=== PATIENT | male | born 1975 | race African-American/Black ===

== ENCOUNTER 2017-04-07 08:24 | Emergency (ER) | payer MEDICARE, MEDICAID ==
[2017-04-07 09:18] LABS: #Eosinphils 0.1 thou/uL (0.0-0.7); #Lymphocytes 1.3 thou/uL (1.20-3.40); #Monocytes 0.4 thou/uL (0.11-0.59); #Neutrophils 3.9 thou/uL (1.40-6.50); %Basophils 0.2 % (0.0-1.0); %Eosinophils 2.5 % (0.0-10.0); %Lymphocytes 22.4 % (21.0-51.0); %Monocytes 6.3 % (0.0-10.0); Hematocrit 31.9 % (42.0-52.0); Mean Platelet Volume 8.6 fL (7.4-10.4); Red Blood Cell (RBC) Count 3.35 mill/uL (4.70-6.10); White Blood Cell (WBC) Count 5.7 thou/uL (4.8-10.8)
[2017-04-07 09:30] LABS: ALT (SGPT) 14 U/L (8-55); AST (SGOT) 17 U/L (5-34); Alkaline Phosphatase 130 U/L (40-150); Anion Gap 23 mmol/L (10-20); BUN (Urea Nitrogen) 82 mg/dL (8.9-20.6); Bilirubin, Total 1.5 mg/dL (0.2-1.2); Calc. Creatinine Clearance 0 mL/min (70-130); Carbon Dioxide 21 mmol/L (22-29); Chloride 93 mmol/L (98-107); Estimated GFR-MDRD 5; Globulin 4.4 g/dL (2.4-3.5); Protein, Total 7.9 g/dL (6.0-8.3)
[2017-04-07] MEDS ORDERED: Mag-Al 1200 mg/1200 mg/30 ML UDCUP ONE (10:42)
[2017-04-07] MEDS ORDERED: Lidocaine Viscous Sol 2% 15 ml UD Cup ONE (10:42)
== END 2017-04-07 11:15 | disposition home or self-care (01) ==
LOC: ERS 08:24
DX: I12.0 Hypertensive chronic kidney disease with stage 5 chronic kidney disease or end stage renal disease (principal); N18.6 End stage renal disease; E11.9 Type 2 diabetes mellitus without complications; K21.9 Gastro-esophageal reflux disease without esophagitis; F32.9 Major depressive disorder, single episode, unspecified; F17.220 Nicotine dependence, chewing tobacco, uncomplicated; Z99.2 Dependence on renal dialysis
CPT/HCPCS: 36415; 80053; 85025

== ENCOUNTER 2017-04-26 06:41 | Emergency (ER) | payer MEDICARE, MEDICAID ==
[2017-04-26 07:39] LABS: Troponin I 0.016 ng/mL (< 0.028)
[2017-04-26 07:51] LABS: Hematocrit 36.3 % (42.0-52.0); Mean Platelet Volume 8.4 fL (7.4-10.4); Red Blood Cell (RBC) Count 3.59 mill/uL (4.70-6.10); White Blood Cell (WBC) Count 5.4 thou/uL (4.8-10.8)
[2017-04-26 07:57] LABS: ALT (SGPT) 35 U/L (8-55); AST (SGOT) 48 U/L (5-34); Alkaline Phosphatase 137 U/L (40-150); Anion Gap 29 mmol/L (10-20); BUN (Urea Nitrogen) 71 mg/dL (8.9-20.6); Bilirubin, Total 1.3 mg/dL (0.2-1.2); CK (CPK) 603 U/L (30-200); Calc. Creatinine Clearance 0 mL/min (70-130); Calcium 7.2 mg/dL (7.8-10.44); Carbon Dioxide 15 mmol/L (22-29); Chloride 99 mmol/L (98-107); Estimated GFR-MDRD 8; Globulin 4.5 g/dL (2.4-3.5); Lipase 26 U/L (8-78)
--- NOTE | 2017-04-26 08:13 | RAD ---
PORTABLE CHEST: DATE: 04/26/17. PROVIDED CLINICAL HISTORY: Cough. FINDINGS: Comparison is made with the study dated 01/23/17. The cardiac silhouette remains enlarged. There is rather diffuse bilateral airspace disease. No definite pleural fluid or pneumothorax evident. IMPRESSION: 1. Cardiomegaly 2. Diffuse bilateral airspace disease. Findings may reflect alveolar edema related to congestive h eart failure. Infectious and inflammatory changes are also possible. Followup is recommended. POS: [facility]
[2017-04-26 08:19] LABS: Band 2 % (5-11); Neutrophil 67 % (42-75)
== END 2017-04-26 08:55 | disposition home or self-care (01) ==
LOC: ERS 06:41
DX: E87.70 Fluid overload, unspecified (principal); I12.0 Hypertensive chronic kidney disease with stage 5 chronic kidney disease or end stage renal disease; E11.22 Type 2 diabetes mellitus with diabetic chronic kidney disease; N18.6 End stage renal disease; F17.220 Nicotine dependence, chewing tobacco, uncomplicated; F32.9 Major depressive disorder, single episode, unspecified; E78.5 Hyperlipidemia, unspecified; Z99.2 Dependence on renal dialysis; Z79.899 Other long term (current) drug therapy
CPT/HCPCS: 36415; 71010; 80053; 82553; 83690; 83880; 84484; 85025; 93005

== ENCOUNTER 2017-05-10 06:43 | Emergency (ER) | payer MEDICARE, MEDICAID ==
[2017-05-10 07:13] LABS: #Basophils 0.1 thou/uL (0.0-0.2); #Eosinphils 0.4 thou/uL (0.0-0.7); #Lymphocytes 1.7 thou/uL (1.20-3.40); #Monocytes 0.5 thou/uL (0.11-0.59); #Neutrophils 2.4 thou/uL (1.40-6.50); %Basophils 1.1 % (0.0-1.0); %Eosinophils 8.6 % (0.0-10.0); %Monocytes 9.9 % (0.0-10.0); Hematocrit 38.1 % (42.0-52.0); Mean Platelet Volume 8.6 fL (7.4-10.4); Red Blood Cell (RBC) Count 3.78 mill/uL (4.70-6.10); White Blood Cell (WBC) Count 5.1 thou/uL (4.8-10.8)
[2017-05-10 07:35] LABS: ALT (SGPT) 122 U/L (8-55); AST (SGOT) 173 U/L (5-34); Alkaline Phosphatase 153 U/L (40-150); Anion Gap 23 mmol/L (10-20); BUN (Urea Nitrogen) 67 mg/dL (8.9-20.6); Bilirubin, Total 1.3 mg/dL (0.2-1.2); CK (CPK) 585 U/L (30-200); Calc. Creatinine Clearance 0 mL/min (70-130); Calcium 7.5 mg/dL (7.8-10.44); Carbon Dioxide 25 mmol/L (22-29); Chloride 91 mmol/L (98-107); Estimated GFR-MDRD 7; Globulin 4.2 g/dL (2.4-3.5); Protein, Total 7.6 g/dL (6.0-8.3)
[2017-05-10 07:38] LABS: Troponin I 0.038 ng/mL (< 0.028)
--- NOTE | 2017-05-10 08:27 | RAD ---
EXAM: ONE VIEW CHEST: COMPARISON: 04/26/17. HISTORY: Weakness. FINDINGS: Enlarged cardiac silhouette. The pulmonary vessels are prominent. There are bilateral perihilar int erstitial and alveolar infiltrates. No pleural effusion or pneumothorax. IMPRESSION: Congestive heart failure, volume overload. POS: [facility]
--- NOTE | 2017-06-15 12:44 | EKG ---
Test Reason : Blood Pressure : / mmHG Vent. Rate : 075 BPM Atrial Rate : 075 BPM P-R Int : 192 ms QRS Dur : 106 ms QT Int : 486 ms P-R-T Axes : 057 031 225 degrees QTc Int : 542 ms Normal sinus rhythm Possible Left atrial enlargement Prolonged QT Abnormal ECG No change from 04/26/2017 Confirmed by CARLYN WEBB, JUWAN ([id number]), editorial director ASHLI LIPSCOMB ([id number]) on 06/15/2017 12:43:43 PM Referred By: Confirmed By:JUWAN ALCOCER MD
== END 2017-05-10 08:46 | disposition home or self-care (01) ==
LOC: ERS 06:43
DX: I12.0 Hypertensive chronic kidney disease with stage 5 chronic kidney disease or end stage renal disease (principal); E11.22 Type 2 diabetes mellitus with diabetic chronic kidney disease; N18.6 End stage renal disease; Z99.2 Dependence on renal dialysis; K21.9 Gastro-esophageal reflux disease without esophagitis; F32.9 Major depressive disorder, single episode, unspecified; F17.220 Nicotine dependence, chewing tobacco, uncomplicated
CPT/HCPCS: 36415; 71010; 80053; 82553; 84484; 85025; 93005; 99406

== ENCOUNTER 2017-08-30 00:56 | Emergency (ER) | payer MEDICARE, MEDICAID ==
[2017-08-30 02:15] LABS: ALT (SGPT) 30 U/L (8-55); AST (SGOT) 43 U/L (5-34); Albumin 3.6 g/dL (3.5-5.0); Alkaline Phosphatase 119 U/L (40-150); Anion Gap 19 mmol/L (10-20); BUN (Urea Nitrogen) 66 mg/dL (8.9-20.6); Bilirubin, Total 2.2 mg/dL (0.2-1.2); Calc. Creatinine Clearance 0 mL/min (70-130); Calcium 9.3 mg/dL (7.8-10.44); Carbon Dioxide 27 mmol/L (22-29); Chloride 92 mmol/L (98-107); Estimated GFR-MDRD 10; Globulin 3.6 g/dL (2.4-3.5); Glucose 156 mg/dL (70-105); Lipase 16 U/L (8-78); Protein, Total 7.2 g/dL (6.0-8.3); Sodium 134 mmol/L (136-145)
[2017-08-30 02:19] LABS: Hemoglobin 11.6 g/dL (14.0-18.0); Mean Corpuscular HGB CONC 32.7 g/dL (32.0-36.0); Mean Corpuscular Hemoglobin 33.6 pg (27.0-31.0); RBC Distribution Width 17.4 % (11.5-14.5); Red Blood Cell (RBC) Count 3.45 mill/uL (4.70-6.10); White Blood Cell (WBC) Count 5.2 thou/uL (4.8-10.8)
[2017-08-30 02:21] LABS: #Eosinphils 0.3 thou/uL (0.0-0.7); #Lymphocytes 1.6 thou/uL (1.20-3.40); #Monocytes 0.5 thou/uL (0.11-0.59); #Neutrophils 2.8 thou/uL (1.40-6.50); %Basophils 0.8 % (0.0-1.0); %Eosinophils 6.2 % (0.0-10.0); %Lymphocytes 30.1 % (21.0-51.0); %Monocytes 9.4 % (0.0-10.0); %Neutrophils 53.5 % (42.0-75.0); Mean Platelet Volume 8.7 fL (7.4-10.4); PLT Morphology Comment Appears Decreased; Platelet Count 111 thou/uL (130-400)
[2017-08-30] MEDS ORDERED: Ondansetron HCl/PF 4 MG/2 ML Vial ONE (03:11)
[2017-08-30] MEDS ORDERED: Metoclopramide HCl 10 MG/2 ML VIAL ONE (03:11)
--- NOTE | 2017-08-30 07:44 | RAD ---
CHEST 1 VIEW: HISTORY: Pain. COMPARISON: 05/10/17. FINDINGS: Heart is markedly enlarged. The pulmonary vessels are within normal limits. Costophrenic angles are clear. No consolidation or mass. No pneumothorax or osseous abnormalities. IMPRESSION: Cardiomegaly. POS: [facility]
== END 2017-08-30 04:24 | disposition home or self-care (01) ==
LOC: ERS 00:56
DX: R10.13 Epigastric pain (principal); R11.0 Nausea; E11.9 Type 2 diabetes mellitus without complications; K21.9 Gastro-esophageal reflux disease without esophagitis; I12.0 Hypertensive chronic kidney disease with stage 5 chronic kidney disease or end stage renal disease; N18.6 End stage renal disease; E78.5 Hyperlipidemia, unspecified; F32.9 Major depressive disorder, single episode, unspecified; F17.220 Nicotine dependence, chewing tobacco, uncomplicated; Z79.899 Other long term (current) drug therapy; Z79.82 Long term (current) use of aspirin; Z79.4 Long term (current) use of insulin
CPT/HCPCS: 36415; 71045; 80053; 83690; 85025; 93005; 94760; 96361; 96374; 96375; 99406; J2405; J2765

== ENCOUNTER 2017-10-02 23:19 | Emergency (ER) | payer MEDICARE, OTHER ==
[2017-10-02 23:57] LABS: #Eosinphils 0.5 thou/uL (0.0-0.7); #Lymphocytes 1.5 thou/uL (1.20-3.40); #Monocytes 0.4 thou/uL (0.11-0.59); #Neutrophils 2.9 thou/uL (1.40-6.50); %Basophils 0.6 % (0.0-1.0); %Eosinophils 8.8 % (0.0-10.0); %Lymphocytes 28.2 % (21.0-51.0); %Monocytes 8.2 % (0.0-10.0); %Neutrophils 54.3 % (42.0-75.0); Mean Corpuscular HGB CONC 32.4 g/dL (32.0-36.0); Mean Corpuscular Hemoglobin 33.5 pg (27.0-31.0); Mean Platelet Volume 9.2 fL (7.4-10.4); Platelet Count 124 thou/uL (130-400); RBC Distribution Width 16.2 % (11.5-14.5); Red Blood Cell (RBC) Count 3.88 mill/uL (4.70-6.10); White Blood Cell (WBC) Count 5.4 thou/uL (4.8-10.8)
[2017-10-03 00:38] LABS: ALT (SGPT) 20 U/L (8-55); AST (SGOT) 33 U/L (5-34); Albumin 3.7 g/dL (3.5-5.0); Alkaline Phosphatase 193 U/L (40-150); Anion Gap 21 mmol/L (10-20); BUN (Urea Nitrogen) 50 mg/dL (8.9-20.6); Bilirubin, Total 1.1 mg/dL (0.2-1.2); Calc. Creatinine Clearance 0 mL/min (70-130); Calcium 9.7 mg/dL (7.8-10.44); Carbon Dioxide 22 mmol/L (22-29); Chloride 98 mmol/L (98-107); Estimated GFR-MDRD 9; Globulin 4.5 g/dL (2.4-3.5); Glucose 199 mg/dL (70-105); Lipase 48 U/L (8-78); Potassium 4.9 mmol/L (3.5-5.1); Protein, Total 8.2 g/dL (6.0-8.3); Sodium 136 mmol/L (136-145)
[2017-10-03] MEDS ORDERED: Morphine 4 MG/ML VIAL ONE (00:46)
--- NOTE | 2017-10-03 12:35 | CT ---
PRELIMINARY REPORT/[facility]/EMERGENTY AFTER-HOURS PROCEDURE CT Abdomen and Pelvis With Intravenous Contrast CLINICAL HISTORY: 42 years old, male; Pain; Abdominal pain; Generalized; Patient HX: M42 presented to ed C/O abdominal pain with n/v/d onset 2200. Pt denies any blood in vomitus or in stool. Pt denies cp, SOB, fever, chi lls. Pt reports HX of dm. TECHNIQUE: Axial computed tomography images of the abdomen and pelvis with intravenous contrast. Coronal reforma tted images were created and reviewed. COMPARISON: No relevant prior studies available. FINDINGS: Lung bases: Unremarkable. No mass. No consolidation. Heart: Incompletely imaged enlargement of the cardiomediastinal silhouette. ABDOMEN: Liver: Prominence of the liver with normal contour without obvious cirrhotic morphology. Gallbladder and bile ducts: Status post cholecystectomy. Pancreas: Mild swelling and inflammatory changes of the pancreatic head. Spleen: Unremarkable. Adrenals: Unremarkable. Kidneys and ureters: Horseshoe kidney. Stomach and bowel: Unremarkable. Appendix: Postsurgical changes in the right lower quadrant. PELVIS: Bladder: Diffuse urinary bladder wall thickening. Reproductive: Unremarkable. ABDOMEN and PELVIS: Intraperitoneal space: Ascites present. Ascites in small left inguinal hernia. No free air. Bones/joints: No acute fracture. No dislocation. Soft tissues: See above. Vasculature: Unremarkable. No abdominal aortic aneurysm. Lymph nodes: Scattered non specific subcentimeter mesenteric and para aortic lymph nodes. IMPRESSION: 1. Mild swelling and inflammatory changes of the pancreatic head suggestive of mild acute pancreatiti s. Correlate clinically. 2. Diffuse urinary bladder wall thickening which maybe due to under distention, however cystitis is n ot completely excluded. Correlate clinically. 3. Ascites without obvious cirrhotic morphology of the liver. 4. Incompletely imaged prominence of the cardiomediastinal silhouette. Recommend chest radiograph for evaluation. Thank you for allowing us to participate in the care of your patient. Dictated and Authenticated by: Paco Marte MD 10/03/2017 2:53 AM Central Time ([place] & [place]) FINAL REPORT CT ABDOMEN AND PELVIS: Date: 10/03/17 COMPARISON: 01/17/17. HISTORY: Abdominal pain with nausea, vomiting, and diarrhea. FINDINGS: I agree with the preliminary [facility] report. Imaged lung bases demonstrate cardiac enlargement. There is mild hazy ground-glass opacity noted within the lower lobes, right greater than left. There is no fr ee intraperitoneal air. Cholecystectomy clips are present. The hepatic parenchyma appears heterogeneous. No discrete focal liver lesion is seen. Spleen is enlar ged, measuring 15.9 cm craniocaudal dimension. The pancreas is somewhat ill-defined, with fluid in the region of the pancreatic head, which could si gnify a degree of pancreatitis. There is also small volume free fluid in the left upper quadrant and right upper quadrant adjacent to the spleen and liver, respectively. Adrenal glands appear grossly un remarkable. Probable splenule noted medially in left upper quadrant. Liver appears enlarged. A horseshoe kidney is noted. Evaluation of the bowel is limited without oral contrast. There is nonspecific stranding of the feng cral space. There is free fluid in bilateral paracolic gutters and within the pelvis. The urinary won dder is decompressed and demonstrates nonspecific wall thickening. No adenopathy noted in the abdomen or pelvis. There is diffuse anasarca. No acute osseous abnormality noted. IMPRESSION: 1. Abdominal and pelvic ascites. 2. Enlarged heart. 3. Stranding and fluid near pancreatic head may be secondary to a systemic process or could reflect pancreatitis. 4. Nonspecific urinary bladder wall thickening. 5. Hepatosplenomegaly with heterogeneity of the hepatic parenchyma may signify underlying intrinsic hepatocellular disease. POS: [facility]
[2017-10-03] MEDS ORDERED: ISOVUE-370 76%-LOCM 1 ML ONE (14:20)
== END 2017-10-03 05:26 | disposition home or self-care (01) ==
LOC: ERS 23:19
DX: R10.9 Unspecified abdominal pain (principal); E11.22 Type 2 diabetes mellitus with diabetic chronic kidney disease; N18.6 End stage renal disease; E78.5 Hyperlipidemia, unspecified; F32.9 Major depressive disorder, single episode, unspecified; F17.220 Nicotine dependence, chewing tobacco, uncomplicated; K21.9 Gastro-esophageal reflux disease without esophagitis; I12.0 Hypertensive chronic kidney disease with stage 5 chronic kidney disease or end stage renal disease; Z99.2 Dependence on renal dialysis; Z79.4 Long term (current) use of insulin; Z79.82 Long term (current) use of aspirin; Z79.899 Other long term (current) drug therapy
CPT/HCPCS: 36416; 74177; 80053; 82010; 83690; 85025; 96361; 96374; J2270

== ENCOUNTER 2017-11-10 09:17 | Emergency (ER) | payer MEDICARE, MEDICAID ==
[2017-11-10 10:22] LABS: #Eosinphils 0.7 thou/uL (0.0-0.7); #Lymphocytes 2.5 thou/uL (1.20-3.40); #Monocytes 0.7 thou/uL (0.11-0.59); #Neutrophils 3.3 thou/uL (1.40-6.50); %Basophils 0.4 % (0.0-1.0); %Neutrophils 45.5 % (42.0-75.0); Hemoglobin 12.8 g/dL (14.0-18.0); Mean Corpuscular HGB CONC 31.4 g/dL (32.0-36.0); Mean Corpuscular Hemoglobin 31.4 pg (27.0-31.0); Mean Platelet Volume 8.8 fL (7.4-10.4); Platelet Count 103 thou/uL (130-400); RBC Distribution Width 14.5 % (11.5-14.5); Red Blood Cell (RBC) Count 4.06 mill/uL (4.70-6.10); White Blood Cell (WBC) Count 7.3 thou/uL (4.8-10.8)
[2017-11-10 10:34] LABS: ALT (SGPT) 25 U/L (8-55); AST (SGOT) 32 U/L (5-34); Albumin 3.9 g/dL (3.5-5.0); Alkaline Phosphatase 236 U/L (40-150); Anion Gap 17 mmol/L (10-20); BUN (Urea Nitrogen) 72 mg/dL (8.9-20.6); Bilirubin, Total 0.9 mg/dL (0.2-1.2); CK (CPK) 437 U/L (30-200); Calc. Creatinine Clearance 0 mL/min (70-130); Calcium 9.4 mg/dL (7.8-10.44); Carbon Dioxide 25 mmol/L (22-29); Chloride 96 mmol/L (98-107); Estimated GFR-MDRD 6; Globulin 4.6 g/dL (2.4-3.5); Glucose 100 mg/dL (70-105); Potassium 5.2 mmol/L (3.5-5.1); Protein, Total 8.5 g/dL (6.0-8.3); Sodium 133 mmol/L (136-145)
[2017-11-10 10:38] LABS: Troponin I 0.037 ng/mL (< 0.028)
[2017-11-10 10:41] LABS: CKMB 10.7 ng/mL (0-6.6)
[2017-11-10] MEDS ORDERED: Morphine 4 MG/ML VIAL ONE (12:10)
--- NOTE | 2017-11-10 13:11 | CT ---
CONTRAST ENHANCED CTA AORTA: HISTORY: A 42-year-old who presents to the emergency room department with a history of substernal chest pain. FINDINGS: Contrast-enhanced CTA of the chest is performed; 2D and 3D reconstructed images performed on an [employer] 3D work station. The lung parenchyma is unremarkable. No evidence of mediastinal or hilar lymphadenopathy is seen. N o evidence of axillary lymphadenopathy is seen. Some cardiomegaly is noted. The thoracic aorta and abdominal aorta are unremarkable. No evidence of aortic dissections or aneury sms seen. The liver is unremarkable. The gallbladder has been surgically removed. The patient has horseshoe k idneys. No evidence of free intraperitoneal air seen. The loops of small bowel and colon are unrema rkable. IMPRESSION: 1. Cardiomegaly. 2. Horseshoe kidney. 3. No evidence of aortic dissections or aneurysms. POS: [facility]
[2017-11-10 13:33] LABS: Troponin I 0.038 ng/mL (< 0.028)
[2017-11-10] MEDS ORDERED: ISOVUE-370 76%-LOCM 1 ML ONE (13:35)
== END 2017-11-10 16:30 | disposition home or self-care (01) ==
LOC: ERS 09:17
DX: R07.2 Precordial pain (principal); E11.22 Type 2 diabetes mellitus with diabetic chronic kidney disease; I12.0 Hypertensive chronic kidney disease with stage 5 chronic kidney disease or end stage renal disease; N18.6 End stage renal disease; E78.5 Hyperlipidemia, unspecified; F32.9 Major depressive disorder, single episode, unspecified; F17.220 Nicotine dependence, chewing tobacco, uncomplicated; K21.9 Gastro-esophageal reflux disease without esophagitis; Z99.2 Dependence on renal dialysis; Z79.4 Long term (current) use of insulin; Z79.82 Long term (current) use of aspirin; Z79.899 Other long term (current) drug therapy; Z71.6 Tobacco abuse counseling
CPT/HCPCS: 36415; 36416; 71275; 80053; 82550; 82553; 83880; 84484; 85025; 93005; 96374; 99406; J2270

== ENCOUNTER 2017-11-29 10:01 | Emergency (ER) | payer MEDICARE, MEDICAID ==
[2017-11-29 10:27] LABS: #Basophils 0.1 thou/uL (0.0-0.2); #Eosinphils 1.1 thou/uL (0.0-0.7); #Lymphocytes 2.6 thou/uL (1.20-3.40); #Monocytes 0.7 thou/uL (0.11-0.59); %Basophils 0.9 % (0.0-1.0); %Eosinophils 12.7 % (0.0-10.0); %Lymphocytes 30.5 % (21.0-51.0); %Monocytes 8.2 % (0.0-10.0); %Neutrophils 47.7 % (42.0-75.0); Hemoglobin 12.5 g/dL (14.0-18.0); Mean Corpuscular HGB CONC 32.8 g/dL (32.0-36.0); Mean Corpuscular Hemoglobin 32.2 pg (27.0-31.0); Mean Corpuscular Volume 98.1 fl (80.0-94.0); Mean Platelet Volume 7.7 fL (7.4-10.4); Platelet Count 133 thou/uL (130-400); Red Blood Cell (RBC) Count 3.87 mill/uL (4.70-6.10); White Blood Cell (WBC) Count 8.4 thou/uL (4.8-10.8)
[2017-11-29 10:44] LABS: ALT (SGPT) 19 U/L (8-55); AST (SGOT) 25 U/L (5-34); Albumin 4.2 g/dL (3.5-5.0); Alkaline Phosphatase 174 U/L (40-150); Anion Gap 20 mmol/L (10-20); BUN (Urea Nitrogen) 54 mg/dL (8.9-20.6); Bilirubin, Total 1.2 mg/dL (0.2-1.2); CK (CPK) 370 U/L (30-200); Calc. Creatinine Clearance 0 mL/min (70-130); Carbon Dioxide 28 mmol/L (22-29); Chloride 94 mmol/L (98-107); Estimated GFR-MDRD 7; Globulin 4.8 g/dL (2.4-3.5); Glucose 184 mg/dL (70-105); Potassium 5.1 mmol/L (3.5-5.1); Sodium 137 mmol/L (136-145)
[2017-11-29 11:20] LABS: CKMB 6.2 ng/mL (0-6.6); Troponin I 0.046 ng/mL (< 0.028)
[2017-11-29] MEDS ORDERED: Acetaminophen 500 MG TAB ONE (11:20)
== END 2017-11-29 12:45 | disposition home or self-care (01) ==
LOC: ERS 10:01
DX: M79.1 Myalgia (principal); E11.9 Type 2 diabetes mellitus without complications; K21.9 Gastro-esophageal reflux disease without esophagitis; E78.5 Hyperlipidemia, unspecified; I12.0 Hypertensive chronic kidney disease with stage 5 chronic kidney disease or end stage renal disease; N18.6 End stage renal disease; Z99.2 Dependence on renal dialysis; F32.9 Major depressive disorder, single episode, unspecified; F17.220 Nicotine dependence, chewing tobacco, uncomplicated; Z79.899 Other long term (current) drug therapy; Z79.4 Long term (current) use of insulin
CPT/HCPCS: 80053; 82550; 82553; 83880; 84484; 85025; 93005

== ENCOUNTER 2018-04-14 08:30 | Emergency (ER) | payer MEDICARE, MEDICAID ==
[2018-04-14 09:23] LABS: #Lymphocytes 0.7 thou/uL (1.20-3.40); #Monocytes 0.6 thou/uL (0.11-0.59); #Neutrophils 3.2 thou/uL (1.40-6.50); %Basophils 0.5 % (0.0-1.0); %Lymphocytes 16.2 % (21.0-51.0); %Monocytes 13.3 % (0.0-10.0); Hemoglobin 13.9 g/dL (14.0-18.0); Mean Corpuscular HGB CONC 30.7 g/dL (32.0-36.0); Mean Corpuscular Hemoglobin 30.5 pg (27.0-31.0); Mean Corpuscular Volume 99.3 fL (78.0-98.0); Mean Platelet Volume 8.9 fL (7.4-10.4); Platelet Count 89 thou/uL (130-400); RBC Distribution Width 15.7 % (11.5-14.5); Red Blood Cell (RBC) Count 4.57 mill/uL (4.70-6.10); White Blood Cell (WBC) Count 4.6 thou/uL (4.8-10.8)
[2018-04-14 09:45] LABS: ALT (SGPT) 23 U/L (8-55); AST (SGOT) 23 U/L (5-34); Albumin 4.3 g/dL (3.5-5.0); Alkaline Phosphatase 173 U/L (40-150); Anion Gap 17 mmol/L (10-20); BUN (Urea Nitrogen) 42 mg/dL (8.9-20.6); Bilirubin, Total 1.6 mg/dL (0.2-1.2); Calc. Creatinine Clearance 0 mL/min (70-130); Calcium 8.7 mg/dL (7.8-10.44); Carbon Dioxide 32 mmol/L (22-29); Chloride 97 mmol/L (98-107); Estimated GFR-MDRD 11; Globulin 4.2 g/dL (2.4-3.5); Glucose 101 mg/dL (70-105); Potassium 3.4 mmol/L (3.5-5.1); Protein, Total 8.5 g/dL (6.0-8.3); Sodium 143 mmol/L (136-145)
[2018-04-14 09:48] LABS: Troponin I 0.035 ng/mL (< 0.028)
--- NOTE | 2018-04-16 21:17 | EKG ---
Test Reason : Blood Pressure : / mmHG Vent. Rate : 065 BPM Atrial Rate : 065 BPM P-R Int : 194 ms QRS Dur : 124 ms QT Int : 550 ms P-R-T Axes : 067 032 237 degrees QTc Int : 572 ms Normal sinus rhythm Possible Left atrial enlargement Non-specific intra-ventricular conduction delay Abnormal ECG Unchanged from JAN 2018 Confirmed by SUNSHINE CEVALLOS D.O. ([id number]), editor in chief LILY COHEN ([id number]) on 04/16/2018 9:17:15 PM Referred By: Confirmed By:SUNSHINE CEVALLOS D.O.
== END 2018-04-14 13:21 | disposition home or self-care (01) ==
LOC: ERS 08:30
DX: E11.649 Type 2 diabetes mellitus with hypoglycemia without coma (principal); K21.9 Gastro-esophageal reflux disease without esophagitis; E11.22 Type 2 diabetes mellitus with diabetic chronic kidney disease; I12.0 Hypertensive chronic kidney disease with stage 5 chronic kidney disease or end stage renal disease; N18.6 End stage renal disease; Z99.2 Dependence on renal dialysis; E78.5 Hyperlipidemia, unspecified; F17.220 Nicotine dependence, chewing tobacco, uncomplicated; F32.9 Major depressive disorder, single episode, unspecified; Z79.899 Other long term (current) drug therapy
CPT/HCPCS: 36415; 36416; 80053; 84484; 85025; 93005

== ENCOUNTER 2018-04-15 10:03 | Inpatient (IN) | payer MEDICARE, MEDICAID ==
[2018-04-15 10:48] LABS: #Eosinphils 0.1 thou/uL (0.0-0.7); #Lymphocytes 1.2 thou/uL (1.20-3.40); #Monocytes 0.7 thou/uL (0.11-0.59); #Neutrophils 3.9 thou/uL (1.40-6.50); %Basophils 0.7 % (0.0-1.0); %Eosinophils 1.5 % (0.0-10.0); %Lymphocytes 19.9 % (21.0-51.0); %Monocytes 12.4 % (0.0-10.0); %Neutrophils 65.6 % (42.0-75.0); Hemoglobin 11.6 g/dL (14.0-18.0); Mean Corpuscular HGB CONC 30.7 g/dL (32.0-36.0); Mean Corpuscular Hemoglobin 30.9 pg (27.0-31.0); Mean Platelet Volume 9.8 fL (7.4-10.4); Platelet Count 93 thou/uL (130-400); RBC Distribution Width 15.6 % (11.5-14.5); Red Blood Cell (RBC) Count 3.75 mill/uL (4.70-6.10)
[2018-04-15 11:13] LABS: Troponin I 0.047 ng/mL (< 0.028)
[2018-04-15 11:16] LABS: ALT (SGPT) 21 U/L (8-55); AST (SGOT) 24 U/L (5-34); Albumin 3.7 g/dL (3.5-5.0); Alkaline Phosphatase 141 U/L (40-150); Anion Gap 17 mmol/L (10-20); BUN (Urea Nitrogen) 58 mg/dL (8.9-20.6); Bilirubin, Total 1.1 mg/dL (0.2-1.2); Calc. Creatinine Clearance 0 mL/min (70-130); Calcium 8.8 mg/dL (7.8-10.44); Carbon Dioxide 27 mmol/L (22-29); Chloride 91 mmol/L (98-107); Estimated GFR-MDRD 9; Globulin 3.7 g/dL (2.4-3.5); Glucose 534 mg/dL (70-105); Potassium 4.6 mmol/L (3.5-5.1); Protein, Total 7.4 g/dL (6.0-8.3)
[2018-04-15 11:19] LABS: CKMB 9.3 ng/mL (0-6.6)
[2018-04-15 12:05] LABS: Sodium 130 mmol/L (136-145)
[2018-04-15] MEDS ORDERED: Insulin Regular 300 UNITS/3 ML VIAL ONE (12:31)
--- NOTE | 2018-04-15 13:50 | RAD ---
PORTABLE CHEST ONE VIEW: 04/15/2018 9:46 a.m. HISTORY: Hypoglycemia. COMPARISON: 01/29/2018 FINDINGS: The heart is enlarged. There is pulmonary vascular congestion. No pneumothoraces or large effusion s are seen. IMPRESSION: Findings suspicious for congestive heart failure. POS: [facility]
[2018-04-15 15:36] VITALS: BMI 30.9
[2018-04-15 18:02] LABS: Troponin I 0.056 ng/mL (< 0.028)
[2018-04-15] MEDS ORDERED: ALPRAZolam 0.25 MG TAB PO PRN (20:16)
[2018-04-15] MEDS ORDERED: Docusate 100 MG CAP PO PRN (20:17)
[2018-04-15] MEDS ORDERED: HumaLOG 300 UNITS/3 ML VIAL SC SCH (20:30)
[2018-04-15] MEDS: Carvedilol 6.25 MG TAB PO SCH (21:39)
[2018-04-15] MEDS: hydrALAZINE 25 MG TAB PO SCH (21:40)
[2018-04-15] MEDS: Rosuvastatin 10 MG TAB PO SCH (21:41)
[2018-04-15] MEDS: Montelukast Sodium 10 mg Tablet PO SCH (21:41)
[2018-04-15] MEDS: Insulin Glargine 12 UNITS in Pre-Filled Syringe 1 EACH SC SCH (21:42)
[2018-04-15] MEDS: Lisinopril 20 MG TAB PO SCH (21:42)
[2018-04-16] MEDS ORDERED: HumaLOG 300 UNITS/3 ML VIAL SC SCH ×2 (07:30)
[2018-04-16] MEDS: Cinacalcet HCl 30 MG TAB PO SCH (07:52)
[2018-04-16] MEDS: Metoclopramide HCl 10 MG TAB PO SCH ×3 (07:53→18:30)
[2018-04-16] MEDS: Sevelamer Carbonate 800 MG TAB PO SCH ×3 (07:54→18:31)
[2018-04-16] MEDS: Calcium Acetate 667 MG CAP PO SCH ×3 (07:54→18:30)
[2018-04-16] MEDS: Carvedilol 6.25 MG TAB PO SCH ×2 (09:03→21:57)
[2018-04-16] MEDS: Lisinopril 20 MG TAB PO SCH ×2 (09:03→21:58)
[2018-04-16] MEDS: Insulin Glargine 12 UNITS in Pre-Filled Syringe 1 EACH SC SCH (10:13)
[2018-04-16] MEDS: hydrALAZINE 25 MG TAB PO SCH ×3 (10:54→21:57)
--- NOTE | 2018-04-16 12:26 | HP ---
DATE OF ADMISSION: 04/15/2018 REASON FOR ADMISSION AND CHIEF COMPLAINT: Hyperglycemia, HISTORY OF PRESENT ILLNESS: Mr. Fragoso is a 42-year-old -Citizen Of [place] male with past medical history of end-stage renal disease, diabetes, and hypertension who was found to have elevated blood sugars at home. The patient had Lantus insulin as well as regular insulin, Humalog, twice a day. Three to four days ago, he actually had low blood sugars. He claims he had eaten more than usual and his blood sugar went up to more than 500. He called the EMS and he came to the hospital. In the ER, the patient was found to have hyperglycemia , sugar was 534, received 10 units of regular insulin, and being admitted for further management of his hyperglycemia. Currently, the patient feels better. PAST MEDICAL HISTORY: 1. Insulin-dependent diabetes mellitus. 2. Hypertension. 3. End-stage renal disease, on hemodialysis. 4. Peripheral vascular disease. 5. Chronic anemia. 6. Hypertensive cardiomyopathy. PAST SURGICAL HISTORY: Status post BKA, left. CURRENT MEDICATIONS: The patient is on Xanax 0.25 mg daily p.r.n., PhosLo t.i.d., Coreg 12.5 b.i.d., vitamin D 1000 units daily, Procrit weekly, hydralazine 100 mg t.i.d., Levemir insulin 10 units b.i.d. and Humalog insulin 10 units b.i.d. before meals, lisinopril 20 mg b.i.d., metoclopramide 5 mg before meals and at bedtime, Singulair 10 mg daily, omeprazole 20 mg daily, Crestor 10 mg at bedtime, sertraline 100 mg at bedtime, Renvela 1600 mg t.i.d. ALLERGIES: NKDA. FAMILY HISTORY: Nothing of interest. SOCIAL HISTORY: The patient lives with nephew. No history of smoking. No history of alcohol intake. REVIEW OF SYSTEMS: Unremarkable except for elevated blood sugar. PHYSICAL EXAMINATION: GENERAL: The patient is alert, awake, oriented x3. VITAL SIGNS: Temperature 98, pulse 77, respirations 20, blood pressure 111/80. HEENT: Head is normocephalic, atraumatic. Pupils equal and reactive to light. Nasopharynx is pale and dry. Hard and soft palate, no lesions. SKIN: Skin turgor decreased. NECK: Supple. No JVD. LUNGS: Bilateral air entry. No rales, no rhonchi. HEART: S1, S2 regular. ABDOMEN: Soft. No distention, no tenderness. Normal bowel sounds noted. RECTAL: Deferred. CENTRAL NERVOUS SYSTEM: No focal deficit. LABORATORY AND X-RAY FINDINGS: CBC shows WBC 6, hemoglobin 11.7, hematocrit 37 , platelets 93. Metabolic panel: Sodium 130, potassium 4.6, chloride 91, CO2 of 27, BUN 58, creatinine 8.24, glucose 534. Troponin I is 0.06. EKG showed normal sinus rhythm. No acute ST-T wave changes seen. Chest x-ray, there is pulmonary vascular congestion. ASSESSMENT: 1. Uncontrolled diabetes mellitus with hyperglycemia. 2. Hypertension. 3. End-stage renal disease. 4. Peripheral vascular disease. 5. elevated TroponinI, possibly secondary to renal failure. PLAN: 1. Vital signs q.4 hours. 2. Activity: As tolerated. 3. Allergies: NKDA. 4. Hep-Lock. 5. Accu-Cheks before meals and at bedtime. Continue his home medications. We will monitor his blood sugars and he will be discharged home soon. JANES
--- NOTE | 2018-04-16 13:37 | CON ---
DATE OF CONSULTATION: 04/16/2018 HISTORY OF PRESENT ILLNESS: Mr. Fragoso is 42-year-old black male with ESRD and admitted for hypergl ycemia. He also misses dialysis. We are now being consulted for his maintenance hemodialysis. He a lso was complaining of some proctitis. REVIEW OF SYSTEMS: No chest pain. Positive for renal discomfort. No nausea, no vomiting, no headac he, no chest pain or shortness of breath. Appetite fair. Energy level is fair. No hematochezia, no melena, no hematemesis, no dysuria, no urine frequency. MEDICATIONS: Renvela 800 mg 2 tabs t.i.d. with meals, tramadol 50 mg b.i.d., Zoloft 100 mg once a da y, Reglan 10 mg p.r.n., Protonix 40 mg tab once a day, vitamin D3 of 2000 units every day, Levemir in sulin 20 units subcu b.i.d., hydralazine 100 mg once a day?, Crestor 10 mg at bedtime, losartan 100 m g daily, clonidine 0.1 mg b.i.d., carvedilol 25 mg b.i.d., amlodipine 10 mg tab once day, albuterol s ulfate p.r.n. PAST MEDICAL HISTORY: 1. ESRD from diabetic nephropathy. 2. Type 2 diabetes mellitus. 3. Hypertension. 4. Chronic blindness. 5. History of noncompliance. 6. COPD. 7. Peripheral vascular disease. 8. Diabetic gastroparesis. 9. Status post CHF. 10. Hyperlipidemia. 11. Chronic pain. 12. Diabetic retinopathy. PAST SURGICAL HISTORY: 1. Status post cuffed hemodialysis catheter placement. 2. Status post left BKA. 3. Status post AV fistula placement. 4. Status post skin graft. SOCIAL HISTORY: The patient lives in [place] with his sister. He is single. No children. No alco hol intake. No history of smoking, no IV drug abuse. Status post blood transfusion. 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 Education, high school. Sedentary lifestyle. ALLERGIES: None. TRAUMA: None. IMMUNIZATIONS: Up to date. HOSPITALIZATIONS: Please see past medical history. FAMILY HISTORY: No family history of ESRD. PHYSICAL EXAMINATION: VITAL SIGNS: Blood pressure 129/76, heart rate 73, respiratory rate 15, temperature 97.9, pulse ox 9 2%. GENERAL: Noted to be awake, alert, supine, comfortable, not in distress. SKIN: Adequate turgor. HEENT: He has pinkish conjunctivae, anicteric sclerae. Decreased visual alacrity of both eyes. NECK: No neck mass, no carotid bruits, no JVD. LUNGS: Clear breath sounds, no wheezing, no crackles. HEART: Normal sinus rhythm. No murmur, no gallops or rubs. ABDOMEN: Globular, soft, nontender, no masses. EXTREMITIES: No edema, status post left BKA. LABORATORY: Of 04/15/2018: White count 6, hemoglobin 11.6. Sodium was noted at 130, potassium 4.6, chloride 91, carbon dioxide 21, BUN 58, creatinine 8.24, glucose 534, calcium 8.8. 04/15/2018 glucose 275. 04/15/2018. Chest x-ray shows increased lung markings. ASSESSMENT AND PLAN: 1. End-stage renal disease. The patient missed dialysis yesterday and chest x-ray shows increased v olume, increased lung markings. My plan is to do a 4-hour hemodialysis. Attempt 3-4 liters of fluid removal as tolerated by the patient. We will then resume his Wednesday, Wednesday, Wednesday hemodialysis regimen next week. 2. Hyperglycemia, much improved. Patient has history of noncompliance. Patient was counseled. Rev iew of his last KT/V from the dialysis clinic suggests he is adequately dialyzed with the current arianna lysis regimen. Agree with current management.
[2018-04-16] MEDS ORDERED: Loperamide HCl 2 MG CAP PO PRN (15:45)
[2018-04-16] MEDS: HumaLOG 300 UNITS/3 ML VIAL SC SCH (18:30)
[2018-04-16] MEDS: Rosuvastatin 10 MG TAB PO SCH (21:57)
[2018-04-16] MEDS: Montelukast Sodium 10 mg Tablet PO SCH (21:58)
[2018-04-17] MEDS: Sevelamer Carbonate 800 MG TAB PO SCH ×3 (08:12→17:28)
[2018-04-17] MEDS: Carvedilol 6.25 MG TAB PO SCH ×2 (08:12→21:56)
[2018-04-17] MEDS: Lisinopril 20 MG TAB PO SCH ×2 (08:12→21:55)
[2018-04-17] MEDS: Calcium Acetate 667 MG CAP PO SCH ×3 (08:13→17:27)
[2018-04-17] MEDS: Cinacalcet HCl 30 MG TAB PO SCH (08:13)
[2018-04-17] MEDS: Metoclopramide HCl 10 MG TAB PO SCH ×3 (08:13→17:28)
[2018-04-17] MEDS ORDERED: Insulin Glargine 20 UNITS in Pre-Filled Syringe 1 EACH SC SCH (09:00)
--- NOTE | 2018-04-17 09:11 | PRG ---
DATE OF SERVICE: 04/17/2018 SUBJECTIVE: Mr. Fragoso is a 42-year-old black male with end-stage renal disease - on maintenance he modialysis and admitted for hyperglycemia. We were consulted for his maintenance hemodialysis. He m issed dialysis on Wednesday and for that reason yesterday, he underwent his regular 4-hour dialysis. He tolerated the said treatment. This morning, he is feeling better. He denies any chest pain or shor tness of breath. No other complaints today. PHYSICAL EXAMINATION: VITAL SIGNS: Blood pressure is 122/70, heart rate 75, respiratory rate 13, temperature 98.7, pulse o x 95%. GENERAL: Awake, alert, supine, comfortable, not in distress. HEENT: Pinkish conjunctivae, anicteric sclerae. Decreased visual acuity. NECK: No neck mass, no carotid bruits, no JVD. LUNGS: Clear breath sounds, no wheezing, no crackles. HEART: Normal sinus rhythm. No murmur, no gallops or rubs. ABDOMEN: Globular, soft, nontender, no masses. EXTREMITIES: No edema, no deformities. MEDICATIONS: Of 04/17/2018 was reviewed. LABORATORY DATA: Of 04/15/2018, white count 6, hemoglobin 11.6. On 04/17/2018, glucose 192. On 07/2017, sodium 130, potassium 4.6, chloride 91, carbon dioxide 27, BUN 58, creatinine 8.24, glucose 534. Albumin 3.7. ASSESSMENT AND PLAN: 1. End-stage renal disease, stable. Tolerating current hemodialysis regimen. I have scheduled him for his regular dialysis tomorrow, Wednesday, Wednesday, and Wednesday. Again, fluid removal only as ayleen ated by the patient. 2. Congestive heart failure - max out fluid removal with dialysis. 3. Anemia, on maintenance. Epogen. 4. Hyperglycemia, labile. Adjusting insulin per his PCP. Agree with current management.
[2018-04-17] MEDS: hydrALAZINE 25 MG TAB PO SCH ×3 (09:39→21:55)
[2018-04-17] MEDS: HumaLOG 300 UNITS/3 ML VIAL SC SCH ×2 (11:53→17:30)
[2018-04-17] MEDS ORDERED: Sodium Chloride 0.9% 10 ML ONE (20:33)
[2018-04-17] MEDS: Rosuvastatin 10 MG TAB PO SCH (21:56)
[2018-04-17] MEDS: Montelukast Sodium 10 mg Tablet PO SCH (21:56)
[2018-04-18 06:12] LABS: Anion Gap 15 mmol/L (10-20); BUN (Urea Nitrogen) 50 mg/dL (8.9-20.6); Calc. Creatinine Clearance 17 mL/min (70-130); Carbon Dioxide 28 mmol/L (22-29); Chloride 94 mmol/L (98-107); Estimated GFR-MDRD 9; Glucose 273 mg/dL (70-105); Potassium 4.5 mmol/L (3.5-5.1); Sodium 132 mmol/L (136-145)
[2018-04-18] MEDS: Calcium Acetate 667 MG CAP PO SCH ×3 (07:49→17:32)
[2018-04-18] MEDS: Sevelamer Carbonate 800 MG TAB PO SCH ×3 (07:49→17:36)
[2018-04-18] MEDS: Metoclopramide HCl 10 MG TAB PO SCH ×3 (07:49→17:32)
[2018-04-18] MEDS: hydrALAZINE 25 MG TAB PO SCH ×3 (07:50→20:29)
--- NOTE | 2018-04-18 08:48 | PRG ---
DATE OF SERVICE: 04/18/2018 SUBJECTIVE: Mr. Fragoso is a 42-year-old black male with ESRD who was initially admitted for hypergl ycemia. We are following him up for his maintenance hemodialysis. He is currently undergoing dialys is this morning. I am at the bedside supervising his dialysis. He is tolerating said treatment. No complaints of chest pain or shortness of breath. PHYSICAL EXAMINATION: VITAL SIGNS: Blood pressure 101/59, heart rate 73, respiratory rate 20, temperature 98, pulse ox 100 %. GENERAL: Awake, alert, supine, comfortable, not in distress. Decreased visual acuity. LUNGS: Decreased breath sounds. No wheezing. HEART: Normal sinus rhythm. No murmur, no gallops, no rubs. ABDOMEN: Globular, soft, nontender, no masses. EXTREMITIES: No edema, no deformities. MEDICATIONS: 04/18/2018 - Reviewed. LABORATORY DATA: 04/15/2018 - White count 6, hemoglobin 11.6. 04/18/2018 - Sodium 132, potassium 4.5, chloride 94, carbon dioxide 28, BUN 50, creatinine 8.22, gluc ose 273, calcium 8. ASSESSMENT AND PLAN: 1. Hyperglycemia, much improved. Continue current management. 2. Anemia, on 3 times a week subcutaneous Epogen, stable. 3. End-stage renal disease, stable. Tolerating current hemodialysis regimen. Fluid removal only as tolerated. No changes to be made with his Wednesday, Wednesday, Wednesday hemodialysis regimen.
[2018-04-18] MEDS ORDERED: MAGNESIUM CITRATE PO SCH (09:00)
[2018-04-18] MEDS ORDERED: Insulin Glargine 24 UNITS in Pre-Filled Syringe 1 EACH SC SCH (09:00)
[2018-04-18] MEDS: Cinacalcet HCl 30 MG TAB PO SCH (12:13)
[2018-04-18] MEDS: Carvedilol 6.25 MG TAB PO SCH ×2 (12:13→20:29)
[2018-04-18] MEDS: Insulin Glargine 22 UNITS in Pre-Filled Syringe 1 EACH SC SCH (12:14)
[2018-04-18] MEDS: Lisinopril 20 MG TAB PO SCH ×2 (12:15→20:30)
[2018-04-18] MEDS: HumaLOG 300 UNITS/3 ML VIAL SC SCH ×2 (12:19→18:09)
[2018-04-18] MEDS: Epoetin (ESRD) 20,000 UNITS/ML SC SCH (12:38)
[2018-04-18] MEDS ORDERED: Sodium Chloride 0.9% 10 ML ONE (20:47)
[2018-04-18] MEDS: Montelukast Sodium 10 mg Tablet PO SCH (21:09)
[2018-04-18] MEDS: Rosuvastatin 10 MG TAB PO SCH (21:09)
--- NOTE | 2018-04-19 04:04 | CON ---
DATE OF CONSULTATION: 04/29/2018 HISTORY OF PRESENT ILLNESS: Stephan Fragoso is a 42-year-old black male with longstanding history of end-stage renal disease. He has been seen and evaluated by Dr. Melendez in the past. He apparently had cardiac catheterization with only minimal coronary artery disease, but has been admitted multiple times with chest discomfort. He also has a nonischemic cardiomyopathy with ejection fraction as low as 15% up to 40% in the past. His most recent echocardiogram was in 01/2017 and ejection fraction was 20%-25% at that time. Most recent admission was from 01/30/2018 through the 02/02/2018 for generalized weakness and metabolic encephalopathy as well as chest pain. He now is admitted due to the elevated blood glucose at home. Blood sugar was 534 in the emergency room. He denies any chest discomfort. He does complain at times palpitations at home. He states these may last for 5-10 minutes. During this admission, he has been found to have 49 seconds of wide complex tachycardia with rate of 120-140 per minute. PAST MEDICAL HISTORY: End-stage renal disease on hemodialysis, hypertension, diabetes, GERD, peripheral vascular disease, status post left [id number]-[id number] amputation and right foot amputation, hypercholesterolemia. OPERATIONS: Cholecystectomy, right foot amputation, left [id number] amputation, AV fistula placement. MEDICATIONS: Xanax 0.25 daily p.r.n., PhosLo t.i.d., carvedilol 12.5 b.i.d., vitamin D daily, Sensipar 90 mg daily, Procrit, hydralazine 100 t.i.d., Humalog , Levemir, Zestril 20 mg b.i.d., metoclopramide 5 mg a.c, Singulair 10 mg q.p.m. , Prilosec 20 daily, Crestor 10 mg at bedtime, sertraline 100 at bedtime, Renvela 1600 mg t.i.d. ALLERGIES: None. SOCIAL HISTORY: Does not smoke or drink. FAMILY HISTORY: Positive for coronary artery disease. REVIEW OF SYSTEMS: Unremarkable except for blindness. PHYSICAL EXAMINATION: VITAL SIGNS: 130/78, pulse of 76. HEENT: PERRL. He is blind on both eyes. CHEST: Clear. CARDIAC: S1 and S2 are normal, without any S3, S4 or murmurs. ABDOMEN: Normal bowel sounds, without tenderness, organomegaly. EXTREMITIES: Revealed left ptbvb-rnx-nrmy amputation. There is 1+ pretibial edema in the right leg. LABORATORY DATA: Hemoglobin 11.6, hematocrit 37.8, white count 6000, platelets 93,000. Sodium 132, potassium 4.5, chloride 94, carbon dioxide 28, BUN 50, creatinine 8.22. IMPRESSION: 1. A 49 seconds of wide complex tachycardia, probable ventricular tachycardia, although the rate is somewhat slow. 2. Nonischemic cardiomyopathy with last ejection fraction of 20%-25% in 2016. 3. End-stage renal disease on dialysis. 4. Minimal coronary artery disease. 5. Hypertension. 6. Hypercholesterolemia. 7. Diabetes. PLAN: Echocardiogram will be performed to reassess left ventricular function. Electrophysiology will be consulted for consideration of an ICD and further evaluation of this arrhythmia. [facility] CENTERHasmukh
[2018-04-19] MEDS: Cinacalcet HCl 30 MG TAB PO SCH (08:40)
[2018-04-19] MEDS: Sevelamer Carbonate 800 MG TAB PO SCH ×3 (08:41→16:24)
[2018-04-19] MEDS: Calcium Acetate 667 MG CAP PO SCH ×3 (08:41→16:23)
[2018-04-19] MEDS: Lisinopril 20 MG TAB PO SCH ×2 (08:42→21:32)
[2018-04-19] MEDS: Carvedilol 6.25 MG TAB PO SCH ×2 (08:42→21:32)
[2018-04-19] MEDS: hydrALAZINE 25 MG TAB PO SCH ×3 (08:43→21:31)
[2018-04-19] MEDS: Metoclopramide HCl 10 MG TAB PO SCH ×3 (08:44→16:29)
[2018-04-19] MEDS: Insulin Glargine 22 UNITS in Pre-Filled Syringe 1 EACH SC SCH (08:46)
--- NOTE | 2018-04-19 10:43 | PRG ---
DATE OF SERVICE: 04/19/2018 SUBJECTIVE: Mr. Fragoso is a 42-year-old black male with ESRD, [facility] hemod[facility]. He underwent hemodialysis yesterday with significant fluid remov al. He also has been noted to have wide complex tachycardia - most likely V-tach and has been evalua sudha by Dr. Benitez. Cardiac echo has been ordered. Please note, his last EF was 20%-25%. The poss ibility of an AICD placement is being considered. This morning, he denies any chest pain or shortnes s of breath. The patient is asymptomatic. PHYSICAL EXAMINATION: VITAL SIGNS: Blood pressure 119/72, heart rate 73, respiratory rate 18, temperature 98.5, pulse ox 9 6%. GENERAL EXAM: Noted to be awake, alert, sitting comfortable, not in distress. SKIN: Adequate turgor. HEENT: Pinkish conjunctivae, anicteric sclerae. NECK: No neck mass, no carotid bruits, no JVD. Decreased visual acuity. LUNGS: Clear breath sounds, no wheezing, no crackles. HEART: Normal sinus rhythm. No murmur, no gallops, no rubs. ABDOMEN: Globular, soft, nontender. No masses. EXTREMITIES: No edema, no deformities. MEDICATIONS: Medications of 04/19/2018 were reviewed. LABORATORY DATA: Laboratories of 04/15/2018, white count 6, hemoglobin 11.6. 04/18/2018, sodium 132 , potassium 4.5, chloride 94, carbon dioxide 28, BUN 50, creatinine 8.22, glucose 273, calcium 8. , glucose 248. ASSESSMENT AND PLAN: 1. Ventricular tachycardia - Cardiology is evaluating the patient. Repeat cardiac echocardiogram liu s been ordered. 2. End-stage renal disease, stable. We will continue current hemodialysis regimen. Again, fluid re moval as tolerated. 3. Congestive heart failure. Maxing out fluid removal with dialysis. Currently on LEILA inhibitors a nd on Coreg. Overall, agree with current management. Recheck base met and CBC in a.m.
[2018-04-19] MEDS: HumaLOG 300 UNITS/3 ML VIAL SC SCH ×2 (11:50→16:24)
--- NOTE | 2018-04-19 12:55 | PQF ---
CLINICAL DOCUMENTATION IMPROVEMENT CLARIFICATION FORM: ICD-10 Updated PLEASE DO AN ADDENDUM TO THE PROGRESS NOTE WITH ANY DOCUMENTATION UPDATES OR ADDITIONS AND CARRY THROUGH TO DC SUMMARY. THANK YOU. DATE: 04/19/18 ATTN: DR. BAUMANN Please exercise your independent, professional judgment in responding to the clarification form. Clinical indicators are provided on the bottom of this form for your review Please check appropriate box(s): HEART FAILURE: A. TYPE: [ ] Systolic / HFrEF [ ] Diastolic / HFpEF [ ] Combined Systolic / Diastolic B. ACUITY [ ] Acute [ ] Acute on Chronic [ ] Chronic [ y] Other diagnosis ___fluid over load [ ] Unable to determine In addition, please specify: Present on Admission (POA): [ ] Yes [ y ] No [ ] Unable to determine For continuity of documentation, please document condition throughout progress notes and discharge summary. Thank You. CLINICAL INDICATORS - SIGNS / SYMPTOMS / LABS PROGRESS NOTE 04/17 (DR. SANTO ): "CONGESTIVE HEART FAILURE-MAX OUT FLUID REMOVAL WITH DIALYSIS" BNP 04/15: 4562.1 RISKS: HYPERTENSION ESRD CAD VTACH TREATMENT: CARDIOLOGY CONSULT TELEMETRY MONITORING HEMODIALYSIS LISINOPRIL (04/15-PRESENT) COREG (04/15-PRESENT) (This form is maintained as a part of the permanent medical record) 2014 [employer] All Rights Reserved [email or web address] Office: [phone] JANES
[2018-04-19] MEDS: Montelukast Sodium 10 mg Tablet PO SCH (21:32)
[2018-04-19] MEDS: Rosuvastatin 10 MG TAB PO SCH (21:32)
[2018-04-20 06:15] LABS: Anion Gap 14 mmol/L (10-20); BUN (Urea Nitrogen) 44 mg/dL (8.9-20.6); Calc. Creatinine Clearance 17 mL/min (70-130); Calcium 8.2 mg/dL (7.8-10.44); Carbon Dioxide 31 mmol/L (22-29); Chloride 92 mmol/L (98-107); Estimated GFR-MDRD 9; Glucose 154 mg/dL (70-105); Potassium 4.4 mmol/L (3.5-5.1); Sodium 133 mmol/L (136-145)
[2018-04-20 06:22] LABS: Hemoglobin 11.3 g/dL (14.0-18.0); Lymphocytes 35 % (21-51); MDiff Complete? YES; Mean Corpuscular HGB CONC 30.9 g/dL (32.0-36.0); Mean Corpuscular Hemoglobin 30.7 pg (27.0-31.0); Mean Corpuscular Volume 99.3 fL (78.0-98.0); Mean Platelet Volume 8.1 fL (7.4-10.4); Monocytes 17 % (0-10); Neutrophil 48 % (42-75); PLT Morphology Comment Appears Adequate; Platelet Count 125 thou/uL (130-400); RBC Distribution Width 15.3 % (11.5-14.5); Red Blood Cell (RBC) Count 3.67 mill/uL (4.70-6.10); White Blood Cell (WBC) Count 4.9 thou/uL (4.8-10.8)
--- NOTE | 2018-04-20 08:08 | CON ---
ELECTROPHYSIOLOGY CONSULTATION DATE OF CONSULTATION: 04/19/2018 REFERRING PHYSICIAN: Ankit Melendez MD REASON FOR CONSULTATION: Wide complex tachycardia, ventricular tachycardia, and cardiomyopathy. HISTORY OF PRESENT ILLNESS: Mr. Fragoso is a 42-year-old -[place] male with a very complicat ed and long past medical history. He has end-stage renal disease, requiring hemodialysis. He has fo llowed with Dr. Melendez in the past and has had a left heart catheterization revealing only minimal coronary artery disease, but has had many prior admissions reporting chest pain. He has a history of nonischemic cardiomyopathy with an ejection fraction as low as 15%, occasionally, it documented up t o 40%. An echocardiogram from this hospital's records from January of last year revealed an ejection fraction of 20-25%. Mr. Fragoso is resting in bed comfortably, currently. When asked why he came to the hospital this time, he reports that he came in because of elevated blood glucose at home. On pr esentation to the emergency room, his serum glucose was 534. He has undergone treatment for this and blood sugars have stabilized since then. He has been on telemetry, been monitored and was found to have 49 seconds run of slow ventricular tachycardia with ventricular rates initially approximately as low as 120 beats per minute that increased slightly to 140 beats per minute. Fusion beats were seen during the slower rates. Mr. Fragoso currently denies any heart racing, palpitations, chest pain, pressure, syncope, near sync ope, stroke, stroke-like symptoms. He does report that 6 weeks past and multiple times throughout hi s life, he has passed out from blood sugar issues, but denies any syncopal episodes in any setting ot her than diabetic and stability. REVIEW OF SYSTEMS: Negative for fevers, chills, malaise, or unintentional weight loss. Denies swall owing difficulty. He is blind. Denies speech changes. Denies heart racing, palpitation, chest pain or pressure, syncope, near syncope, stroke or stroke-like symptoms. He denies nausea, vomiting, or diarrhea. PAST MEDICAL HISTORY: 1. End-stage renal disease on hemodialysis. 2. Hypertension. 3. Diabetes. 4. GERD. 5. Peripheral vascular disease. 6. BKA on the left, right foot amputation. 7. Hypercholesterolemia. ALLERGIES: None. HOME MEDICATIONS: Include Xanax as needed, PhosLo t.i.d., Coreg 12.5 mg b.i.d., vitamin D daily, Sen sipar 90 mg daily, Procrit, hydralazine 100 mg t.i.d., Humalog as directed, Levemir as directed, Zest ril 20 mg b.i.d., Reglan 5 mg before meals, Singulair 10 mg q.p.m., Prilosec 20 mg daily, Crestor 10 mg at bedtime, sertraline 100 mg p.o. at bedtime, and Renvela 1600 mg p.o. t.i.d. SOCIAL HISTORY: Negative for tobacco, alcohol, or illicit drug use. FAMILY HISTORY: Positive for coronary artery disease, negative for sudden cardiac . PHYSICAL EXAMINATION: VITAL SIGNS: Most recent vital signs are 98.3, heart rate 80, blood pressure 130/76, oxygen is 98% o n room air, respirations 18. GENERAL: Mr. Fragoso is alert, oriented, but a poor historian. He is normocephalic, atraumatic. 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 NECK: Supple without jugular venous distention. CHEST: Clear to auscultation bilaterally. Respirations are even and unlabored. HEART: Heart rate is regularly regular with a crisp S1, S2. No significant murmur, rub, or gallop. PMI is nondisplaced. ABDOMEN: Obese, soft, nontender without palpable masses. EXTREMITIES: Warm and dry. They do reveal left AKA and right foot amputation. NEUROLOGIC: Grossly intact and nonfocal. DATABASE: EKG and telemetry were all personally reviewed and largely reflects sinus rhythm. On 08/2017 at 1810 hours, patient had a 49 second run of slow ventricular tachycardia with evidence of fu angelina beats. Ventricular rate was approximately 120 beats per minute, but would go as fast as approxi mately 140. Echocardiogram from 01/2017, reveals ejection fraction of 20-25%. Repeat echocardiogram this hospitalization is pending. Chest x-ray on 04/15, had suspicion for congestive heart failure. LABORATORY DATA: Hematology unremarkable other than mild anemia. Chemistry performed on 04/18, pota ssium 4.5, BUN 50, creatinine 8.22. Serial troponins were essentially negative less than 0.06. IMPRESSION: 1. Sustained wide complex tachycardia, likely ventricular tachycardia and self terminating, monomorp hic with evident fusion beats, duration 49 seconds. 2. Chronic systolic heart failure with nonischemic cardiomyopathy and a severely reduced ejection fr action of 20-25% by echo in 01/2017. 3. End-stage renal disease on hemodialysis. 4. Brittle diabetic. 5. History of syncope. PLAN AND RECOMMENDATIONS: We had a discussion with Mr. Fragoso about cardiomyopathy and the propensi ty for ventricular arrhythmias. We discussed ICD and antiarrhythmic therapy with amiodarone for arrh ythmia suppression. For now, patient declines ICD and is in favor of medical management alone. For now, we will continue and optimize beta-francoise therapy with consideration for amiodarone in the futu re. Ultimately, I think the patient would like to discuss it with his family who is not present toda y. We will be back tomorrow to reevaluate the patient and family is available, more than happy to sp eak with him about as well. Thank you for allowing us to participate in the care of this patient. We will continue to follow thr ough his hospital stay.
[2018-04-20] MEDS: Cinacalcet HCl 30 MG TAB PO SCH (08:32)
[2018-04-20] MEDS: Metoclopramide HCl 10 MG TAB PO SCH ×3 (08:33→17:15)
[2018-04-20] MEDS: Sevelamer Carbonate 800 MG TAB PO SCH ×3 (08:33→17:15)
[2018-04-20] MEDS: Calcium Acetate 667 MG CAP PO SCH ×3 (08:34→17:14)
[2018-04-20] MEDS: Insulin Glargine 22 UNITS in Pre-Filled Syringe 1 EACH SC SCH (08:36)
[2018-04-20] MEDS: Carvedilol 25 MG TAB PO SCH ×2 (09:00→20:13)
[2018-04-20] MEDS: hydrALAZINE 25 MG TAB PO SCH ×3 (09:00→20:13)
[2018-04-20] MEDS: Lisinopril 20 MG TAB PO SCH ×2 (09:00→20:12)
--- NOTE | 2018-04-20 09:37 | PDOC.CTH ---
Cardiology Progress Note - Subjective EP progress note: Feeling well. No cardiac concerns or complaints. No heart racing, palpitation, or passing out - Objective Vital Signs Temp Pulse Resp BP Pulse Ox 04/20/18 07:35 98.5 F 74 18 118/80 95 04/20/18 04:00 98.1 F 75 18 117/68 95 Weight 212 lb 8 oz 04/19/18 04/20/18 04/21/18 06:59 06:59 06:59 Intake Total 280 600 Output Total 0 Balance 280 600 - Physical Examination General/Neuro: alert & oriented x3, NAD Neck: carotid US brisk, no JVD present Lungs: CTA, unlabored respirations Heart: PMI normal, RRR Abdomen: NT/ND, soft - Telemetry Telemetry Rhythm: SR - Labs Result Diagrams: 04/20/18 05:13 04/20/18 05:13 Troponin/CKMB CK-MB (CK-2) 9.3 ng/mL (0-6.6) H* 04/15/18 10:22 Troponin I 0.056 ng/mL (< 0.028) H 04/15/18 17:21 - Assessment/Plan 1. Sustained ventricular tachycardia, monomorphic. -Slow and asymptomatic -without recurrence since 04/16 2. Chronic systolic heart failure with Nonischemic cardiomyopathy -EF 20-25% by echo 01/2017 3. ESRD on HD 4. Type 2 Diabetes mellitus -brittle Once again discussed risk, benefits, and alternatives of ICD. He declines ICD and opts for continued medical management. This is reasonable given his ESRD and risk for infection with device implant. Recommend continued therapy with beta blockers as tolerated and not intiating Amiodarone at this time.
--- NOTE | 2018-04-20 10:12 | PRG ---
DATE OF SERVICE: 04/20/2018 SUBJECTIVE: Mr. Fragoso is a 42-year-old black male with known history of ESRD. He was also seen by Cardiology. Due to his decreased EF a recommendation for AICD placement. The patient declines this . He wants to be medicated. Currently denies any chest pain or shortness of breath. His blood suga r control is actually improved. PHYSICAL EXAMINATION: VITAL SIGNS: Blood pressure is 118/80, heart rate 74, respiratory rate 18, temperature 98.5, pulse o x 95%. GENERAL: Awake, alert, comfortable, not in overt distress. SKIN: Adequate turgor. HEENT: He has pinkish conjunctivae, anicteric sclerae. NECK: No neck mass, no carotid bruits, no JVD. CHEST: No deformities. LUNGS: Clear breath sounds. HEART: Normal sinus rhythm. No murmur, no gallops or rubs. ABDOMEN: Globular, soft, nontender, no masses. EXTREMITIES: Status post left BKA. NEUROLOGIC: Awake, oriented in 3 spheres. Moving all extremities. No tremors, no asterixis, no santiago williams. He has decreased visual acuity. MEDICATIONS: 04/20/2018 - Reviewed. LABORATORY DATA: 04/20/2018 - White count 4.9, hemoglobin 11.3. Sodium 133, potassium 4.4, chloride 92, carbon dioxide 31, BUN 44, creatinine 7.69, glucose 154, calcium 8.2. ASSESSMENT AND PLAN: 1. End-stage renal disease, stable. We will continue current hemodialysis regimen of Wednesday, day, Wednesday. Again, fluid removal as tolerated. 2. Congestive heart failure/decreased ejection fraction - the patient has been recommended for an [facility] implantable cardioverter/defibrillator placement, but has declined. Please note, during this hospitalization, he was noted to have a short course of ventricular tachycardia. 3. Chronic anemia from end-stage renal disease - currently on Procrit 2000 units subcu 3 times a wee k - currently on hold due to the hemoglobin of 11.3. Overall, I agree with current management. Consider discharge today.
[2018-04-20] MEDS: HumaLOG 300 UNITS/3 ML VIAL SC SCH ×2 (11:45→17:15)
[2018-04-20] MEDS: Epoetin (ESRD) 20,000 UNITS/ML SC SCH (13:53)
[2018-04-20] MEDS: Montelukast Sodium 10 mg Tablet PO SCH (20:13)
[2018-04-20] MEDS: Rosuvastatin 10 MG TAB PO SCH (20:13)
[2018-04-21 08:41] VITALS: BP 139/81; TEMP 98.8
[2018-04-21] MEDS: Metoclopramide HCl 10 MG TAB PO SCH ×2 (09:02→13:03)
[2018-04-21] MEDS: Lisinopril 20 MG TAB PO SCH (09:03)
[2018-04-21] MEDS: Cinacalcet HCl 30 MG TAB PO SCH (09:03)
[2018-04-21] MEDS: hydrALAZINE 25 MG TAB PO SCH (09:04)
[2018-04-21] MEDS: Calcium Acetate 667 MG CAP PO SCH ×2 (09:04→13:03)
[2018-04-21] MEDS: Carvedilol 25 MG TAB PO SCH (09:04)
[2018-04-21] MEDS: Insulin Glargine 22 UNITS in Pre-Filled Syringe 1 EACH SC SCH (09:05)
[2018-04-21] MEDS: Sevelamer Carbonate 800 MG TAB PO SCH ×2 (09:05→13:03)
--- NOTE | 2018-04-21 09:43 | PRG ---
DATE OF SERVICE: 04/21/2018 SERVICE: Renal Medicine. SUBJECTIVE: Mr. Fragoso is a 42-year-old black male with end-stage renal disease. He was admitted f or CHF. He also had a run of ventricular tachycardia. He declined AICD placement, but would like to be treated medically. Cardiology will be following him up. He is planned to be discharged today. He underwent dialysis yesterday without any difficulty. He has no new complaints. No chest pain or shortness of breath. PHYSICAL EXAMINATION: VITAL SIGNS: Blood pressure 139/81, heart rate 76, respiratory rate 20, temperature 98.8, pulse ox 9 8%. GENERAL: Noted to be awake, alert, comfortable, not in distress. SKIN: Adequate turgor. HEENT: Pinkish conjunctivae, anicteric sclerae. NECK: No neck mass, no carotid bruits, no JVD. CHEST: No deformities. LUNGS: Clear breath sounds. HEART: Normal sinus rhythm. No murmur, no gallops, no rubs. ABDOMEN: Globular, soft, nontender, no masses. EXTREMITIES: No edema, no deformities. MEDICATIONS: Of 04/21/2018 was reviewed. LABORATORY DATA: Of 04/20/2018, white count 4.9, hemoglobin 11.3. Sodium 133, potassium 4.4, chlori de 92, carbon dioxide 31, BUN 44, creatinine 7.69, calcium 8.2. On 04/21/2018, glucose 158. ASSESSMENT AND PLAN: 1. End-stage renal disease, stable. Tolerating current hemodialysis regimen. No emergent dialysis today. Doing well. 2. Status post ventricular tachycardia - currently followed by Cardiology. The patient has declined AICD placement. 3. Chronic anemia - no indication for any Epogen at the present time with this patient. Agree with current management.
[2018-04-21] MEDS: HumaLOG 300 UNITS/3 ML VIAL SC SCH (13:03)
== END 2018-04-21 14:32 | disposition home or self-care (01) | DRG 637 ==
LOC: ERS 10:03 → 2NO 12:08 → OBSVTOIN 04-18 13:21
PROVIDERS: ADMIT Internal Medicine; ATTEND Internal Medicine
DX: E11.65 Type 2 diabetes mellitus with hyperglycemia (principal); N18.6 End stage renal disease; I47.2 Ventricular tachycardia; I13.0 Hypertensive heart and chronic kidney disease with heart failure and stage 1 through stage 4 chronic kidney disease, or unspecified chronic kidney disease; I43 Cardiomyopathy in diseases classified elsewhere; I50.22 Chronic systolic (congestive) heart failure; Z89.512 Acquired absence of left leg below knee; I73.9 Peripheral vascular disease, unspecified; H54.3 Unqualified visual loss, both eyes; I25.10 Atherosclerotic heart disease of native coronary artery without angina pectoris; Z79.4 Long term (current) use of insulin; Z79.899 Other long term (current) drug therapy; Z99.2 Dependence on renal dialysis; D64.9 Anemia, unspecified; K21.9 Gastro-esophageal reflux disease without esophagitis; E78.5 Hyperlipidemia, unspecified; E11.21 Type 2 diabetes mellitus with diabetic nephropathy
CPT/HCPCS: 36415; 36416; 71045; 80048; 80053; 82553; 83880; 84484; 85025; 87324; 87449; 90935; 93005; 93306; 93798; 94760; 96374; G0257; J1815; Q4081

== ENCOUNTER 2018-04-24 12:34 | Observation (INO) | payer MEDICARE, MEDICAID ==
[2018-04-24 13:18] LABS: #Eosinphils 0.3 thou/uL (0.0-0.7); #Lymphocytes 1.9 thou/uL (1.20-3.40); #Monocytes 0.7 thou/uL (0.11-0.59); #Neutrophils 2.5 thou/uL (1.40-6.50); %Basophils 0.8 % (0.0-1.0); %Eosinophils 5.3 % (0.0-10.0); %Monocytes 13.3 % (0.0-10.0); %Neutrophils 45.7 % (42.0-75.0); Hemoglobin 11.4 g/dL (14.0-18.0); Mean Corpuscular Hemoglobin 32.9 pg (27.0-31.0); Mean Corpuscular Volume 99.9 fL (78.0-98.0); Platelet Count 138 thou/uL (130-400); RBC Distribution Width 15.2 % (11.5-14.5); Red Blood Cell (RBC) Count 3.47 mill/uL (4.70-6.10); White Blood Cell (WBC) Count 5.5 thou/uL (4.8-10.8)
[2018-04-24 13:35] LABS: ALT (SGPT) 53 U/L (8-55); AST (SGOT) 69 U/L (5-34); Albumin 3.5 g/dL (3.5-5.0); Alkaline Phosphatase 187 U/L (40-150); Anion Gap 17 mmol/L (10-20); BUN (Urea Nitrogen) 79 mg/dL (8.9-20.6); Bilirubin, Total 0.8 mg/dL (0.2-1.2); CK (CPK) 397 U/L (30-200); Calc. Creatinine Clearance 0 mL/min (70-130); Calcium 8.8 mg/dL (7.8-10.44); Carbon Dioxide 29 mmol/L (22-29); Chloride 94 mmol/L (98-107); Estimated GFR-MDRD 8; Globulin 3.7 g/dL (2.4-3.5); Glucose 215 mg/dL (70-105); Lipase 60 U/L (8-78); Potassium 5.2 mmol/L (3.5-5.1); Protein, Total 7.2 g/dL (6.0-8.3); Sodium 135 mmol/L (136-145)
[2018-04-24 13:39] LABS: CKMB 4.5 ng/mL (0-6.6); Troponin I 0.046 ng/mL (< 0.028)
--- NOTE | 2018-04-24 14:10 | RAD ---
CHEST 1 VIEW: Date: 04/24/18 HISTORY: Chest pain. COMPARISON: Radiograph dated 04/15/18. FINDINGS: Heart size is enlarged. Mild pulmonary venous congestion. No pneumothorax. IMPRESSION: Cardiomegaly with mild pulmonary venous congestion. POS: [facility]
[2018-04-24 16:32] LABS: Troponin I 0.057 ng/mL (< 0.028)
[2018-04-24] MEDS ORDERED: Ondansetron ODT 4 MG TAB SL PRN (16:50)
[2018-04-24] MEDS ORDERED: Ondansetron PF 4 MG/2 ML Vial IVP PRN (16:50)
[2018-04-24 17:11] VITALS: BMI 30.9
[2018-04-24 19:12] LABS: Troponin I 0.038 ng/mL (< 0.028)
[2018-04-24] MEDS ORDERED: Dextrose 5% in Water 1,000 ML IV PRN (19:53)
[2018-04-24] MEDS ORDERED: Insulin Regular 300 UNITS/3 ML VIAL SC PRN (19:53)
[2018-04-24] MEDS ORDERED: Dextrose 50% Abboject 50 ML SYRINGE IVP PRN (19:53)
[2018-04-24] MEDS ORDERED: MAGNESIUM CITRATE 100 MG TABLET PO SCH (20:00)
[2018-04-24] MEDS ORDERED: ALPRAZolam 0.25 MG TAB PO PRN (20:02)
[2018-04-24] MEDS ORDERED: Docusate 100 MG CAP PO PRN (20:04)
[2018-04-24] MEDS ORDERED: Carvedilol 25 MG TAB PO SCH (20:30)
[2018-04-24] MEDS: hydrALAZINE 25 MG TAB PO SCH (20:50)
[2018-04-24] MEDS: Lisinopril 20 MG TAB PO SCH (20:50)
[2018-04-24] MEDS: Rosuvastatin 10 MG TAB PO SCH (20:51)
[2018-04-24] MEDS: Montelukast Sodium 10 mg Tablet PO SCH (20:51)
--- NOTE | 2018-04-25 01:51 | HP ---
DATE OF ADMISSION: 04/24/2018 REASON FOR ADMISSION AND CHIEF COMPLAINT: Chest pain. HISTORY OF PRESENT ILLNESS: Mr. Fragoso is a 42-year-old -[place] male with past medical history of severe cardiomyopathy, end-stage renal disease, diabetes who came because of chest pain which started yesterday evening, which is sharp in nature in the middle of the chest, nonradiating, not associated with diaphoresis, has nausea and vomiting. The patient called the EMS because the pain was not resolving. They gave the nitroglycerin which relieved the pain. The patient was brought to the emergency room for admission. He was recently discharged from the hospital after being admitted for uncontrolled diabetes mellitus. Currently, the patient is chest pain free. In view of the risk factors, patient is being admitted to rule out myocardial infarction. PAST MEDICAL HISTORY: 1. End-stage renal disease, on hemodialysis. 2. Insulin-dependent diabetes mellitus. 3. Hypertension. 4. Hyperlipidemia. 5. Peripheral vascular disease. 6. History of a nonsustained slow ventricular tachycardia present. PAST SURGICAL HISTORY: Status post BKA, left. CURRENT MEDICATIONS: The patient is on Xanax p.r.n. 0.25 mg, PhosLo t.i.d., Coreg 25 mg b.i.d., vitamin D of 2000 units daily, Sensipar 90 mg daily, docusate sodium daily, Procrit during dialysis days, hydralazine 50 mg t.i.d., Humalog insulin 6 units before meals, Levemir insulin 22 units daily, lisinopril 20 mg b.i.d., metoclopramide 5 mg daily, Singulair 10 mg daily, Lipitor 20 mg daily, Crestor 10 mg daily, sertraline 100 mg daily, Renvela 1600 mg t.i.d. ALLERGIES: No known drug allergies. FAMILY HISTORY: Nothing of interest. SOCIAL HISTORY: The patient lives with nephew. No history of smoking. No history of alcohol intake. REVIEW OF SYSTEMS: Unremarkable except for chest pain. PHYSICAL EXAMINATION: GENERAL: The patient is alert, awake, oriented x3. VITAL SIGNS: Temperature 98, pulse 78, respirations 20, blood pressure 116/58. HEENT: Head is normocephalic, atraumatic. Pupils equal and reactive to light. Nasopharynx is pink and moist. NECK: Supple. No JVD. LUNGS: Bilateral air entry present, no rales, no rhonchi. HEART: S1, S2 regular. ABDOMEN: Soft, no distention, no tenderness. No organomegaly. Bowel sounds present. RECTAL: Deferred. NEUROLOGIC: No focal deficit. LABORATORY AND X-RAY FINDINGS: CBC shows WBC 5, hemoglobin 11, hematocrit 34, platelets 138. Metabolic panel: Sodium 138, potassium 5, chloride 94, CO2 of 29, BUN 75, creatinine 9, glucose 250. CK-MB 4.5. Troponin I 0.046. BNP was 2747. EKG shows normal sinus rhythm, no acute ST-T wave changes seen. Chest x- ray negative. ASSESSMENT: 1. Chest pain, rule out myocardial infarction. 2. End-stage renal disease, on hemodialysis. 3. Hypertension. 4. Hypertensive cardiomyopathy. 5. Decreased LVF with EF of 20%. 6. Insulin-dependent diabetes mellitus. 7. Peripheral vascular disease. PLAN: 1. Vital signs q.4 hours. 2. Activity: As tolerated. 3. Allergies: NKDA. 4. Hep-Lock. 5. Aspirin daily. 6. Nitroglycerin p.r.n. 7. Accu-Chek a.c. and at bedtime. 8. Sliding scale mild with regular insulin. 9. Continue hemodialysis. 10. We will get a stress test. [facility]
[2018-04-25] MEDS ORDERED: Epoetin (ESRD) 20,000 UNITS/ML SC SCH (09:00)
--- NOTE | 2018-04-25 09:35 | PRG ---
DATE OF SERVICE: 04/25/2018 SUBJECTIVE: Mr. Fragoso is a 42-year-old black male with ESRD, cardiomyopathy and admitted for shawn st pain. He is now being ruled out for myocardial infarction. In addition, he underwent a cardiac s tress test today. We are now being consulted for his maintenance hemodialysis. The patient is sched uled for dialysis today. No other complaints. Chest pain is better. Denies any shortness of breath at the present time. PHYSICAL EXAMINATION: VITAL SIGNS: Blood pressure 104/67, heart rate 74, respiratory rate 18, temperature 97.4, pulse ox 9 6%. GENERAL: Noted to be awake, alert, comfortable, not in overt distress. SKIN: Adequate turgor. HEENT: Pinkish conjunctivae, anicteric sclerae. NECK: No neck mass, no carotid bruits, no JVD. CHEST: No deformities. LUNGS: Clear breath sounds, no wheezing, no crackles. HEART: Normal sinus rhythm. No murmur, no gallops, no rubs. ABDOMEN: Globular, soft, nontender, no masses. EXTREMITIES: No edema, no deformities. MEDICATIONS: 04/25/2018 - Reviewed. LABORATORY: 04/24/2018 - White count 5.5, hemoglobin 11.4. 04/25/2018 - Glucose 115. Troponin I 0.038. 04/24/2018 - Potassium 5.2, BUN 79, creatinine 9.03, alkaline phosphatase is 187. CK 397. Cardiac stress test pending. 04/24/2018 - Chest x-ray shows increased lung markings. ASSESSMENT AND PLAN: 1. End-stage renal disease, stable. We will max out fluid removal. Attempt 4 liter fluid removal w ith dialysis today. Continue Wednesday, Wednesday, Wednesday dialysis regimen. Again, review of the last Kt/V suggests he is adequately dialyzed with the current dialysis regimen. 2. Chest pain, being ruled out for myocardial infarction. The patient is status post cardiac stress test. 3. Cardiomyopathy - in the past the patient has declining AICD placement.
[2018-04-25] MEDS: Cinacalcet HCl 30 MG TAB PO SCH (10:17)
[2018-04-25] MEDS: Lisinopril 20 MG TAB PO SCH ×2 (10:17→20:03)
[2018-04-25] MEDS: Insulin Glargine 22 UNITS in Pre-Filled Syringe 1 EACH SC SCH (10:19)
[2018-04-25] MEDS: Metoclopramide HCl 10 MG TAB PO SCH ×3 (10:19→18:26)
[2018-04-25] MEDS: Calcium Acetate 667 MG CAP PO SCH ×3 (10:19→18:26)
[2018-04-25] MEDS: Sevelamer Carbonate 800 MG TAB PO SCH ×3 (10:20→18:27)
[2018-04-25] MEDS: hydrALAZINE 25 MG TAB PO SCH ×3 (14:17→20:06)
[2018-04-25] MEDS: HumaLOG 300 UNITS/3 ML VIAL SC SCH ×2 (14:17→17:31)
[2018-04-25] MEDS: Carvedilol 25 MG TAB PO SCH ×2 (14:18→18:26)
--- NOTE | 2018-04-25 15:44 | NM ---
NUCLEAR MEDICINE CARDIAC MYOCARDIAL PERFUSION SPECT EJECTION FRACTION STUDY WALL MOTION CINE: DATE: 04/25/2018. HISTORY: A 42-year-old male with chest pain. TECHNIQUE: Number of days: 1. Rest study: Tc99m sestamibi (Cardiolite) dose: 10.2 mCi. Pharmacologic stress: adenosine dose: 58.2 mg. Stress study: Tc99m sestamibi (Cardiolite) dose: 29.0 mCi. FINDINGS: CARDIAC (MYOCARDIAL PERFUSION) SPECT There is diffuse chamber dilation. Myocardial uptake is diffusely slightly heterogeneous. No defini te reversible perfusion defect is identified. EJECTION FRACTION STUDY EF = 26%. WALL MOTION CINE There is global hypokinesis. The inferior wall is especially hypokinetic. IMPRESSION: 1. Very low left ventricular ejection fraction of 26%. 2. No reversible ischemia identified. 3. Left ventricular chamber dilation. CHESTER Pacheco POS: [facility]
[2018-04-25] MEDS: Rosuvastatin 10 MG TAB PO SCH (20:03)
[2018-04-25] MEDS: Montelukast Sodium 10 mg Tablet PO SCH (20:06)
[2018-04-26 07:59] VITALS: BP 116/69; TEMP 97.4
--- NOTE | 2018-04-26 08:25 | PRG ---
DATE OF SERVICE: 04/26/2018 SUBJECTIVE: Mr. Fragoso is a 42-year-old black male with ESRD admitted for chest pain. He underwent a nuclear stress test. No active cardiac ischemia was noted, but the findings of a low EF 26% was n oted. This is an old finding. He was advised on AICD, but he has declined in the past. This mornin g, he is feeling better. No chest pain or shortness of breath. He underwent hemodialysis yesterday without any difficulty. PHYSICAL EXAMINATION: VITAL SIGNS: Blood pressure 116/69, heart rate 82, respiratory rate 18, temperature 97.4, O2 sat 94% . GENERAL: Awake, alert, comfortable, not in distress. SKIN: Adequate turgor. HEENT: Pinkish conjunctivae. Decreased visual acuity. NECK: No neck mass, no carotid bruits, no JVD. LUNGS: Clear breath sounds, no wheezing, no crackles. HEART: Normal sinus rhythm. No murmur, no gallops or rubs. ABDOMEN: Globular, soft, nontender, no masses. EXTREMITIES: No edema, no deformities. MEDICATIONS: 04/26/2018 - Reviewed. LABORATORY: 04/24/2018 - White count 5.5, hemoglobin 11.4. 04/26/2018 - Glucose 175. Cardiac stress test negative for active ischemia. ASSESSMENT AND PLAN: 1. Chest pain, resolved. No evidence of cardiac ischemia based on the cardiac stress test. 2. Congestive heart failure, stable. Removed several liters of fluid with dialysis yesterday. 3. End-stage renal disease, stable. We will continue current Wednesday, Wednesday, Wednesday hemodialysis . There is no indication for any emergent dialytic intervention with this patient.
[2018-04-26] MEDS: Sevelamer Carbonate 800 MG TAB PO SCH (08:31)
[2018-04-26] MEDS: Calcium Acetate 667 MG CAP PO SCH (08:31)
[2018-04-26] MEDS: hydrALAZINE 25 MG TAB PO SCH (08:32)
[2018-04-26] MEDS: Insulin Glargine 22 UNITS in Pre-Filled Syringe 1 EACH SC SCH (08:32)
[2018-04-26] MEDS: Lisinopril 20 MG TAB PO SCH (08:32)
[2018-04-26] MEDS: Carvedilol 25 MG TAB PO SCH (08:32)
[2018-04-26] MEDS: Metoclopramide HCl 10 MG TAB PO SCH (08:34)
[2018-04-26] MEDS: Cinacalcet HCl 30 MG TAB PO SCH (08:35)
--- NOTE | 2018-04-27 06:01 | DIS ---
DATE OF ADMISSION: 04/24/2018 DATE OF DISCHARGE: 04/26/2018 ADMITTING DIAGNOSES: 1. Chest pain, rule out myocardial infarction. 2. End-stage renal disease, on hemodialysis. 3. Hypertension. 4. Hypertensive cardiomyopathy. 5. Decreased left ventricular function, ejection 15%-20%. 6. Insulin-dependent diabetes mellitus. 7. Peripheral vascular disease. FINAL DIAGNOSES: 1. Chest pain. No evidence of acute myocardial infarction, negative Cardiolite stress test. 2. Nonischemic cardiomyopathy with ejection fraction of 20%. 3. End-stage renal disease, on hemodialysis. 4. Hypertension. 5. Insulin-dependent diabetes mellitus. 6. Peripheral vascular disease. BRIEF SUMMARY OF HOSPITAL COURSE: Mr. Fragoso is a 42-year-old, - [place] male admitted because of chest pain. The patient had atypical chest pain without any diaphoresis, nausea or vomiting. He is admitted to rule out myocardial infarction in view of his risk factors. He underwent a Cardiolite stress test and it was reported as negative for ischemia. He did show decreased left ventricular ejection fraction around 26%, but the patient has nonischemic cardiomyopathy with decreased LV function with EF of 20% on echo. The patient declined ICD placement in the last admission, even now he declines ICD placement. The patient did not have anymore chest pain while in the hospital and so he is being discharged back to home. At the time of discharge, he was stable. His vital signs were stable. Lungs were clear. Heart sounds regular. Abdomen is soft, nontender. Bowel sounds present. DISCHARGE MEDICATIONS: Include omeprazole 20 mg daily, magnesium citrate daily , vitamin D daily, Procrit during dialysis, PhosLo t.i.d., Sensipar 90 mg daily , lisinopril 20 mg b.i.d., metoclopramide 5 mg a.c. and at bedtime, Crestor 10 mg daily, Zoloft 100 mg daily, Renvela 1600 mg t.i.d., Coreg 25 b.i.d., hydralazine 50 t.i.d., Humalog insulin 6 units before each meal, Levemir insulin 20 units daily, aspirin 81 mg. DISCHARGE INSTRUCTIONS: The patient will continue with the dialysis and will come for followup in 2 weeks. [facility]PITALHasmu[facility]
== END 2018-04-26 09:08 | disposition home or self-care (01) ==
LOC: ERS 12:34 → 2SW 17:07
PROVIDERS: ADMIT Internal Medicine; ATTEND Internal Medicine
DX: R07.9 Chest pain, unspecified (principal); I13.2 Hypertensive heart and chronic kidney disease with heart failure and with stage 5 chronic kidney disease, or end stage renal disease; I50.9 Heart failure, unspecified; E11.22 Type 2 diabetes mellitus with diabetic chronic kidney disease; N18.6 End stage renal disease; I43 Cardiomyopathy in diseases classified elsewhere; E11.51 Type 2 diabetes mellitus with diabetic peripheral angiopathy without gangrene; Z99.2 Dependence on renal dialysis; Z79.4 Long term (current) use of insulin; Z79.899 Other long term (current) drug therapy
CPT/HCPCS: 71045; 78452; 80053; 82550; 82553; 82962 ×3; 83690; 83880; 84484 ×2; 85025; 93005; 93017; 96374; 99285; A9500; G0378 ×2; 36415; 36416; 90935; G0257; J0153; J2405; Q4081

== ENCOUNTER 2018-06-28 19:40 | Observation (INO) | payer MEDICARE, OTHER ==
[2018-06-28 20:44] LABS: #Basophils 0.1 thou/uL (0.0-0.2); #Eosinphils 0.2 thou/uL (0.0-0.7); #Monocytes 0.7 thou/uL (0.11-0.59); #Neutrophils 2.3 thou/uL (1.40-6.50); %Basophils 1.3 % (0.0-1.0); %Eosinophils 4.1 % (0.0-10.0); %Lymphocytes 37.3 % (21.0-51.0); %Monocytes 13.5 % (0.0-10.0); %Neutrophils 43.8 % (42.0-75.0); Hemoglobin 12.6 g/dL (14.0-18.0); Mean Corpuscular HGB CONC 32.4 g/dL (32.0-36.0); Mean Corpuscular Hemoglobin 31.4 pg (27.0-31.0); Mean Corpuscular Volume 96.9 fL (78.0-98.0); Mean Platelet Volume 9.4 fL (7.4-10.4); Platelet Count 142 thou/uL (130-400); RBC Distribution Width 17.3 % (11.5-14.5); Red Blood Cell (RBC) Count 4.03 mill/uL (4.70-6.10); White Blood Cell (WBC) Count 5.3 thou/uL (4.8-10.8)
[2018-06-28 21:08] LABS: ALT (SGPT) 29 U/L (8-55); AST (SGOT) 38 U/L (5-34); Albumin 3.9 g/dL (3.5-5.0); Alkaline Phosphatase 182 U/L (40-150); Anion Gap 27 mmol/L (10-20); BUN (Urea Nitrogen) 81 mg/dL (8.9-20.6); Bilirubin, Total 1.1 mg/dL (0.2-1.2); Calc. Creatinine Clearance 0 mL/min (70-130); Calcium 7.6 mg/dL (7.8-10.44); Carbon Dioxide 22 mmol/L (22-29); Chloride 94 mmol/L (98-107); Estimated GFR-MDRD 6; Globulin 4.1 g/dL (2.4-3.5); Glucose 73 mg/dL (70-105); Sodium 135 mmol/L (136-145)
--- NOTE | 2018-06-28 21:08 | RAD ---
RADIOGRAPH CHEST 1 VIEW: Date: 06/28/18 Time: 7:33 p.m. HISTORY: 42-year-old male with cough. COMPARISON: 06/24/17. FINDINGS: There is cardiomegaly. There is mild haziness of the right mid and lower lung zones. No consolidation identified. No pneumothorax. No effacement of the lateral costophrenic angles. No interval change. IMPRESSION: 1. Cardiomegaly. 2. Nonspecific mild haziness of right lung. CHESTER [] POS: [facility]
[2018-06-28] MEDS ORDERED: Metoclopramide HCl 10 MG/2 ML VIAL ONE (21:16)
[2018-06-28 21:18] LABS: Potassium 7.7 mmol/L (3.5-5.1)
[2018-06-28 21:47] LABS: Potassium 7.5 mmol/L (3.5-5.1)
[2018-06-28] MEDS ORDERED: Calcium Gluc 4.6 MEQ/10 ML (100 MG/ML) ONE (21:58)
[2018-06-29 03:55] LABS: HBSAg Index 0.19 S/CO (0-0.99); Hep B Surf Ag Non-Reactive S/CO (NonReactive)
[2018-06-29 08:33] LABS: Potassium 4.6 mmol/L (3.5-5.1)
--- NOTE | 2018-06-29 10:16 | CON ---
DATE OF CONSULTATION: RENAL MEDICINE HISTORY OF PRESENT ILLNESS: Mr. Fragoso is a 42-year-old black male, who was admitted for persistent nausea and vomiting as well as diarrhea. This morning, he is feeling a little better. In addition, due to the initial evaluation, he was found to be severely hyperkalemic and for that reason, we did an emergent dialysis. He underwent a 2-hour dialysis with fluid removal about 2 L. No new complaints today. He is feeling better. REVIEW OF SYSTEMS: No chest pain. Positive for diarrhea and nausea. Appetite is now fair. No chest pain or shortness of breath. No fever or chills. No gross hematuria. No dysuria. No abdominal pain. No syncopal episode. No headache. No sore throat. HOME MEDICATIONS: Included the following; 1. Hydralazine 50 mg p.o. t.i.d. 2. Renvela 800 mg two tablets t.i.d. with meals. 3. Sertraline 100 mg at bedtime. 4. Crestor 10 mg tablet at bedtime. 5. Prilosec 20 mg daily. 6. Singulair 10 mg q.p.m. 7. Reglan 5 mg before meals. 8. Magnesium citrate 50 mg tablet p.r.n. 9. Lisinopril 20 mg p.o. b.i.d. 10. Levemir 22 units subcu daily. 11. Insulin lispro 6 units subcu before meals. 12. Sensipar 90 mg daily. 13. Carvedilol 25 mg p.o. t.i.d. 14. Aspirin 81 mg daily. 15. Xanax 0.25 mg daily-as needed. PAST MEDICAL HISTORY: Includes the following; 1. End-stage renal disease from diabetic nephropathy-on maintenance hemodialysis, Wednesday, Wednesday, and Wednesday. 2. Type 2 diabetes mellitus. 3. Diabetic retinopathy. 4. Chronic pain. 5. Hyperlipidemia. 6. Status post CHF. 7. Diabetic gastroparesis. 8. COPD. 9. Peripheral vascular disease. 10. Chronic blindness. 11. Hypertension. PAST SURGICAL HISTORY: Status post cuffed dialysis catheter placement, status post left BKA, status post AV fistula placement, and status post skin graft. SOCIAL HISTORY: The patient lives with his sister in [place]. He is single. No children. Retired employee from a feed store. No alcohol intake. No smoking. No drug abuse. Status post blood transfusion. Education is high school. Sedentary lifestyle. ALLERGIES: NONE. TRAUMA: None. IMMUNIZATION: Up-to-date. HOSPITALIZATIONS: Please see past medical history. FAMILY HISTORY: No family history of ESRD. PHYSICAL EXAMINATION: VITAL SIGNS: Blood pressure 142/102, respiratory rate 14, heart rate 86, and pulse ox 98%. GENERAL: The patient is awake, supine, comfortable, not in distress. SKIN: Adequate turgor. HEENT: He has pinkish conjunctivae. Anicteric sclerae. No neck mass. No carotid bruits. No JVD. Decreased visual acuity. LUNGS: Clear breath sounds. No wheezing. No crackles. HEART: Normal sinus rhythm. No murmur. No gallops. No rubs. ABDOMEN: Globular. Soft and nontender. No masses. EXTREMITIES: No edema. No deformities. Status post leg amputation. NEUROLOGIC: Awake and oriented to 3 spheres. Decreased visual acuity. DIAGNOSTIC DATA: Chest x-ray, no CHF. No infiltrates. LABORATORY DATA: On June 28, 2018; white count 5.3, hemoglobin 12.6. Sodium 135, potassium 7.7, chloride 94, carbon dioxide 22, BUN 81, creatinine 12.04, calcium 7.6, AST 38, and ALT 28. On June 29, 2018; potassium is noted at 4.6. ASSESSMENT AND PLAN: 1. Hyperkalemia, much improved with hemodialysis. We used 1.0 potassium bath with this patient. 2. End-stage renal disease, stable. The patient recently dialyzed with fluid removal-about 2 L in using a 1.0 potassium bath. We will continue Wednesday, Wednesday, and Wednesday hemodialysis regimen. I feel that we can wait till next Wednesday for his next dialysis session. 3. Diarrhea-transient in nature much improved this morning. His nausea and vomiting are also dramatically improved. He is tolerating his p.o. breakfast at the present time. Overall, agree with current management. Job ID: [id number]
--- NOTE | 2018-06-30 09:08 | HP ---
CHIEF COMPLAINT: Nausea, vomiting, diarrhea. HISTORY OF PRESENT ILLNESS: Mr. Fragoso is a 42-year-old male who came because of nausea and vomiting. The patient has a past medical history end-stage renal disease, hypertension, diabetes, and peripheral vascular disease. The patient's recent symptoms are of 1 day duration, vomited 3 times, diarrhea with watery stool x3. No fever. No headaches. No dizziness. No chest pain. No shortness of breath. The patient goes for dialysis 3 times a day. The patient decided to come to the hospital because of these symptoms. In the ER, the patient was evaluated, found to have severe hyperkalemia. The patient received calcium gluconate IV as well as normal saline, received Reglan for nausea and vomiting, and blood pressure was elevated, received a dose of labetalol. The patient currently has no nausea, vomiting. PAST MEDICAL HISTORY: 1. End-stage renal disease. 2. Hypertension. 3. Hyperlipidemia. 4. Peripheral vascular disease. 5. Diabetes mellitus. 6. History of non-sustained ventricular tachycardia. PAST SURGICAL HISTORY: Status post BKA, left. CURRENT MEDICATIONS: The patient is on: 1. Coreg 25 b.i.d. 2. Vitamin D daily 2000 units. 3. Sensipar 90 mg daily. 4. Procrit weekly. 5. Hydralazine 50 t.i.d. 6. Humalog insulin 60 units before meals. 7. Levemir insulin 20 units daily. 8. Lisinopril 20 mg b.i.d. 9. Reglan 5 mg daily. 10. Singulair 10 mg daily. 11. Sertraline 100 mg daily. 12. Renvela 10 mg t.i.d. 13. The patient is on Crestor 10 mg daily. ALLERGIES: NKDA. FAMILY HISTORY: Nothing contributory. SOCIAL HISTORY: The patient lives with family. No history of smoking. No history of alcohol. REVIEW OF SYSTEMS: Unremarkable except for nausea, vomiting, and diarrhea. PHYSICAL EXAMINATION GENERAL: The patient is alert, awake, and oriented x3. VITAL SIGNS: Temperature 98, pulse 90, respirations 20, blood pressure 150/112. HEENT: Head is normal, atraumatic. Pupils equal, round, reactive. Nasopharynx is pale and dry. Hard and soft palate, no lesions. SKIN: Turgor decreased. NECK: Supple. No JVD. LUNGS: Bilateral air entry. No rales, no rhonchi. HEART: S1 and S2, regular. ABDOMEN: Soft. No distention. No tenderness. Normal bowel sounds. RECTAL: Deferred. CENTRAL NERVOUS SYSTEM: No focal deficits. LAB: CBC shows WBC of 5.3, hemoglobin 12, hematocrit 39, platelets 148. Metabolic panel: Sodium 135, potassium 7.7, chloride 94, CO2 20, BUN 81, creatinine 12, glucose is 73. Toxicology screen, B-Hydoxybutrate 0.59. Chest x-ray showed cardiomegaly, otherwise no acute changes. EKG shows normal sinus rhythm, no acute ST changes seen. ASSESSMENT: 1. Severe hyperkalemia. 2. Nausea, vomiting, diarrhea. 3. Diabetes mellitus. 4. Hypertension. 5. End-stage renal disease. 6. Peripheral vascular disease. PLAN: 1. Vital signs q.4. 2. Activity: As tolerated. 3. Allergies: NKDA. 4. Renal diet and diabetic diet. 5. Repeat KCl. 6. Emergency dialysis. Job ID: [id number]
[2018-06-30] MEDS ORDERED: Heparin 10,000 UNITS/ 10 ML VIAL ONE ×2 (14:05)
--- NOTE | 2018-07-02 10:50 | EKG ---
Test Reason : HYPERKALEMIA Blood Pressure : / mmHG Vent. Rate : 086 BPM Atrial Rate : 086 BPM P-R Int : 226 ms QRS Dur : 116 ms QT Int : 456 ms P-R-T Axes : 061 012 062 degrees QTc Int : 545 ms Sinus rhythm with 1st degree A-V block Possible Left atrial enlargement Nonspecific ST and T wave abnormality Prolonged QT Abnormal ECG Confirmed by ESTHER ZEPEDA DO ([id number]), index editor ASHLI LIPSCOMB ([id number]) on 07/02/2018 10:49:56 AM Referred By: Confirmed By:ESTHER ZEPEDA DO
--- NOTE | 2018-07-05 09:30 | DIS ---
DATE OF ADMISSION: 06/28/2018 DATE OF DISCHARGE: 06/29/2018 ADMITTING DIAGNOSIS: 1. Severe hyperkalemia. 2. Nausea, vomiting, diarrhea. 3. Diabetes mellitus. 4. Hypertension. 5. End-stage renal disease. 6. Peripheral vascular disease. FINAL DIAGNOSES: 1. Severe hyperkalemia, corrected. 2. Nausea and vomiting, improved. 3. Diabetes mellitus. 4. Hypertension. 5. End-stage renal disease. 6. Peripheral vascular disease. BRIEF SUMMARY OF HOSPITAL COURSE: Mr. Fragoso is a 42-year-old male with past medical history of diabetes, hypertension, end-stage renal disease, admitted because of nausea and vomiting. The patient was found to have hyperkalemia with a potassium of 7.7 on admission. The patient was given dialysis as treatment for hyperkalemia. His potassium came down initially to 7.5, then to 4.6. The patient's nausea and vomiting also resolved. The patient is tolerating diet very well. He did not have any chest pain or shortness of breath. No abdominal pain. No headache. In view of improvement, the patient was discharged. At the time of discharge, he was stable. Vital signs were stable. Lungs are clear. Heart sounds regular. Abdomen is soft, nontender. Bowel sounds present. DISCHARGE MEDICATIONS: Include; 1. Lisinopril 20 mg b.i.d. 2. Sensipar 90 mg daily. 3. PhosLo t.i.d. 4. Reglan 5 mg daily. 5. Singulair 10 mg daily. 6. Crestor 10 mg at bedtime. 7. Zoloft 100 mg daily. 8. Renvela 1600 mg t.i.d. 9. Coreg 25 mg b.i.d. 10. Hydralazine 50 t.i.d. 11. Humalog insulin 6 units before each meal. 12. Levemir insulin 22 units daily. 13. Aspirin 81 mg daily. 14. Protonix 40 mg daily. The patient will continue hemodialysis 3 times a week and also follow up in 2 weeks. Job ID: [id number] [facility]
--- NOTE | 2018-07-11 08:22 | PRG ---
DATE OF SERVICE: 07/11/2018 SUBJECTIVE: Mr. Fragoso is a 42-year-old black male with ESRD and admitted for diarrhea. During the initial evaluation, he was also developed hypoglycemia. We are checking blood sugar every 2 hours. We are being consulted for his maintenance hemodialysis. I have scheduled him for his regular dialysis today. No other complaints today. OBJECTIVE: VITAL SIGNS: Blood pressure is noted at 161/74, heart rate 85, respiratory rate 16, temperature 98.4, pulse ox 99%. GENERAL: Noted to be awake, alert, comfortable, not in distress. SKIN: Adequate turgor. HEENT: Pinkish conjunctivae. Anicteric sclerae. Decreased visual acuity. NECK: No neck mass. No carotid bruits. No JVD. LUNGS: Clear breath sounds. HEART: Normal sinus rhythm. No murmurs, no gallops, no rubs. ABDOMEN: Globular, soft, nontender. No masses. EXTREMITIES: No edema. No deformities. MEDICATIONS: Medications of July 11, 2018 reviewed. LABORATORY DATA: Laboratories of July 10, 2018, white count 4, hemoglobin 11.2. Sodium is 140, potassium is 4.3, chloride is 101, glucose is 140. ASSESSMENT AND PLAN: 1. End-stage renal disease, stable. We will continue current maintenance hemodialysis. The patient is scheduled for his regular 4-hour dialysis today. Fluid removal only as tolerated. 2. Hypoglycemia. Adjustment of insulin regimen. P.r.n. glucose measurements-every 2 hours. 3. Anemia. No indication for any Epogen. Job ID: [id number]
== END 2018-06-29 19:01 | disposition home or self-care (01) ==
LOC: ERS 19:40 → ERHOLD 22:11
PROVIDERS: ADMIT Internal Medicine; ATTEND Internal Medicine
DX: E87.5 Hyperkalemia (principal); R11.2 Nausea with vomiting, unspecified; I12.0 Hypertensive chronic kidney disease with stage 5 chronic kidney disease or end stage renal disease; E11.22 Type 2 diabetes mellitus with diabetic chronic kidney disease; N18.6 End stage renal disease; D63.1 Anemia in chronic kidney disease; E11.51 Type 2 diabetes mellitus with diabetic peripheral angiopathy without gangrene; E78.5 Hyperlipidemia, unspecified; E11.21 Type 2 diabetes mellitus with diabetic nephropathy; E11.43 Type 2 diabetes mellitus with diabetic autonomic (poly)neuropathy; K31.84 Gastroparesis; J44.9 Chronic obstructive pulmonary disease, unspecified; E11.649 Type 2 diabetes mellitus with hypoglycemia without coma; R19.7 Diarrhea, unspecified; K21.9 Gastro-esophageal reflux disease without esophagitis; H54.8 Legal blindness, as defined in USA; Z79.4 Long term (current) use of insulin; Z79.82 Long term (current) use of aspirin; Z79.899 Other long term (current) drug therapy; Z89.512 Acquired absence of left leg below knee; Z99.2 Dependence on renal dialysis
CPT/HCPCS: 71045; 80053; 82010; 84132 ×2; 84484; 85025; 87340; 87804 ×2; 93005; 94760; 96361; 96374; 96375; 99285; G0378; 36415; 90935; G0257; J1644; J2765; J3490

== ENCOUNTER 2018-07-10 17:28 | Inpatient (IN) | payer MEDICARE, MEDICAID ==
[2018-07-10] MEDS ORDERED: Dextrose 50% Abboject 50 ML SYRINGE ONE ×3 (17:37→20:14)
[2018-07-10 18:05] LABS: Base Excess-Venous 5.8 mmol/L (0 (+/- 2.5)); Bicarbonate (HCO3v) 31.9 mmol/L (22.0-29.0); CO2 Tension (PvCO2) 51.8 mmHg (41.0-51.0); Calcium, Ionized 1.03 mmol/L (1.12-1.32); Hemoglobin - Calc 12.7 g/dL (12.0-18.0); Lactate 0.31 mmol/L (0.50-2.20); O2 Tension (PvO2) 51.6 mmHg (35.0-45.0); Potassium 4.3 mmol/L (3.4-4.7); T. Carbon Dioxide 33.5 mmol/L (1.0-85.0); pH (Venous) 7.397 (7.35-7.45); vO2 Saturation-calc 85.3 % (94-98)
[2018-07-10 18:52] LABS: #Eosinphils 0.1 thou/uL (0.0-0.7); #Lymphocytes 0.7 thou/uL (1.20-3.40); #Monocytes 0.3 thou/uL (0.11-0.59); #Neutrophils 2.8 thou/uL (1.40-6.50); %Basophils 0.5 % (0.0-1.0); %Eosinophils 2.5 % (0.0-10.0); %Lymphocytes 18.7 % (21.0-51.0); %Monocytes 7.1 % (0.0-10.0); %Neutrophils 71.2 % (42.0-75.0); Hemoglobin 11.2 g/dL (14.0-18.0); Mean Corpuscular HGB CONC 31.3 g/dL (32.0-36.0); Mean Corpuscular Hemoglobin 31.5 pg (27.0-31.0); Mean Platelet Volume 8.8 fL (7.4-10.4); Platelet Count 94 thou/uL (130-400); RBC Distribution Width 17.1 % (11.5-14.5); Red Blood Cell (RBC) Count 3.56 mill/uL (4.70-6.10)
[2018-07-10 19:06] LABS: Anisocytosis SLIGHT = 6-15 cells (100X) (0-5/hpf); MDiff Complete? YES; Macrocytosis SLIGHT = 6-15 cells (100X) (0-5/hpf); Ovalocytes SLIGHT = 2-5 cells (100X) (0-1/hpf); Platelet Morphology Comment Appears Decreased; Polychromasia SLIGHT = 2-3 cells (100X) (0-2/hpf); Tear Drops SLIGHT = 2-5 cells (100X) (0-1/hpf)
[2018-07-10 19:07] LABS: ALT (SGPT) 18 U/L (8-55); AST (SGOT) 22 U/L (5-34); Albumin 3.5 g/dL (3.5-5.0); Alkaline Phosphatase 118 U/L (40-150); Anion Gap 18 mmol/L (10-20); BUN (Urea Nitrogen) 71 mg/dL (8.9-20.6); Calc. Creatinine Clearance 0 mL/min (70-130); Calcium 8.4 mg/dL (7.8-10.44); Carbon Dioxide 26 mmol/L (22-29); Chloride 99 mmol/L (98-107); Estimated GFR-MDRD 7; Globulin 3.6 g/dL (2.4-3.5); Glucose 170 mg/dL (70-105); Potassium 4.3 mmol/L (3.5-5.1); Protein, Total 7.1 g/dL (6.0-8.3); Sodium 139 mmol/L (136-145)
[2018-07-10 19:18] LABS: INR-International Normal Ratio 1.4; Prothrombin Time 17.2 SEC (12.0-14.7)
[2018-07-10 19:19] LABS: PTT 37.1 SEC (22.9-36.1)
[2018-07-10] MEDS ORDERED: Piperacillin/Tazobactam 4.5 GM VIAL ONE (19:29)
[2018-07-10 19:47] LABS: CKMB 8.5 ng/mL (0-6.6)
--- NOTE | 2018-07-10 21:11 | RAD ---
RADIOGRAPH CHEST 1 VIEW: Date: 07-10-18 Time: 5:50 p.m. HISTORY: 42-year-old male with dyspnea. Found unresponsive and hypoglycemic. COMPARISON: 06-28-18 FINDINGS: This is a supine image which is insensitive for pneumothorax detection. There is a vertically oriente d central vascular catheter descending from the right neck, with distal tip overlying the right media stinum, presumably at the superior vena cava. There is severe cardiomegaly, which appears worse than on the prior study. There are diffuse bilateral centrally-dominant mixed interstitial and alveolar in filtrates, right worse than left. Lateral costophrenic angles are sharp. IMPRESSION: 1. Severe cardiomegaly. 2. Bilateral interstitial and alveolar infiltrates, right worse than left. This is probably pulmonary edema, but a superimposed pneumonia is a possibility. 3. Introduction of right sided central vascular catheter. CHESTER POS: JIN
[2018-07-10] MEDS ORDERED: Dexamethasone 10 MG/ML VIAL ONE (23:52)
[2018-07-11] MEDS ORDERED: Mag-Al 1200 mg/1200 mg/30 ML UDCUP ONE (00:51)
[2018-07-11] MEDS ORDERED: Lidocaine Viscous Sol 2% 15 ml UD Cup ONE (00:51)
[2018-07-11] MEDS ORDERED: Dextrose 50% Abboject 50 ML SYRINGE SLOW IVP PRN (01:43)
[2018-07-11] MEDS ORDERED: Dextrose 10% in Water 1,000 ML IV SCH (01:45)
[2018-07-11] MEDS ORDERED: Piperacillin/Tazobactam 4.5 GM in Sodium Chloride 0.9% 100 ML IVPB SCH (02:00)
[2018-07-11 02:06] VITALS: BMI 31.7
[2018-07-11] MEDS ORDERED: HumaLOG 300 UNITS/3 ML VIAL SC PRN (09:37)
[2018-07-11] MEDS ORDERED: Dextrose 5% in Water 1,000 ML IV PRN (09:37)
[2018-07-11] MEDS ORDERED: Docusate 100 MG CAP PO PRN (09:44)
[2018-07-11] MEDS ORDERED: MAGNESIUM CITRATE 100 MG PO SCH (09:45)
[2018-07-11] MEDS ORDERED: ALPRAZolam 0.25 MG TAB PO PRN (09:46)
[2018-07-11] MEDS: Calcium Acetate 667 MG CAP PO SCH ×2 (12:33→19:02)
[2018-07-11] MEDS: Metoclopramide HCl 10 MG TAB PO SCH ×2 (12:33→17:03)
[2018-07-11] MEDS: Sevelamer Carbonate 800 MG TAB PO SCH ×2 (12:33→17:03)
[2018-07-11] MEDS ORDERED: Insulin Glargine 12 UNITS in Pre-Filled Syringe 1 EACH SC SCH (15:00)
[2018-07-11] MEDS: Epoetin (ESRD) 20,000 UNITS/ML SC SCH (17:28)
[2018-07-11] MEDS: hydrALAZINE 25 MG TAB PO SCH ×2 (17:29→20:43)
[2018-07-11] MEDS: Lisinopril 20 MG TAB PO SCH (20:43)
[2018-07-11] MEDS: Rosuvastatin 10 MG TAB PO SCH (20:44)
[2018-07-11] MEDS: Carvedilol 25 MG TAB PO SCH (20:44)
[2018-07-11] MEDS: Montelukast Sodium 10 mg Tablet PO SCH (20:44)
--- NOTE | 2018-07-11 20:57 | CON ---
DATE OF CONSULTATION: 07/11/2018 SERVICE: Pulmonary Medicine. REASON FOR CONSULTATION: [facility] patient. HISTORY OF PRESENT ILLNESS: The patient is a 42-year-old male with past medical history significant for horrendous type 2 diabetes mellitus with multiple complications associated with this disease process. He is in his usual state of health, when he started having low blood sugars that were being corrected very easily. As such, he was sent to the emergency department. He was tucked in the [facility], but never required any significant dextrose drips. We held his insulin and his blood sugars overnight have responded very nicely. He denies any current fevers, chills, nausea, vomiting, cough, sputum production, shortness of breath, diarrhea, chest discomfort, belly discomfort. His appetite is good. Otherwise , he does not feel like he has any acute infectious process. PAST MEDICAL HISTORY: 1. Type 2 diabetes mellitus, horrendous. 2. Peripheral vascular disease. 3. End-stage renal disease. 4. Blindness. 5. Chronic systolic and diastolic heart failure. 6. Dyslipidemia. 7. Hypertension. 8. History of nonsustained ventricular tachycardia. PAST SURGICAL HISTORY: Below-knee amputation, left. ALLERGIES: NO KNOWN DRUG ALLERGIES. MEDICATIONS: List of his inpatient and outpatient medications was reviewed. I have added back some long-acting insulin. FAMILY HISTORY: Noncontributory. SOCIAL HISTORY: Negative for alcohol, tobacco, or illicit drug use. He has no exposure to chemicals, dust, asbestos, or tuberculosis. REVIEW OF SYSTEMS: General, head ears, eyes, nose, throat, cardiovascular, respiratory, GI, , musculoskeletal, neurologic, and skin are negative except as mentioned in the HPI. PHYSICAL EXAMINATION: VITAL SIGNS: Afebrile with a T-max of 99.4, pulse 84, blood pressure 138/98, respirations 19, and saturation 100% on 2 L nasal cannula. GENERAL: The patient is awake and alert, in no apparent distress. LUNGS: Decent air entry. I do not appreciate rhonchi, wheezing, or crackles. There is no prolonged expiratory phase. HEART: Normal rate, regular. ABDOMEN: Soft, nontender, and nondistended. Bowel sounds are positive. MUSCULOSKELETAL: No cyanosis or clubbing. There is no pitting in the bilateral lower extremities. Left lower extremity is surgically absent. : No [place] catheter. NEUROLOGIC: Nonfocal. LABORATORY DATA: WBC 4.0, hemoglobin 11.2, platelets 94,000, and slightly reduced. INR 1.4. PH 7.40, pCO2 of 52, PO2 of 52 on a VBG. Blood sugars range from 71 up to 297, more recently. This is continuing to trend upward. Creatinine 9.31. Basic metabolic profile is otherwise unremarkable. Ionized calcium 1.03, lactate is low. BNP 3200, troponin 0.03, CK 506. Liver function studies are unremarkable. ASSESSMENT: 1. Type 2 diabetes mellitus. 2. Hyponatremia, iatrogenic. 3. Chronic systolic and diastolic heart failure. 4. End-stage renal disease. DISCUSSION AND PLAN: From my perspective, the patient is stable for transition out of the IMCU to the Medical Unit. His low sugars have essentially resolved. We will continue to monitor for signs of sepsis, but nothing currently is suggestive of an acute infectious profile. Pulmonary Critical Care will continue to follow along for the time being but from my perspective, he is stable for transition to the floor. 70 minutes have been devoted to this patient in various activities. I personally reviewed all imaging studies and laboratory data noted within this document. For fifty percent of this time, I was interacting with the patient at the bedside or coordinating care with the care team. For the remainder of the time I was immediately available to the patient in the hospital unit. Job ID: [id number] [facility]
[2018-07-12] MEDS ORDERED: Insulin Regular 300 UNITS/3 ML VIAL SC SCH (04:45)
--- NOTE | 2018-07-12 07:41 | HP ---
CHIEF COMPLAINT: Symptomatic hypoglycemia and hypothermia. HISTORY OF PRESENT ILLNESS: Mr. Fragoso is a 42-year-old male with past medical history of insulin-dependent diabetes mellitus and end-stage renal disease, who was brought in because of the low blood sugars. The patient gets regular insulin premeal as well as Levemir insulin. His insulin is given by the [employer]. The patient states that he has been eating normally. He was found to have altered mental status, so EMS was called in. The patient was not responsive per EMS. Blood sugar was 25. He was given 250 mL of D10. The patient woke up and has been alert and awake since then. The patient denied any fall. The patient goes for 3 times a week dialysis. He did not have any fever, nausea, or vomiting. No headache. No dizziness. No chest pain. No shortness of breath. No cough. In the ER, the patient was evaluated and found to be hypoglycemic as well as hypothermic. Initial temperature was 88. Today's pulse and blood pressure were normal. The patient was alert and awake in the ER. His pulse was actually bradycardic and heart rate was around 51, so the patient received D50 to bring up the blood sugar. He was also given an IV fluid bolus of 500 mL of normal saline. He received a total of D50 x3 doses while he was in the ER. ER physician also gave him a dose of vancomycin and Zosyn. It was thought that he may have sepsis because of his hypothermia and he was on Camron Huggers to increase temperature. By the time he was transferred to the floor, his temperature had improved to 98 and his Camron Huggers were removed. The patient is admitted for further management in view of that he is still hypoglycemic. PAST MEDICAL HISTORY: 1. End-stage renal disease, on hemodialysis 3 times a week. 2. Hypertension. 3. Diabetes mellitus, insulin dependent. 4. Peripheral vascular disease. 5. History of nonsustained ventricular tachycardia. PAST SURGICAL HISTORY: Status post BKA, left. CURRENT MEDICATIONS: The patient is on, 1. Coreg 25 b.i.d. 2. Vitamin D 2000 units daily. 3. Sensipar 90 mg daily. 4. Procrit weekly. 5. Hydralazine 50 t.i.d. 6. Humalog insulin 60 units before each meal. 7. Levemir insulin 20 units daily. 8. Lisinopril 20 mg b.i.d. 9. Reglan 5 mg once a day. 10. Singulair 10 mg daily. 11. Sertraline 100 mg daily. 12. Renvela 1600 mg t.i.d. 13. Crestor 10 mg daily. 14. Aspirin 81 mg daily. ALLERGIES: NKDA. FAMILY HISTORY: Nothing contributory. SOCIAL HISTORY: pt lives with nephew. REVIEW OF SYSTEMS: CARDIOVASCULAR: No chest pain or shortness of breath. RESPIRATORY: No fever or cough. GASTROINTESTINAL: No nausea or vomiting. No abdominal pain. CENTRAL NERVOUS SYSTEM: No headache. No dizziness. PHYSICAL EXAMINATION: GENERAL: The patient is alert, awake, and oriented x3. VITAL SIGNS: Temperature 98, pulse 80, respirations 20, and blood pressure 140/ 60. HEENT: Head is normal and atraumatic. Pupils are equal, round, and reactive. Nasopharynx is pale and dry. Hard and soft palate, no lesions. SKIN: Turgor decreased. NECK: Supple. No JVD. LUNGS: Breath sounds diminished. no rales, no rhonchi. HEART: S1 and S2, regular. ABDOMEN: Soft, no rigidity, no tenderness. Bowel sounds heard. CENTRAL NERVOUS SYSTEM: No focal deficits. LABORATORY DATA: CBC shows WBC 4, hemoglobin 11, hematocrit 35, platelets 94. Metabolic panel, sodium 140, potassium 4.3, chloride 103, CO2 of 26, BUN 71, creatinine 9.4, and glucose 170. BNP 3250. CK-MB 8.5. Troponin I 0.57 and prothrombin time 17. INR 1.1. ABG showed pH 7.39, pCO2 of 58, and pO2 of 51. Chest x-ray, mild vascular congestion. EKG shows sinus bradycardia no acute changes sen. ASSESSMENT: 1. Symptomatic severe hypoglycemia, improving. 2. Sinus bradycardia. 3. Severe hypothermia, improved. 4. End-stage renal disease, on hemodialysis. 5. Diabetes mellitus, insulin dependent. 6. Peripheral vascular disease. PLAN: 1. Vital signs q.4 hours. 2. Activity: As tolerated. 3. Hep-Lock. 4. Accu-Cheks q.2 hours. 5. Hypoglycemia protocol. 6. Nephrology consult for hemodialysis. 7. List his home medications. 8. The patient possibly had hypoglycemia secondary to excessive doses of insulin most likely. Job ID: [id number] [facility]
[2018-07-12] MEDS: Sevelamer Carbonate 800 MG TAB PO SCH ×3 (08:24→16:42)
[2018-07-12] MEDS: Lisinopril 20 MG TAB PO SCH ×2 (08:24→21:03)
[2018-07-12] MEDS: Metoclopramide HCl 10 MG TAB PO SCH ×3 (08:25→16:42)
[2018-07-12] MEDS: Carvedilol 25 MG TAB PO SCH ×2 (08:25→21:02)
[2018-07-12] MEDS: Cinacalcet HCl 30 MG TAB PO SCH (08:25)
[2018-07-12] MEDS: Calcium Acetate 667 MG CAP PO SCH ×3 (08:25→16:42)
[2018-07-12] MEDS: hydrALAZINE 25 MG TAB PO SCH ×3 (08:26→21:02)
[2018-07-12] MEDS: Aspirin Chewable 81 MG TAB PO SCH (08:26)
[2018-07-12] MEDS: HumaLOG 300 UNITS/3 ML VIAL SC SCH ×3 (08:30→16:44)
[2018-07-12] MEDS ORDERED: Insulin Glargine 12 UNITS in Pre-Filled Syringe 1 EACH SC SCH (09:00)
[2018-07-12] MEDS ORDERED: Insulin Glargine 22 UNITS in Pre-Filled Syringe 1 EACH SC SCH (09:00)
--- NOTE | 2018-07-12 09:17 | PRG ---
DATE OF SERVICE: 07/12/2018 RENAL MEDICINE. SUBJECTIVE: Mr. Fragoso is a 42-year-old black male with ESRD, followed by the [facility] for maintenance hemodialysis. He did undergo dialysis yesterday without any difficulty. He was initially admitted for hypoglycemia. This morning, he voices no new complaints. He is doing well. The patient denies any chest pain or shortness of breath. OBJECTIVE: VITAL SIGNS: Blood pressure 102/63, heart rate 72, respiratory rate 18, temperature 98.2, and pulse oximetry 98%. GENERAL: Noted to be awake, alert, comfortable, not in distress. SKIN: Adequate turgor. HEENT: Pinkish conjunctivae. Anicteric sclerae. NECK: No neck mass. No carotid bruits. No JVD. Decreased visual activity. LUNGS: Clear breath sounds. HEART: Normal sinus rhythm. No murmurs, gallops, or rubs. ABDOMEN: Globular, soft, nontender. No masses. EXTREMITIES: No edema. No deformities. MEDICATIONS: Medications of July 12, 2018, reviewed. LABORATORY DATA: Laboratories of July 10, 2018, white count 4, hemoglobin 11.2. July 12, 2018, sugar 469. July 10, 2018, creatinine was 9.31. ASSESSMENT/PLAN: End stage renal disease, continuing Wednesday, Wednesday, Wednesday hemodialysis regimen. Fluid removal as tolerated. There is no indication for an emergent hemodialysis today. We will recheck basic metabolic panel and CBC in a.m. Job ID: [id number]
--- NOTE | 2018-07-12 13:46 | PRG ---
DATE OF SERVICE: 07/12/2018 SERVICE: Pulmonary Medicine. INTERVAL HISTORY: The patient is doing really well from respiratory standpoint. He has not had any additional issues with low blood sugar. He denies any current chest pain, fevers, or chills. There has been no interval change to his condition otherwise. PHYSICAL EXAMINATION: VITAL SIGNS: Afebrile, pulse 72, blood pressure 102/63, respirations 18, and saturation 98% on 1.5 L nasal cannula. HEENT: Normocephalic and atraumatic. Sclerae white. Conjunctivae pink. Oral mucosa is moist without lesions. LUNGS: Decent air entry with no prolonged expiratory phase or wheezing. HEART: Normal rate and regular. ABDOMEN: Soft, nontender, and nondistended. Bowel sounds are positive. MUSCULOSKELETAL: No cyanosis or clubbing. There is no pitting in the bilateral lower extremities. NEUROLOGIC: Grossly nonfocal. LABORATORY DATA: Glucose is ranging from 168 to 454. Blood culture x1 is growing coag-negative Staph, but blood culture x2 immediately following that were unremarkable to date. ASSESSMENT: 1. Type 2 diabetes mellitus. 2. Hypoglycemia secondary to insulin use. 3. Chronic systolic and diastolic heart failure. 4. End-stage renal disease. DISCUSSION AND PLAN: At this point, the patient has recovered back to his baseline. As such, he has no further requirements for inpatient Pulmonary/Critical Care opinion. I will sign off. Please call with additional questions or concerns moving forward. From a purely respiratory perspective, the patient is returned to baseline and can be transitioned out. Job ID: [id number] [facility]
[2018-07-12] MEDS: Rosuvastatin 10 MG TAB PO SCH (21:02)
[2018-07-12] MEDS: Montelukast Sodium 10 mg Tablet PO SCH (21:02)
[2018-07-13] MEDS ORDERED: Loperamide HCl 2 MG CAP PO PRN (00:19)
[2018-07-13] MEDS: HumaLOG 300 UNITS/3 ML VIAL SC PRN ×2 (06:50→16:46)
[2018-07-13 07:42] LABS: #Eosinphils 0.1 thou/uL (0.0-0.7); #Lymphocytes 1.8 thou/uL (1.20-3.40); #Monocytes 0.8 thou/uL (0.11-0.59); #Neutrophils 7.2 thou/uL (1.40-6.50); %Basophils 0.1 % (0.0-1.0); %Eosinophils 0.6 % (0.0-10.0); %Lymphocytes 18.4 % (21.0-51.0); %Monocytes 8.2 % (0.0-10.0); %Neutrophils 72.6 % (42.0-75.0); Hemoglobin 10.8 g/dL (14.0-18.0); Mean Corpuscular HGB CONC 31.5 g/dL (32.0-36.0); Mean Corpuscular Hemoglobin 31.4 pg (27.0-31.0); Mean Corpuscular Volume 99.5 fL (78.0-98.0); Mean Platelet Volume 8.9 fL (7.4-10.4); Platelet Count 106 thou/uL (130-400); RBC Distribution Width 17.1 % (11.5-14.5); Red Blood Cell (RBC) Count 3.45 mill/uL (4.70-6.10)
[2018-07-13] MEDS: Cinacalcet HCl 30 MG TAB PO SCH (07:45)
[2018-07-13] MEDS: Carvedilol 25 MG TAB PO SCH ×2 (07:45→22:19)
[2018-07-13] MEDS: Metoclopramide HCl 10 MG TAB PO SCH ×3 (07:45→16:39)
[2018-07-13] MEDS: Sevelamer Carbonate 800 MG TAB PO SCH ×3 (07:45→16:39)
[2018-07-13] MEDS: Aspirin Chewable 81 MG TAB PO SCH (07:45)
[2018-07-13] MEDS: Calcium Acetate 667 MG CAP PO SCH ×3 (07:45→16:39)
[2018-07-13 07:46] LABS: Anion Gap 22 mmol/L (10-20); BUN (Urea Nitrogen) 68 mg/dL (8.9-20.6); Calc. Creatinine Clearance 17 mL/min (70-130); Calcium 8.1 mg/dL (7.8-10.44); Carbon Dioxide 23 mmol/L (22-29); Chloride 96 mmol/L (98-107); Estimated GFR-MDRD 8; Glucose 248 mg/dL (70-105); Potassium 4.7 mmol/L (3.5-5.1); Sodium 136 mmol/L (136-145)
[2018-07-13] MEDS: hydrALAZINE 25 MG TAB PO SCH ×3 (07:46→22:21)
[2018-07-13] MEDS: Lisinopril 20 MG TAB PO SCH ×2 (07:46→22:22)
--- NOTE | 2018-07-13 08:36 | PRG ---
DATE OF SERVICE: 07/13/2018 RENAL MEDICINE SUBJECTIVE: Mr. Fragoso is a 42-year-old black male with ESRD, on maintenance hemodialysis and admitted for hypoglycemia. His hypoglycemia is much improved. He is currently undergoing dialysis. I am at the bedside supervising his dialysis. No other complaints today. No chest pain or shortness of breath. OBJECTIVE: VITAL SIGNS: Blood pressure 118/73, heart rate 68, respiratory rate 16, temperature 97.8, and pulse ox 93%. GENERAL: Noted to be awake, alert, comfortable, not in distress. SKIN: Adequate turgor. HEENT: Pinkish conjunctivae. Anicteric sclerae. NECK: No neck mass. No carotid bruits. No JVD. CHEST: No deformities. LUNGS: Clear breath sounds. HEART: Normal sinus rhythm. No murmur. No gallops. No rubs. ABDOMEN: Globular, soft, nontender. No masses. EXTREMITIES: No edema. No deformities. MEDICATIONS: Medications of July 13, 2018, reviewed. LABORATORY DATA: Laboratories of July 13, 2018; white count 10, hemoglobin is 10.8, and hematocrit 34.3. Sodium 136, potassium 4.7, chloride 96, carbon dioxide 23, BUN is 68, creatinine 8.43, glucose 248, and calcium 8.1. ASSESSMENT AND PLAN: 1. End-stage renal disease, stable, tolerating current hemodialysis regimen. Continue fluid removal as tolerated by the patient. No changes to be made with the current dialysis regimen. 2. Borderline anemia, currently on Epogen at 2000 units subcu 3 times a week. Overall, I agree with current management. Job ID: [id number]
[2018-07-13] MEDS ORDERED: Heparin 1,000 UNITS/ML VIAL ONE (11:11)
[2018-07-13] MEDS: Epoetin (ESRD) 20,000 UNITS/ML SC SCH (13:30)
[2018-07-13] MEDS: Montelukast Sodium 10 mg Tablet PO SCH (22:23)
[2018-07-13] MEDS: Rosuvastatin 10 MG TAB PO SCH (22:24)
[2018-07-14] MEDS: HumaLOG 300 UNITS/3 ML VIAL SC PRN ×2 (07:41→11:41)
[2018-07-14] MEDS: Sevelamer Carbonate 800 MG TAB PO SCH ×2 (08:43→11:38)
[2018-07-14] MEDS: Cinacalcet HCl 30 MG TAB PO SCH (08:43)
[2018-07-14] MEDS: Metoclopramide HCl 10 MG TAB PO SCH ×2 (08:43→11:39)
[2018-07-14] MEDS: Calcium Acetate 667 MG CAP PO SCH ×2 (08:43→11:38)
[2018-07-14] MEDS: Lisinopril 20 MG TAB PO SCH (08:44)
[2018-07-14] MEDS: Aspirin Chewable 81 MG TAB PO SCH (08:44)
[2018-07-14] MEDS: Carvedilol 25 MG TAB PO SCH (08:45)
[2018-07-14] MEDS: hydrALAZINE 25 MG TAB PO SCH ×2 (08:45→14:10)
--- NOTE | 2018-07-14 09:47 | PRG ---
DATE OF SERVICE: 07/14/2018 SUBJECTIVE: Mr. Fragoso is a 42-year-old black male with ESRD and being followed by [facility] for his maintenance hemodialysis. He underwent hemodialysis without any difficulty yesterday; however, last nigh, blood pressure was reported to be on the low side. This morning, it was 114/79. I did instruct the nurse to hold off the BP medications for the moment. No other complaints. No chest pain or shortness of breath. OBJECTIVE: VITAL SIGNS: Blood pressure 114/79, heart rate 73, respiratory rate 18, temperature 98.3, and pulse ox 95%. GENERAL: Noted to be awake, alert, comfortable. Decreased visual activity. SKIN: Adequate turgor. HEENT: He has a pinkish conjunctivae. Anicteric sclerae. No neck mass. No carotid bruits. No JVD. CHEST: No deformities. LUNGS: Clear breath sounds. HEART: Normal sinus rhythm. No murmur. No gallops or rubs. ABDOMEN: Globular, soft, nontender. No masses. EXTREMITIES: No edema. No deformities. MEDICATIONS: Medications of July 14, 2018, reviewed. LABORATORY DATA: Labs of July 13, 2018, white count 10, hemoglobin 10.8. Sodium 136, potassium 4.7, chloride 96, carbon dioxide 23, BUN 68, creatinine 8.43, glucose 248, calcium 8.1. ASSESSMENT AND PLAN: 1. End-stage renal disease, stable. No indication for any emergent hemodialysis. Continue Wednesday, Wednesday, Wednesday dialysis. 2. Anemia, currently on Epogen. 3. Hypoglycemia, resolved. 4. Hypertension, currently on the low side with his blood pressure. Holding blood pressure medications for this morning. I will also suggest adjustment with his blood pressure medication. I will be decreasing his lisinopril from 20 mg tablet b.i.d. to 20 mg once a day. Job ID: [id number]
[2018-07-14 14:31] VITALS: BP 118/76; TEMP 98
[2018-07-15] MEDS ORDERED: Lisinopril 20 MG TAB PO SCH (09:00)
== END 2018-07-14 15:18 | disposition home or self-care (01) | DRG 638 ==
LOC: ERS 17:28 → ERHOLD 21:39 → IMCU/EMU 07-11 01:32 → T4-B 07-11 17:39
PROVIDERS: ADMIT Internal Medicine; ATTEND Internal Medicine
PROC: 5A1D70Z Performance of Urinary Filtration, Intermittent, Less than 6 Hours Per Day (ICD-10-PCS; principal; 2018-07-13)
DX: E11.649 Type 2 diabetes mellitus with hypoglycemia without coma (principal); I13.2 Hypertensive heart and chronic kidney disease with heart failure and with stage 5 chronic kidney disease, or end stage renal disease; I50.42 Chronic combined systolic (congestive) and diastolic (congestive) heart failure; I47.2 Ventricular tachycardia; E87.1 Hypo-osmolality and hyponatremia; Z79.4 Long term (current) use of insulin; E11.22 Type 2 diabetes mellitus with diabetic chronic kidney disease; N18.6 End stage renal disease; Z99.2 Dependence on renal dialysis; E11.51 Type 2 diabetes mellitus with diabetic peripheral angiopathy without gangrene; T68.XXXA Hypothermia, initial encounter; E78.5 Hyperlipidemia, unspecified; H54.7 Unspecified visual loss; D63.1 Anemia in chronic kidney disease
CPT/HCPCS: 36415; 36416; 36556; 51702; 71045; 80048; 80053; 82330; 82435; 82550; 82553; 82565; 82803; 82947; 83605; 83880; 84132; 84295; 84484; 85014; 85025; 85610; 85730; 87040; 87149; 90935; 93005; 96365; 96367; 96374; 96375; 96376; G0257; J1100; J1644; J1815; J1825; J2543; J3370; J7050; J8597; Q4081

== ENCOUNTER 2019-06-19 09:03 | Observation (INO) | payer MEDICARE, MEDICAID ==
[2019-06-19] MEDS ORDERED: Morphine 4 MG/ML VIAL ONE (09:24)
[2019-06-19] MEDS ORDERED: Nitroglycerin 2% Ointment 1 INCH/1 GM Packet ONE (09:24)
--- NOTE | 2019-06-19 09:45 | RAD ---
PORTABLE CHEST: Date: 06/19/2019 HISTORY: Chest pain. COMPARISON: 07/10/18 study. FINDINGS: Heart size is enlarged. Pulmonary vessels are mildly engorged with slightly increased parahilar lung markings present. IMPRESSION: Cardiomegaly with some mild pulmonary edema change. POS: TONYH
[2019-06-19 09:52] LABS: #Eosinphils 0.4 thou/uL (0.0-0.7); #Lymphocytes 2.3 thou/uL (1.20-3.40); #Monocytes 0.7 thou/uL (0.11-0.59); #Neutrophils 3.5 thou/uL (1.40-6.50); %Basophils 0.4 % (0.0-1.0); %Eosinophils 5.4 % (0.0-10.0); %Monocytes 9.8 % (0.0-10.0); %Neutrophils 51.4 % (42.0-75.0); Hemoglobin 11.5 g/dL (14.0-18.0); Mean Corpuscular HGB CONC 32.7 g/dL (32.0-36.0); Mean Corpuscular Hemoglobin 30.9 pg (27.0-31.0); Mean Corpuscular Volume 94.6 fL (78.0-98.0); Mean Platelet Volume 10.4 fL (7.4-10.4); Platelet Count 143 thou/uL (130-400); Red Blood Cell (RBC) Count 3.72 mill/uL (4.70-6.10); White Blood Cell (WBC) Count 6.9 thou/uL (4.8-10.8)
[2019-06-19 10:00] LABS: ALT (SGPT) 15 U/L (8-55); AST (SGOT) 15 U/L (5-34); Albumin 3.9 g/dL (3.5-5.0); Alkaline Phosphatase 82 U/L (40-110); Anion Gap 26 mmol/L (10-20); BUN (Urea Nitrogen) 81 mg/dL (8.9-20.6); Bilirubin, Total 1.6 mg/dL (0.2-1.2); CK (CPK) 499 U/L (30-200); Calc. Creatinine Clearance 0 mL/min (70-130); Calcium 9.1 mg/dL (7.8-10.44); Carbon Dioxide 20 mmol/L (22-29); Chloride 96 mmol/L (98-107); Estimated GFR-MDRD 5; Globulin 3.7 g/dL (2.4-3.5); Glucose 98 mg/dL (70-105); Potassium 4.7 mmol/L (3.5-5.1); Protein, Total 7.6 g/dL (6.0-8.3); Sodium 137 mmol/L (136-145)
[2019-06-19 10:30] LABS: CKMB 10.5 ng/mL (0-6.6)
[2019-06-19 17:18] LABS: Troponin I 0.052 ng/mL (< 0.028)
[2019-06-19 17:32] LABS: HBSAg Index 0.28 S/CO (0-0.99); Hep B Surf Ag Non-Reactive S/CO (NonReactive); Hep C IgG Ab Non-Reactive (NonReactive); Hep C Index 0.08 S/CO (0-0.79)
[2019-06-19 17:53] LABS: HBSAB Concentration 111.34 mIU/mL
[2019-06-19 17:54] LABS: Hep B Surf AB Reactive (NonReactive)
[2019-06-19 18:28] LABS: Hep B Core Total Ab Reactive (NonReactive); Hep B Core Total Index 11.01 S/CO (0-0.79)
[2019-06-19] MEDS ORDERED: Dextrose 50% Abboject 50 ML SYRINGE IVP PRN (18:54)
[2019-06-19] MEDS ORDERED: Insulin Regular 300 UNITS/3 ML VIAL SC PRN (18:54)
[2019-06-19] MEDS ORDERED: Dextrose 5% in Water 1,000 ML IV PRN (18:54)
[2019-06-19] MEDS ORDERED: traMADol HCl 50 MG TAB PO PRN (19:01)
[2019-06-19] MEDS: cloNIDine 0.3 MG TAB PO SCH (20:15)
[2019-06-19] MEDS: Rosuvastatin 10 MG TAB PO SCH (20:15)
[2019-06-19] MEDS: Metoclopramide HCl 10 MG TAB PO SCH (20:15)
[2019-06-19] MEDS: Losartan 25 MG TAB PO SCH (20:15)
[2019-06-19] MEDS: Insulin Glargine 20 UNITS in Pre-Filled Syringe 1 EACH SC SCH (20:47)
[2019-06-19] MEDS ORDERED: Carvedilol 25 MG TAB PO SCH (21:00)
--- NOTE | 2019-06-19 21:59 | HP ---
CHIEF COMPLAINT: Chest pain. HISTORY OF PRESENT ILLNESS: Mr. Fragoso is a 43-year-old Afro-[place] male with past medical history of end-stage renal disease, hypertension, nonischemic cardiomyopathy, started having diaphoresis when he was at the dialysis center before they started dialysis. Later on, he developed chest pain, which is in the retrosternal area, pressure-like, nonradiating. No nausea or vomiting. No shortness of breath. In the ER, had chest pain and diaphoresis. The patient was transferred to the hospital. In the ER, the patient was evaluated and found to have normal cardiac enzymes, but elevated blood pressure. The patient was given nitroglycerin, his chest pain got resolved. He is admitted for further evaluation and management. PAST MEDICAL HISTORY: 1. End-stage renal disease, on hemodialysis. 2. Hypertension. 3. Insulin dependent diabetes mellitus. 4. Peripheral vascular disease. 5. Hyperlipidemia. 6. History of nonsustained ventricular tachycardia, nonischemic cardiomyopathy. PAST SURGICAL HISTORY: Status post BKA, left. CURRENT MEDICATIONS: The patient is on; 1. Amlodipine 5 mg daily. 2. Coreg 25 b.i.d. 3. Vitamin D 2000 units daily. 4. Clonidine 0.3 b.i.d. 5. Hydralazine 100 mg daily. 6. Levemir insulin 20 units b.i.d. 7. Losartan 100 mg daily at bedtime. 8. Metoclopramide 10 mg before meals and at bedtime p.r.n. 9. Protonix 40 mg daily. 10. Crestor 10 mg daily. 11. Sertraline 150 mg at bedtime. 12. Renvela 2400 mg t.i.d. 13. Tramadol 50 t.i.d. p.r.n. ALLERGIES: NKDA. FAMILY HISTORY: Nothing contributory. SOCIAL HISTORY: The patient lives with family. No history of smoking. No history of alcohol REVIEW OF SYSTEMS: CARDIOVASCULAR: He has chest pain. No shortness of breath. RESPIRATORY: No fever or cough. GASTROINTESTINAL: No nausea, or vomiting. CENTRAL NERVOUS SYSTEM: No headache. No dizziness. PHYSICAL EXAMINATION: GENERAL: The patient is alert, awake, oriented x3. VITAL SIGNS: Temperature 98, pulse 60, respirations 20, blood pressure 130/90. HEENT: Head is normocephalic, atraumatic. Pupils equal and reactive. Nasopharynx is pale and dry. NECK: Supple. No JVD. LUNGS: Bilateral air entry. No rales. No rhonchi. HEART: S1, S2, regular. ABDOMEN: Soft. No distention. No tenderness. Normal bowel sounds present. RECTAL: Deferred. CENTRAL NERVOUS SYSTEM: No focal deficit. EXTREMITIES: Left BKA. LABORATORY DATA: CBC shows WBC 6.9, hemoglobin 11, hematocrit 35, platelets 147. Metabolic panel; sodium 137, potassium 4.7, chloride 96, CO2 of 20, BUN 81, creatinine 13, glucose 98. Troponin 0.066. BNP of 9292. EKG shows normal sinus rhythm, no acute ST-T changes seen. Chest x-ray, cardiomegaly, no infiltrate. ASSESSMENT: 1. Chest pain, rule out myocardial infarction. 2. Nonischemic cardiomyopathy. 3. Hypertension. 4. End-stage renal disease, on dialysis. 5. Diabetes mellitus, peripheral vascular disease. PLAN: 1. Vital sings q.4 hours. 2. Activity as tolerated. 3. Allergies, NKDA. 4. Hep-Lock. 5. Continue home medications. Accu-Chek before meals and at bedtime sliding scale mild with regular insulin. 6. Obtain stress test. Job ID: [id number]
--- NOTE | 2019-06-19 23:49 | CON ---
DATE OF CONSULTATION: HISTORY OF PRESENT ILLNESS: Mr. Fragoso is a 43-year-old black male, who was admitted for chest pain. He has a history of ESRD and on maintenance hemodialysis, Wednesday, Wednesday, and Wednesday. We are now being consulted for management of his ESRD. He initially presented with chest pain at the dialysis unit today and was diaphoretic. For that reason, he will be admitted for rule out [place] and for further cardiac workup. REVIEW OF SYSTEMS: Positive for chest pain-currently resolved. No nausea. No vomiting. No shortness of breath. No productive cough. No fever, or chills. Appetite and energy level are fair. Decreased visual acuity. No diarrhea, or constipation. No gross hematuria. No dysuria. No urinary frequency. MEDICATIONS: 1. Tramadol 50 mg t.i.d. p.r.n. 2. Hydralazine 100 mg p.o. t.i.d.? 3. Clonidine 0.3 mg p.o. t.i.d. 4. Renvela 800 mg 3 tablets t.i.d. with meals. 5. Sertraline 150 mg at bedtime. 6. Crestor 10 mg at bedtime. 7. Protonix 40 mg at bedtime p.r.n. 8. Losartan 100 mg at bedtime. 9. Reglan 10 mg before meals. 10. Levemir FlexPen 20 units subcu b.i.d. 11. Vitamin D3 2000 international units daily. 12. Carvedilol 25 mg p.o. b.i.d. 13. Amlodipine 5 mg tablet once a day. PAST MEDICAL HISTORY: 1. ESRD from diabetic nephropathy. 2. Type 2 diabetes mellitus. 3. Longstanding hypertension. 4. Diabetic retinopathy. 5. Chronic pain. 6. Hyperlipidemia. 7. Status post CHF. 8. Diabetic gastroparesis. 9. COPD. 10. Peripheral vascular disease. 11. Chronic blindness. PAST SURGICAL HISTORY: Status post left BKA, status post AV fistula placement, status post skin graft, status post cuffed hemodialysis catheter placement. SOCIAL HISTORY: The patient lives with his sister in [place]. He is single. No children. Retired employee from a [employer]. No alcohol intake. No smoking. No IV drug abuse. Status post blood transfusion. Education, high school. Sedentary lifestyle. ALLERGIES: NONE. TRAUMA: None. IMMUNIZATION: Up-to-date. HOSPITALIZATIONS: Please see past medical history. FAMILY HISTORY: No family history of ESRD. PHYSICAL EXAMINATION: VITAL SIGNS: Blood pressure is noted at 135/95, heart rate 67, respiratory rate 16, temperature 97.6, pulse ox 97%. GENERAL: Noted to be awake, alert, comfortable, not in distress. SKIN: Adequate turgor. HEENT: He has pinkish conjunctivae. Anicteric sclerae. NECK: No neck mass. No carotid bruits. No JVD. CHEST: No deformities. LUNGS: Clear breath sounds. HEART: Normal sinus rhythm. No murmur. No gallops. No rubs. ABDOMEN: Globular, soft, nontender, no masses. EXTREMITIES: No edema. No deformities. Status post left BKA. LABORATORY DATA: Laboratories of June 19, 2019; sodium 137, potassium 4.7, chloride 96, carbon dioxide 20, BUN 81, creatinine 13, glucose 98, calcium 9.1, AST 15, ALT 15. CK-MB 10.5, CK 499, troponin I is 0.066. BNP is 9292. Chest x-ray, increased lung markings. ASSESSMENT AND PLAN: 1. End-stage renal disease, stable. We will resume hemodialysis tomorrow. I have scheduled him for an early a.m. hemodialysis with maximal fluid removal as tolerated. Review of the last Kt/V suggests he is adequately dialyzed with the current dialysis regimen. 2. Elevated BNP/increased lung marking. He has a mild congestive heart failure. I do not see any indication for emergent hemodialysis tonight with this patient. 3. Chest pain. The patient being ruled out for myocardial infarction. Consider cardiac stress test if warranted. 4. Overall, agree with current management. Job ID: [id number]
[2019-06-20] MEDS: Insulin Glargine 20 UNITS in Pre-Filled Syringe 1 EACH SC SCH ×2 (09:00→21:11)
--- NOTE | 2019-06-20 09:21 | PRG ---
DATE OF SERVICE: 06/20/2019 SUBJECTIVE: Mr. Fragoso is a 43-year-old black male with ESRD, admitted for chest pain. He has been ruled out for [place]. He is currently undergoing hemodialysis. He did miss dialysis yesterday. After dialysis today, will resume back his Wednesday, Wednesday, and Wednesday schedule. He denies any chest pain or shortness of breath. OBJECTIVE: VITAL SIGNS: Blood pressure 118/78, heart rate 60, respiratory rate 16, temperature 97.9, pulse ox 95%. GENERAL Awake, alert, comfortable, not in overt distress. SKIN: Adequate turgor. HEENT: He has a pinkish conjunctivae. Anicteric sclerae. NECK: No neck mass. No carotid bruits. No JVD. CHEST: No deformities. LUNGS: Clear breath sounds. HEART: Normal sinus rhythm. No murmur. No gallops. No rubs. ABDOMEN: Globular, soft, nontender, no masses. EXTREMITIES: No edema, status post left BKA. NEUROLOGIC: Decreased visual activity. MEDICATIONS: Medications of June 20, 2019, reviewed. LABORATORY DATA: June 19, 2019, white count 6.9, hemoglobin 11.5. June 20, 2019, glucose 133. June 19, 2019, potassium 4.7, BUN 81, creatinine 13. Troponin I 0.052. ASSESSMENT AND PLAN: 1. Endstage renal disease, stable. Continue hemodialysis regimen three times a week. Resume back the Wednesday, Wednesday, and Wednesday dialysis starting tomorrow if the patient is still here. 2. Chest pain, rule out [place], for possible cardiac stress test. 3. Hypertension, continue current BP medications. 4. Recheck basic metabolic profile and CBC in a.m. Job ID: [id number]
[2019-06-20] MEDS: Carvedilol 25 MG TAB PO SCH ×2 (13:32→20:03)
[2019-06-20] MEDS: Amlodipine 5 MG TAB PO SCH (13:33)
[2019-06-20] MEDS: Sevelamer Carbonate 800 MG TAB PO SCH ×3 (13:33→18:20)
[2019-06-20] MEDS: cloNIDine 0.3 MG TAB PO SCH ×2 (13:33→20:00)
[2019-06-20] MEDS: hydrALAZINE 25 MG TAB PO SCH (13:33)
[2019-06-20] MEDS: Metoclopramide HCl 10 MG TAB PO SCH ×4 (13:33→20:03)
[2019-06-20] MEDS: Losartan 25 MG TAB PO SCH (20:03)
[2019-06-20] MEDS: Rosuvastatin 10 MG TAB PO SCH (20:03)
[2019-06-21 05:29] LABS: Anion Gap 17 mmol/L (10-20); BUN (Urea Nitrogen) 50 mg/dL (8.9-20.6); Calc. Creatinine Clearance 13 mL/min (70-130); Calcium 8.3 mg/dL (7.8-10.44); Carbon Dioxide 28 mmol/L (22-29); Chloride 97 mmol/L (98-107); Estimated GFR-MDRD 7; Glucose 137 mg/dL (70-105); Potassium 4.5 mmol/L (3.5-5.1); Sodium 137 mmol/L (136-145)
[2019-06-21 06:25] LABS: #Eosinphils 0.3 thou/uL (0.0-0.7); #Lymphocytes 1.3 thou/uL (1.20-3.40); #Monocytes 0.6 thou/uL (0.11-0.59); #Neutrophils 2.3 thou/uL (1.40-6.50); %Basophils 0.6 % (0.0-1.0); %Eosinophils 6.1 % (0.0-10.0); %Lymphocytes 28.9 % (21.0-51.0); %Monocytes 13.7 % (0.0-10.0); %Neutrophils 50.8 % (42.0-75.0); Band 3 % (5-11); Eosinophils 3 % (0-10); Hemoglobin 10.3 g/dL (14.0-18.0); Lymphocytes 29 % (21-51); MDiff Complete? YES; Mean Corpuscular HGB CONC 32.4 g/dL (32.0-36.0); Mean Corpuscular Volume 95.5 fL (78.0-98.0); Mean Platelet Volume 9.2 fL (7.4-10.4); Monocytes 15 % (0-10); Neutrophil 50 % (42-75); Platelet Count 114 thou/uL (130-400); Platelet Morphology Comment Appears Decreased; RBC Distribution Width 14.1 % (11.5-14.5); Red Blood Cell (RBC) Count 3.31 mill/uL (4.70-6.10); White Blood Cell (WBC) Count 4.5 thou/uL (4.8-10.8)
[2019-06-21] MEDS: Metoclopramide HCl 10 MG TAB PO SCH ×4 (09:29→21:20)
[2019-06-21] MEDS: Carvedilol 25 MG TAB PO SCH ×2 (09:30→16:16)
[2019-06-21] MEDS: cloNIDine 0.3 MG TAB PO SCH ×2 (09:30→21:21)
[2019-06-21] MEDS: Sevelamer Carbonate 800 MG TAB PO SCH ×3 (09:30→16:16)
--- NOTE | 2019-06-21 10:10 | NM ---
EXAM: CARDIAC SPECT HISTORY: Chest pain, cardiomyopathy, peripheral vascular disease, end-stage renal disease, hypertensi on, diabetes TECHNIQUE: A myocardial perfusion scan was performed using the single isotope 2 day protocol with adrian hnetium 99m sestamibi. [30 mCi] was injected intravenously for the rest exam followed by 30 mCi for the stress study. Pharmacologic stress with Lexiscan was monitored and interpreted by Dr. Benitez FINDINGS: Homogeneous tracer distribution is seen in the myocardial segments on stress and rest image s without fixed or reversible defects. Left ventricular cavity is dilated. Gated SPECT LVEF: 29% Wall motion exam: Global hypokinesis IMPRESSION: No evidence of reversible ischemia
[2019-06-21] MEDS: hydrALAZINE 25 MG TAB PO SCH ×2 (12:46→12:47)
[2019-06-21] MEDS: Amlodipine 5 MG TAB PO SCH (12:47)
[2019-06-21] MEDS: Insulin Glargine 20 UNITS in Pre-Filled Syringe 1 EACH SC SCH ×2 (13:51→21:23)
[2019-06-21] MEDS ORDERED: Regadenoson 0.4 MG/5 ML SYRINGE ONE (15:42)
--- NOTE | 2019-06-21 16:31 | PRG ---
DATE OF SERVICE: 06/21/2019 SUBJECTIVE: Mr. Fragoso is a 43-year-old black male with ESRD-on hemodialysis, and admitted for chest pain. He underwent a cardiac stress test. No evidence of reversible ischemia was noted, but he had global hypokinesis. We are currently dialyzing him. He is tolerating said treatment. He voices no new complaints. He denies any chest pain or shortness of breath. OBJECTIVE: VITAL SIGNS: Blood pressure 171/72, heart rate 75, respiratory rate 15, temperature 97.4, and pulse ox 97% on room air. GENERAL: Awake, alert, and comfortable. Decreased visual acuity. HEENT: Pinkish conjunctivae. Anicteric sclerae. NECK: No neck mass. No carotid bruits. No JVD. CHEST: No deformities. LUNGS: Clear breath sounds. HEART: Normal sinus rhythm. No murmur. No gallops. No rubs. ABDOMEN: Globular, soft, and nontender. No masses. EXTREMITIES: No edema, status post left BKA. MEDICATIONS: Medications of June 21, 2019 were reviewed. LABORATORY DATA: Laboratories of June 21, 2019; sodium 137, potassium 4.5, chloride 97, carbon dioxide 28, BUN 60, creatinine 10.1, glucose 137, calcium 8.3. White count 4.5 and hemoglobin 10.3. ASSESSMENT/PLAN: 1. End-stage renal disease, stable, tolerating current hemodialysis. Fluid removal as tolerated. 2. Chest pain, resolved. Cardiac stress test was negative for active ischemia. 3. Decreased EF. Continue losartan 100 mg tablet once a day. 4. Overall agree with current management. Agree with planned discharge. Job ID: [id number]
[2019-06-21] MEDS: Losartan 25 MG TAB PO SCH (21:21)
[2019-06-21] MEDS: Rosuvastatin 10 MG TAB PO SCH (21:21)
[2019-06-22] MEDS: Insulin Glargine 20 UNITS in Pre-Filled Syringe 1 EACH SC SCH (09:06)
[2019-06-22] MEDS: Sevelamer Carbonate 800 MG TAB PO SCH ×3 (09:07→17:43)
[2019-06-22] MEDS: Carvedilol 25 MG TAB PO SCH ×2 (09:07→17:45)
[2019-06-22] MEDS: Metoclopramide HCl 10 MG TAB PO SCH ×3 (09:07→17:43)
[2019-06-22] MEDS: Amlodipine 5 MG TAB PO SCH (09:07)
[2019-06-22] MEDS: hydrALAZINE 25 MG TAB PO SCH (09:07)
[2019-06-22] MEDS: cloNIDine 0.3 MG TAB PO SCH (09:43)
[2019-06-22 16:39] VITALS: BP 118/73; TEMP 97.8
--- NOTE | 2019-06-24 10:20 | STRESS ---
Acquisition Time: 2019-06-21 08:28:18 Total Exercise Time: 00:01:00 Test Indications: CHEST PAIN Medications: Protocol: LEXISCAN Max HR: 078 BPM 44% of Pred: 176 BPM Max BP: 112/062 mmHG Max Work Load: 1.0 METS RESTING ECG: NORMAL SINUS RHYTHM WITH NON-SPECIFIC ST SEGMENT AND T-WAVE CHANGES SYMPTOMS: NONE HYPOTENSIVE RESPONSE TO LEXISCAN ECTOPY: NONE ECG STRESS: NO SIGNFICANT CHANGES INTERPRETATION: AWAIT NUCLEAR IMAGES FOR DEFINITIVE DIAGNOSIS Confirmed by YOLIS STODDARD ([id number]), development editor EFREN SOTO ([id number]) on 06/24/2019 10:19:57 AM Referred By: MD Elif BAUMANN Confirmed By:YOLIS STODDARD
== END 2019-06-22 19:32 ==
LOC: ERS 09:03 → INTOOBSV 12:50 → ERHOLD 12:50 → 2SW 15:30
PROVIDERS: ADMIT Internal Medicine; ATTEND Emergency Medicine
DX: R07.2 Precordial pain (principal); E11.21 Type 2 diabetes mellitus with diabetic nephropathy; E11.22 Type 2 diabetes mellitus with diabetic chronic kidney disease; N18.6 End stage renal disease; I42.8 Other cardiomyopathies; E11.51 Type 2 diabetes mellitus with diabetic peripheral angiopathy without gangrene; H54.8 Legal blindness, as defined in USA; E03.9 Hypothyroidism, unspecified; E11.319 Type 2 diabetes mellitus with unspecified diabetic retinopathy without macular edema; E11.43 Type 2 diabetes mellitus with diabetic autonomic (poly)neuropathy; K31.84 Gastroparesis; J44.9 Chronic obstructive pulmonary disease, unspecified; I11.0 Hypertensive heart disease with heart failure; I50.9 Heart failure, unspecified; E78.5 Hyperlipidemia, unspecified; Z79.4 Long term (current) use of insulin; Z79.899 Other long term (current) drug therapy; Z89.421 Acquired absence of other right toe(s); Z89.512 Acquired absence of left leg below knee; Z99.2 Dependence on renal dialysis
CPT/HCPCS: 71045; 78452; 80048; 80053; 82550; 82553; 82962 ×4; 83880; 84484 ×2; 85025 ×2; 86704; 86706; 86803; 87340; 93005; 93017; 96374; 97116; 97139 ×3; 99285; A9500; G0378 ×5; 36415; 36416; J1815; J2270; J2785

== ENCOUNTER 2020-04-03 09:11 | Observation (INO) | payer MEDICARE, MEDICAID, OTHER ==
[2020-04-03] MEDS ORDERED: Nitroglycerin 0.4 MG TAB 1 EACH ONE (09:23)
[2020-04-03 09:48] LABS: #Eosinphils 0.3 thou/uL (0.0-0.7); #Lymphocytes 1.7 thou/uL (1.20-3.40); #Monocytes 0.7 thou/uL (0.11-0.59); #Neutrophils 2.5 thou/uL (1.40-6.50); %Basophils 0.9 % (0.0-1.0); %Eosinophils 5.3 % (0.0-10.0); %Monocytes 12.5 % (0.0-10.0); %Neutrophils 48.3 % (42.0-75.0); Hemoglobin 10.6 g/dL (14.0-18.0); Mean Corpuscular HGB CONC 32.8 g/dL (32.0-36.0); Mean Corpuscular Hemoglobin 31.8 pg (27.0-31.0); Mean Platelet Volume 9.2 fL (7.4-10.4); Platelet Count 89 thou/uL (130-400); Red Blood Cell (RBC) Count 3.34 mill/uL (4.70-6.10); White Blood Cell (WBC) Count 5.2 thou/uL (4.8-10.8)
--- NOTE | 2020-04-03 09:53 | RAD ---
EXAM: Single view of the chest HISTORY: Chest pain COMPARISON: 06/19/2019 FINDINGS: Single view of the chest shows an enlarged but stable cardiomediastinal silhouette. A righ t IJ dialysis catheter seen with its tip in the superior vena cava. There are diffuse fluffy opacities in the lungs which may represent pulmonary edema. No pleural effusion is seen. No acute oss eous abnormality. A stent is seen in the left subclavian region. IMPRESSION: Cardiomegaly and pulmonary edema
[2020-04-03 09:58] LABS: ALT (SGPT) 14 U/L (8-55); AST (SGOT) 24 U/L (5-34); Albumin 3.7 g/dL (3.5-5.0); Alkaline Phosphatase 104 U/L (40-110); Anion Gap 19 mmol/L (10-20); BUN (Urea Nitrogen) 62 mg/dL (8.9-20.6); Bilirubin, Total 1.1 mg/dL (0.2-1.2); Calc. Creatinine Clearance 0 mL/min (70-130); Calcium 7.4 mg/dL (7.8-10.44); Carbon Dioxide 22 mmol/L (22-29); Chloride 95 mmol/L (98-107); Estimated GFR-MDRD 8; Globulin 3.9 g/dL (2.4-3.5); Glucose 162 mg/dL (70-105); Potassium 5.1 mmol/L (3.5-5.1); Protein, Total 7.6 g/dL (6.0-8.3); Sodium 131 mmol/L (136-145)
[2020-04-03 10:30] LABS: CKMB 8.7 ng/mL (0-6.6)
[2020-04-03] MEDS ORDERED: Loperamide HCl 2 MG CAP PO PRN (11:02)
[2020-04-03] MEDS ORDERED: Ondansetron PF 4 MG/2 ML Vial IVP PRN (11:02)
[2020-04-03] MEDS ORDERED: Zolpidem Tartrate 5 MG TAB PO PRN (11:02)
[2020-04-03] MEDS ORDERED: Nitroglycerin 0.4 MG TAB (25 Tab Bottle) SL PRN (11:02)
[2020-04-03] MEDS ORDERED: Acetaminophen 325 MG TAB PO PRN (11:02)
[2020-04-03] MEDS ORDERED: Senokot S 8.6-50 MG TAB PO PRN (11:02)
[2020-04-03] MEDS ORDERED: Loratadine 10 MG TAB PO PRN (11:02)
[2020-04-03] MEDS ORDERED: Ondansetron ODT 4 MG TAB PO PRN (11:02)
[2020-04-03] MEDS ORDERED: HYDROcodone/Acetaminophen 5/325 mg Tablet PO PRN (11:02)
[2020-04-03] MEDS ORDERED: hydrALAZINE 20 MG/ML VIAL SLOW IVP PRN (11:02)
[2020-04-03] MEDS ORDERED: Calcium Carbonate 500 MG ChewTAB PO PRN (11:02)
[2020-04-03] MEDS ORDERED: Bisacodyl 10 MG SUPP PR PRN (11:02)
[2020-04-03] MEDS ORDERED: HumaLOG 300 UNITS/3 ML VIAL SC PRN ×2 (11:05)
[2020-04-03] MEDS ORDERED: Dextrose 5% in Water 1,000 ML IV PRN (11:05)
[2020-04-03] MEDS ORDERED: Dextrose 50% Abboject 50 ML SYRINGE SLOW IVP PRN (11:05)
[2020-04-03] MEDS ORDERED: traMADol HCl 50 MG TAB PO PRN ×2 (11:19→14:30)
[2020-04-03] MEDS ORDERED: Metoclopramide HCl 10 MG TAB PO PRN (11:21)
--- NOTE | 2020-04-03 11:49 | HP ---
PRIMARY CARE PHYSICIAN: [facility]. REASON FOR ADMISSION: Chest pain. HISTORY OF PRESENT ILLNESS: A 44-year-old male, who has multiple medical problems including nonischemic cardiomyopathy with EF 20% to 25% as well as ESRD on hemodialysis, hypertension, who was waiting for his outpatient dialysis where he started having substernal chest pain, which was radiating to neck and shoulder, lasted for about 30 minutes and subsided by itself without any intervention and subsequently, the patient was sent to emergency room for evaluation. In the emergency room, the patient was slightly hypertensive. His EKG was unremarkable from previous. His chest x-ray showed cardiomegaly and pulmonary edema, but the patient was not complaining any shortness of breath. Apparently, this patient has history of nonischemic cardiomyopathy and he had cardiac catheterization, it showed minimal coronary artery disease, he has been evaluated for AICD and he refused in the past. He had nonsustained ventricular tachycardia and that is why alcohol rubber evaluated him early this year and the patient refused to go for AICD. This patient also had stress test done in June 2019, which was unremarkable for any ischemia. His last echocardiography in 2017 showed EF 25% to 30%. The patient followed Cardiology about 2 years ago. Today, he did not have any dialysis. In the emergency room, he was completely asymptomatic and expresses wish to go home. He did not have any shortness of breath, palpitation, or dizziness. PAST MEDICAL HISTORY: 1. ESRD, on hemodialysis Wednesday, Wednesday, and Wednesday. 2. Hypertension. 3. Diabetes type 2, insulin dependent. 4. Peripheral vascular disease. 5. History of left BKA. 6. Dyslipidemia. 7. Nonischemic cardiomyopathy. 8. History of nonsustained ventricular tachycardia. 9. Minimal coronary artery disease. 10. Anemia of renal disease. 11. Secondary hyperparathyroidism of renal origin. 12. Anxiety and depression. PAST SURGICAL HISTORY: History of left BKA, cardiac catheterization, and dialysis access in his right subclavian. CURRENT HOME MEDICATIONS: The patient did not bring his home medication, but based on most recent hospital record, the patient is on following medication; 1. Hydralazine 100 mg daily. 2. Clonidine 0.3 mg b.i.d. 3. Coreg 25 mg twice daily. 4. Lantus 20 units subcu b.i.d. 5. Losartan 100 mg p.o. at bedtime. 6. Amlodipine 5 mg daily. 7. Renvela 2400 mg t.i.d. 8. Vitamin D3 of 2000 units p.o. daily. 9. Zoloft 150 mg bedtime. 10. Crestor 10 mg p.o. at bedtime. 11. Protonix 40 mg daily. 12. Reglan 10 mg a.c. and at bedtime p.r.n. 13. Tramadol 50 mg t.i.d. p.r.n. PAST PSYCHIATRIC HISTORY: Anxiety and depression. ALLERGIES: NO KNOWN DRUG ALLERGIES. FAMILY HISTORY: Nothing significant, no strong family history of premature coronary artery disease, stroke, or cancer. SOCIAL HISTORY: The patient lives at home, ambulates with a wheelchair as well as he has prosthetics. No history of tobacco, alcohol, or illicit drug abuse. REVIEW OF SYSTEMS: All review of systems reviewed with him and negative except as mentioned in HPI. PHYSICAL EXAMINATION: VITAL SIGNS: Pulse 85, blood pressure 165/79, respiratory rate 18, and saturation 99% on room air. Weight not recorded yet. GENERAL: The patient is currently alert, awake, in no acute distress. HEENT: Head; normocephalic, atraumatic. NECK: Supple. No JVD. No meningeal signs of irritation. LUNGS: Grossly clear to auscultation without any rhonchi or rales. No tachypnea. No accessory muscles of respiration in use. Chest wall right subclavian hemodialysis catheter in place. CARDIAC: S1 and S2 appears regular. No murmur. No gallop. No rub. ABDOMEN: Obesity noted. Bowel sounds present. Nontender, nondistended. No organomegaly. No mass. EXTREMITY: Left BKA. Right lower extremity within normal limits. No edema. NEUROLOGIC: Nonfocal examination. Speech normal. SIGNIFICANT LABORATORY DATA: WBC 5.2, hemoglobin 10.6, and platelet 89. BMP; sodium 131, potassium 5.1, chloride 95, carbon dioxide 22, anion gap 19, BUN 62, creatinine 8.98, glucose 162, and calcium 7.4. LFT; AST 24, ALT 14, alkaline phosphatase 104, and albumin 3.7. CK-MB 8.7, troponin I 0.056. Chest x-ray showing cardiomegaly with pulmonary edema. EKG showing normal sinus rhythm, LVH. ASSESSMENT AND PLAN: 1. Chest pain. The patient's chest pain description is atypical, resolved spontaneously without intervention. His EKG is not showing any acute ischemic changes. His troponin is 0.056, but while looking at his old record, his troponin is chronically elevated. Currently, the patient is chest pain-free. We will keep him in the hospital for observation. We will do serial cardiac enzymes x3. If troponin significantly gets worse, than we will consider Cardiology evaluation. Meanwhile, we will monitor on telemetry floor. Echocardiography will be obtained to assess ejection fraction and other structural abnormality. We will start aspirin 325 mg p.o. daily, and after verification, his home medication will resume. We will also put on nitroglycerin patch q.8 hourly and check lipid profile for risk stratification. Healthy lifestyle measures discussed with the patient. 2. Bilateral conjunctivitis. The patient does have difficulty opening his both eye and he has sticky discharge. We will treat with trimethoprim and polymyxin B ophthalmic solution every 4 hourly in both eye. 3. End-stage renal disease, on hemodialysis. The patient did not have hemodialysis today. The patient is due for his regular dialysis. Nephrology will be consulted and he will get dialysis today. 4. Anemia of renal disease. His hemoglobin is 10.6, and he does not need any Procrit at this point. 5. Secondary hyperparathyroidism of renal origin. We will continue Renvela as per home dosage. 6. Diabetes, type 2, appears well controlled. We will continue his home dose of Levemir insulin and insulin as per sliding scale protocol. 7. Hypertension, appears not well controlled, that may be contributing to his chest pain. We will continue with hydralazine, amlodipine, Coreg, and clonidine. 8. Dyslipidemia. Continue Crestor and check lipid profile tomorrow morning. 9. Gastroesophageal reflux disease. Continue Protonix 40 mg p.o. daily. 10. Deep vein thrombosis prophylaxis not needed because we are expecting discharge in 24 hours. 11. Gastrointestinal prophylaxis. Protonix 40 mg p.o. daily. 12. History of nonischemic cardiomyopathy. The patient has been evaluated for automatic implantable cardioverter defibrillators in the past. He has refused automatic implantable cardioverter defibrillators in the past. At this point, if he does not get any arrhythmia, then we will consider outpatient evaluation with Cardiology, we are obtaining echocardiography. 13. Chronic systolic heart failure, currently patient appears to be euvolemic. We will obtain echocardiography as he had no echocardiography since 2018. 14. Code status: The patient is full code. 15. Disposition plan: Likely within 24 hours. If anything change like troponin goes significantly high or if he develops any arrhythmia while in hospital, then we will consider changing to inpatient status, but expecting his discharge most likely tomorrow morning. Job ID: [id number]
[2020-04-03] MEDS: Polymyxin B Sulf/Trimethoprim 10 ML OPHTH DROPS OP SCH ×3 (15:57→20:22)
[2020-04-03] MEDS: Sevelamer Carbonate 800 MG TAB PO SCH ×2 (15:59→17:27)
[2020-04-03] MEDS: hydrALAZINE 25 MG TAB PO SCH ×3 (16:00→20:20)
[2020-04-03 16:55] LABS: SARS-CoV-2 MS2 Positive; SARS-CoV-2 N Gene Negative; SARS-CoV-2 S Gene Negative; SARS-CoV-2 by NAA Not Detected (NotDetected); SARS-CoV-2 orf1ab Negative
[2020-04-03] MEDS: Nitroglycerin 2% Ointment 1 INCH/1 GM Packet TOP SCH ×2 (17:27→23:48)
[2020-04-03 18:37] LABS: Troponin I 0.064 ng/mL (< 0.028)
[2020-04-03] MEDS: Insulin Glargine 20 UNITS in Pre-Filled Syringe 1 EACH SC SCH (20:21)
[2020-04-03] MEDS: Carvedilol 25 MG TAB PO SCH (20:21)
[2020-04-03] MEDS: cloNIDine 0.3 MG TAB PO SCH (20:21)
[2020-04-03] MEDS ORDERED: Rosuvastatin 10 MG TAB PO SCH (21:00)
[2020-04-03] MEDS ORDERED: Non-Formulary Item 1 EACH (Levemir Flexpen [Levemir Flexpen] 100 UNITS/ML Pen) SC SCH (21:00)
[2020-04-03] MEDS ORDERED: Losartan 25 MG TAB PO SCH (21:00)
[2020-04-04] MEDS: Polymyxin B Sulf/Trimethoprim 10 ML OPHTH DROPS OP SCH ×5 (03:32→17:01)
[2020-04-04 04:19] LABS: #Eosinphils 0.3 thou/uL (0.0-0.7); #Monocytes 0.5 thou/uL (0.11-0.59); #Neutrophils 2.1 thou/uL (1.40-6.50); %Eosinophils 6.4 % (0.0-10.0); %Lymphocytes 25.9 % (21.0-51.0); %Monocytes 13.7 % (0.0-10.0); Mean Corpuscular HGB CONC 33.2 g/dL (32.0-36.0); Mean Corpuscular Hemoglobin 32.1 pg (27.0-31.0); Mean Corpuscular Volume 96.6 fL (78.0-98.0); Mean Platelet Volume 9.3 fL (7.4-10.4); Platelet Count 91 thou/uL (130-400); RBC Distribution Width 13.9 % (11.5-14.5); Red Blood Cell (RBC) Count 3.12 mill/uL (4.70-6.10)
[2020-04-04 04:37] LABS: ALT (SGPT) 15 U/L (8-55); AST (SGOT) 22 U/L (5-34); Albumin 3.4 g/dL (3.5-5.0); Alkaline Phosphatase 110 U/L (40-110); Anion Gap 18 mmol/L (10-20); BUN (Urea Nitrogen) 38 mg/dL (8.9-20.6); Bilirubin, Total 1.3 mg/dL (0.2-1.2); Calc. Creatinine Clearance 21 mL/min (70-130); Calcium 7.2 mg/dL (7.8-10.44); Carbon Dioxide 21 mmol/L (22-29); Cardiac Risk 2.7 (Less than 4.5); Chloride 98 mmol/L (98-107); Cholesterol 65 mg/dl (< 200 Desired); Estimated GFR-MDRD 11; Globulin 3.8 g/dL (2.4-3.5); Glucose 216 mg/dL (70-105); HDL Cholesterol 24 mg/dL (>60 Neg Risk); LDL Cholesterol, Calculated 22 mg/dL; Potassium 4.5 mmol/L (3.5-5.1); Protein, Total 7.2 g/dL (6.0-8.3); Sodium 132 mmol/L (136-145); Triglycerides 97 mg/dL (Less than 150)
[2020-04-04] MEDS: Nitroglycerin 2% Ointment 1 INCH/1 GM Packet TOP SCH (07:00)
[2020-04-04] MEDS: Carvedilol 25 MG TAB PO SCH (07:42)
[2020-04-04] MEDS: hydrALAZINE 25 MG TAB PO SCH ×3 (07:43→17:03)
[2020-04-04] MEDS: cloNIDine 0.3 MG TAB PO SCH (07:43)
[2020-04-04] MEDS: Sevelamer Carbonate 800 MG TAB PO SCH ×3 (07:44→16:58)
[2020-04-04] MEDS ORDERED: Aspirin 325 mg Enteric Coated Tablet PO SCH (09:00)
[2020-04-04] MEDS ORDERED: Cholecalciferol 1,000 UNITS (25 MCG) TAB PO SCH (09:00)
[2020-04-04] MEDS ORDERED: Amlodipine 5 MG TAB PO SCH (09:00)
[2020-04-04] MEDS ORDERED: Famotidine 20 MG TAB PO SCH (09:00)
--- NOTE | 2020-04-04 09:07 | PRG ---
DATE OF SERVICE: 04/04/2020 SUBJECTIVE: Mr. Fragoso is a 44-year-old black male with ESRD-on maintenance hemodialysis and admitted for chest pain. This morning, he is currently asymptomatic. He has been ruled out for PR. EKG did not show any acute ST-T wave changes. We are following up this patient for management of his ESRD/maintenance hemodialysis. He did undergo hemodialysis yesterday without any difficulty. REVIEW OF SYSTEMS: Positive for chest pain-resolved. No shortness of breath. No nausea. No vomiting. No diarrhea. No constipation. No productive cough. No fever or chills. No sore throat. Appetite and energy level are fair. Decreased visual acuity. No headache. No diplopia. MEDICATIONS: Medications of April 04, 2020: 1. [place] 5/325 q.4 p.r.n. 2. Norvasc 5 mg daily. 3. Aspirin 325 mg once a day. 4. Dulcolax 10 mg p.r.n. 5. Carvedilol 25 mg p.o. b.i.d. 6. Vitamin D 2000 international units daily. 7. Hydralazine 25 mg p.o. q.i.d. 8. Insulin glargine 20 units subcu b.i.d. 9. Humalog sliding scale. 10. Losartan 100 mg at bedtime. 11. Zofran p.r.n. 12. Protonix 40 mg tablet once a day. 13. Trimethoprim eyedrop as directed. 14. Crestor 10 mg at bedtime. 15. Zoloft 150 mg at bedtime. 16. Ambien 5 mg at bedtime p.r.n. PAST MEDICAL HISTORY: 1. ESRD-currently on maintenance hemodialysis from diabetic neuropathy. 2. Hypertension. 3. Type 2 diabetes mellitus. 4. Decreased visual acuity-secondary to diabetic retinopathy. 5. Chronic pain. 6. Hyperlipidemia. 7. Status post CHF. 8. Diabetic gastroparesis. 9. COPD. 10. Peripheral vascular disease. 11. Chronic blindness. PAST SURGICAL HISTORY: Status post left BKA, status post AV fistula placement, status post skin graft, status post cuffed hemodialysis catheter placement, status post colonoscopy. SOCIAL HISTORY: The patient lives in [place] with his sister. He is single. No children. Retired employee from a [employer]. Education, high school. Sedentary lifestyle. Status post multiple blood transfusion. No smoking. No IV drug use. No alcohol. ALLERGIES: NONE. TRAUMA: None. IMMUNIZATIONS: Up-to-date. HOSPITALIZATIONS: Please see past medical history. FAMILY HISTORY: No family history of ESRD. PHYSICAL EXAMINATION: VITAL SIGNS: Blood pressure is noted at 107/67, heart rate 69, respiratory rate 17, temperature 97.7, and O2 saturation 98%. GENERAL: Awake, alert, and comfortable, not in distress. Obese. SKIN: Adequate turgor. HEENT: He has slightly pale conjunctivae. Anicteric sclerae. Decreased visual acuity. NECK: No neck mass. No carotid bruits. No JVD. LUNGS: Clear breath sounds. No wheezing. No crackles. HEART: Normal sinus rhythm. No murmur. No gallops. No rubs. ABDOMEN: Globular, soft, and nontender. No masses. EXTREMITIES: Status post left BKA. Right leg, no edema. NEUROLOGIC: Moving all extremities. No tremors. No asterixis. No ataxia. LABORATORY DATA: Laboratories of April 04, 2020; white count 4, hemoglobin 10, sodium 132, potassium 4.5, chloride 98, carbon dioxide 21, BUN 38, creatinine 6.62, glucose 216, and calcium 7.2. Troponin I 0.064. Chest x-ray increased lung markings. ASSESSMENT AND PLAN: 1. Chest pain-the patient ruled out for myocardial infarction. Previous stress test showed no acute ischemia-this was done back on June 19, 2019. 2. End-stage renal disease, stable. We will continue current hemodialysis regimen. There is no indication for emergent hemodialysis. As always, we will max out fluid removal with dialysis. Agree with current management. Job ID: [id number]
--- NOTE | 2020-04-04 09:28 | PDOC.HOSPP ---
- Subjective Encounter Date: 04/04/20 Encounter Time: 08:15 Subjective: Patient seen and examined. No new complaints. No overnight events, patient blood pressure runs a little bit low, patient is asymptomatic, he does not have any chest pain, his monitor remains without any arrhythmia - Objective Vital Signs & Weight: Vital Signs (12 hours) Temp Pulse Resp BP Pulse Ox 04/04/20 07:33 97.7 F 69 17 107/67 98 04/04/20 04:00 97.8 F 70 16 99/64 99 04/04/20 00:00 79 Weight Weight 236 lb 4.8 oz I&O: 04/03/20 04/04/20 04/05/20 06:59 06:59 06:59 Intake Total 580 Balance 580 Result Diagrams: 04/04/20 03:45 04/04/20 03:45 Additional Labs: Accuchecks 04/04/20 04/03/20 04/03/20 06:18 20:17 16:38 POC Glucose 149 H 219 H 119 H 04/03/20 13:48 POC Glucose 122 H Radiology Reviewed by me: Yes Hospitalist ROS - Review of Systems ENT: denies: ear pain, ear discharge, nose pain, nose discharge, nose congestion, mouth pain, mouth swelling, throat pain, throat swelling, other Respiratory: denies: cough, dry, shortness of breath, hemoptysis, SOB with excertion, pleuritic pain, sputum, wheezing, other Cardiovascular: denies: chest pain, palpitations, orthopnea, paroxysmal noc. dyspnea, edema, light headedness, other Gastrointestinal: denies: nausea, vomiting, abdominal pain, diarrhea, constipation, melena, hematochezia, other Genitourinary: denies: dysuria, frequency, incontinence, hematuria, retention, other Musculoskeletal: denies: neck pain, shoulder pain, arm pain, back pain, hand pain, leg pain, foot pain, other - Medication Medications: Active Medications Generic Name Dose Route Start Last Admin Trade Name Freq PRN Reason Stop Dose Admin Amlodipine Besylate 5 mg 04/04/20 09:00 04/04/20 07:42 Amlodipine 5 Mg Tab PO Not Given DAILY [facility] Aspirin 325 mg 04/04/20 09:00 04/04/20 07:44 Aspirin 325 Mg Enteric Coated Tablet PO 325 mg DAILY [facility] Administration Carvedilol 25 mg 04/03/20 21:00 04/04/20 07:42 Carvedilol 25 Mg Tab PO Not Given BID [facility] Cholecalciferol 2,000 units 04/04/20 09:00 04/04/20 07:44 Cholecalciferol 1,000 Units (25 Mcg) Tab PO 2,000 units DAILY [facility] Administration Clonidine 0.3 mg 04/03/20 21:00 04/04/20 07:43 Clonidine 0.3 Mg Tab PO Not Given BID [facility] Hydralazine HCl 25 mg 04/03/20 13:00 04/04/20 07:43 Hydralazine 25 Mg Tab PO Not Given QID [facility] Insulin Glargine 20 units/ 0.2 mls @ 0 mls/hr 04/03/20 21:00 04/03/20 20:21 Miscellaneous Medication SC 0.2 mls BID [facility] Administration Insulin Human Lispro 0 units 04/03/20 11:05 04/03/20 20:27 Humalog 300 Units/3 Ml Vial SC 2 units .BEDTIME SLIDING SC PRN Administration Bedtime Correctional Scale Losartan Potassium 100 mg 04/03/20 21:00 04/03/20 20:19 Losartan 25 Mg Tab PO 100 mg HS [facility] Administration Pantoprazole Sodium 40 mg 04/03/20 21:00 04/03/20 20:21 Pantoprazole 40 Mg Tab PO 40 mg HS [facility] Administration Polymyxin/Trimethoprim Sulfate 2 ml 04/03/20 13:00 04/04/20 07:48 Polymyxin B Sulf/Trimethoprim 10 Ml Ophth Drops OP 1 drop Q4HR [facility] Administration Rosuvastatin Calcium 10 mg 04/03/20 21:00 04/03/20 20:21 Rosuvastatin 10 Mg Tab PO 10 mg HS [facility] Administration Sertraline HCl 150 mg 04/03/20 21:00 04/03/20 20:20 Sertraline Hcl 100 Mg Tab PO 150 mg HS [facility] Administration Sevelamer Carbonate 2,400 mg 04/03/20 12:00 04/04/20 07:44 Sevelamer Carbonate 800 Mg Tab PO 2,400 mg TID-WM [facility] Administration - Exam General Appearance: NAD, awake alert Eye: PERRL, anicteric sclera ENT: normocephalic atraumatic, no oropharyngeal lesions Neck: supple, symmetric, no JVD, no thyromegaly, no lymphadenopathy Heart: RRR, no murmur, no gallops, no rubs Respiratory: CTAB, no wheezes, no rales, no ronchi Gastrointestinal: soft, non-tender, non-distended, normal bowel sounds, no palpable masses Extremities: no cyanosis, no clubbing, no edema Extremities - other findings: Left BKA Skin: normal turgor, no lesions Neurological: cranial nerve grossly intact, no focal deficits Musculoskeletal: normal tone, normal strength, no muscle wasting Psychiatric: normal affect, normal behavior, A&O x 3 Hosp A/P (1) Chest pain Code(s): R07.9 - CHEST PAIN, UNSPECIFIED Status: Acute (2) Elevated troponin Code(s): R77.8 - OTHER SPECIFIED ABNORMALITIES OF PLASMA PROTEINS Status: Chronic (3) ESRD (end stage renal disease) on dialysis Code(s): N18.6 - END STAGE RENAL DISEASE; Z99.2 - DEPENDENCE ON RENAL DIALYSIS Status: Chronic (4) Anemia of renal disease Code(s): N18.9 - CHRONIC KIDNEY DISEASE, UNSPECIFIED; D63.1 - ANEMIA IN CHRONIC KIDNEY DISEASE Status: Chronic (5) Secondary hyperparathyroidism (of renal origin) Code(s): N25.81 - SECONDARY HYPERPARATHYROIDISM OF RENAL ORIGIN Status: Chronic (6) Nonischemic cardiomyopathy Code(s): I42.8 - OTHER CARDIOMYOPATHIES Status: Chronic (7) Chronic systolic heart failure, ACC/AHA stage C Code(s): I50.22 - CHRONIC SYSTOLIC (CONGESTIVE) HEART FAILURE Status: Chronic (8) Hypertension Code(s): I10 - ESSENTIAL (PRIMARY) HYPERTENSION Status: Chronic (9) Diabetes type 2, controlled Code(s): E11.9 - TYPE 2 DIABETES MELLITUS WITHOUT COMPLICATIONS Status: C hronic Qualifiers: Diabetes mellitus alf insulin use: with long term care pharmacist use Diabetes mellitus complication status: with kidney complications Chronic kidney disease stage: on chronic dialysis (10) Dyslipidemia Code(s): E78.5 - HYPERLIPIDEMIA, UNSPECIFIED Status: Chronic (11) Mild CAD Code(s): I25.10 - ATHSCL HEART DISEASE OF [place] CORONARY ARTERY W/O ANG PCTRS Status: Chronic (12) History of left below knee amputation Code(s): Z89.512 - ACQUIRED ABSENCE OF LEFT LEG BELOW KNEE Status: Chronic (13) Obesity (BMI 30.0-34.9) Code(s): E66.9 - OBESITY, UNSPECIFIED Status: Chronic - Plan old records reviewed/req Patient has not had any chest pain, his chest pain is resolved since yesterday, his troponin remains chronically elevated, echocardiography has been ordered and result is pending We will consider discharge later on today. His blood pressure runs low and that is why I have discontinued Nitropatch and we will hold his antihypertensive medication this morning and then patient will resume after discharge, necessary patient education about blood pressure medication given to him. We are not discontinuing any blood pressure medication because we are expecting that his blood pressure will go higher side. He will follow-up with his PCP for further adjustment of blood pressure medication. He needs to monitor his blood pressure and keep diary of blood pressure
[2020-04-04] MEDS: Insulin Glargine 20 UNITS in Pre-Filled Syringe 1 EACH SC SCH (09:45)
--- NOTE | 2020-04-04 15:25 | CON ---
DATE OF CONSULTATION: HISTORY OF PRESENT ILLNESS: The patient is a 44-year-old gentleman who presents for evaluation of chest discomfort. This is an unfortunate gentleman with a long history of nonischemic cardiomyopathy. In, 2009. he presented with congestive heart failure. He underwent a cardiac catheterization that revealed a severe decrease in left ventricular systolic function with an estimated ejection fraction 10% to 15%. The patient had normal coronary arteries. The patient also has end-stage renal disease. The patient has been subsequently on medical therapy. He has not been compliant with his followup. The patient has been admitted on several occasions with dyspnea and chest discomfort. He underwent a followup Cardiolite stress test earlier this year, which revealed him to have severe decrease in left ventricular ejection fraction 29% with no evidence of ischemia. The patient was in his usual state of health when he developed substernal chest pain that radiated into his right jaw. This lasted for approximately an hour. He states the chest pain eventually resolved with nitroglycerin. The patient denies having any further chest discomfort. PAST MEDICAL HISTORY: 1. Cardiomyopathy. 2. Hypertension. 3. End-stage renal disease. 4. History of left BKA. 5. Dyslipidemia. 6. Diabetes mellitus. PAST SURGICAL HISTORY: Cholecystectomy, left below-knee amputation, AV fistula placement. MEDICATIONS AT HOME: 1. Aspirin 81 daily. 2. Coreg 25 b.i.d. 3. Norvasc 5 daily. 4. Losartan 100 daily. 5. Crestor 10 at bedtime. 6. Protonix 40 daily. 7. Clonidine 0.3 b.i.d. 8. Renvela 2400 t.i.d. 9. Hydralazine 100 t.i.d. SOCIAL HISTORY: Previous history of illicit drug use. The patient consumes excessive amounts of alcohol. FAMILY HISTORY: Positive family history of heart disease. REVIEW OF SYSTEMS: Ten-point systems otherwise unremarkable. No history of easy bruising or bleeding or bright red blood per rectum. PHYSICAL EXAMINATION: GENERAL: This is an elderly gentleman, who is blind NECK: Full. LUNGS: Clear to auscultation. HEART: Regular rate and rhythm. Normal S1 and S2. ABDOMEN: Distended. EXTREMITIES: He is status post left AKA. He has had multiple AV fistulas. LABORATORY DATA: White blood cell count 4.0, hemoglobin 10.0, hematocrit 30.1, platelets are 91. sodium 132, potassium 4.5, chloride 98, bicarbonate 21, BUN 38, creatinine is 6.6. EKG normal sinus rhythm, first-degree AV block. IMPRESSION: 1. Chest pain suggestive of angina. 2. Cardiomyopathy. 3. End-stage renal disease. 4. Status post left below-knee amputation. 5. History of normal coronary arteries. 6. Dyslipidemia. This gentleman had presented with chest pain suggestive of angina. From a cardiac standpoint, I recommend either repeat stress testing or invasive cardiac catheterization. The patient is adamant that he needs to leave the hospital. If the patient will not remain in the hospital, we will arrange for outpatient followup. The patient should be on Entresto instead of losartan. We would recommend discontinue this medication and starting Entresto in 48 hours. Would also recommend that Plavix be added to his medical regimen for unstable angina. We will follow this patient with you if he remains in the hospital. Job ID: [id number]
[2020-04-04 15:32] VITALS: TEMP 97.7
[2020-04-04 15:53] VITALS: BMI 32.0
--- NOTE | 2020-04-04 16:54 | PDOC.EVN ---
Event Note - Event Note Event Note: Addendum discharge summary Based on cardiology recommendation I have added Plavix 75 mg p.o. daily, Entresto 1 tablet twice daily prescribed to his pharmacy. Patient is strongly advised to start this medication after 48 hours. We have discontinued losartan from his regimen. Medication education given. Patient was recommended to go for cardiac catheterization but patient does not want to go for cardiac catheterization at this point and he will follow up with cardiology as an outpatient basis.
[2020-04-04 17:03] VITALS: BP 120/85
--- NOTE | 2020-04-05 10:45 | DIS ---
DATE OF ADMISSION: 04/03/2020 DATE OF DISCHARGE: 04/04/2020 DISCHARGE DISPOSITION: Home. PRIMARY DISCHARGE DIAGNOSES: Chest pain, ruled out acute coronary syndrome, suspecting from hypertension and volume overload. SECONDARY DISCHARGE DIAGNOSES: 1. End-stage renal disease, on hemodialysis. 2. Anemia of renal disease. 3. Secondary hyperparathyroidism of renal origin. 4. Nonischemic cardiomyopathy. 5. Chronic systolic heart failure. 6. Hypertension, diabetes type 2, dyslipidemia. 7. Chronically elevated troponin. 8. History of peripheral vascular disease and left below-knee amputation. PRIMARY PROCEDURE/OPERATION: Maintenance hemodialysis. RADIOLOGICAL INVESTIGATION: Chest x-ray showed cardiomegaly, pulmonary edema. Echocardiography result is pending. SIGNIFICANT LABORATORY DATA: WBC 4.0, hemoglobin 10.0, platelet 91. 132, creatinine 6.62, albumin 3.4. Troponin 0.064. COVID-19 negative. DISCHARGE MEDICATIONS: The patient will continue all his previous medication prior to admission. 1. Hydralazine 100 mg t.i.d. 2. Aspirin 81 mg daily. 3. Clonidine 0.3 mg b.i.d. 4. Coreg 25 mg b.i.d. 5. Levemir 20 units subcu b.i.d. 6. Losartan 100 mg bedtime. 7. Amlodipine 5 mg daily. 8. Protonix 40 mg at bedtime p.r.n. 9. Reglan 10 mg a.c. and at bedtime p.r.n. 10. Renvela 2400 mg t.i.d. 11. Tramadol 50 mg t.i.d. p.r.n. 12. Vitamin D3 2000 units p.o. daily. 13. Zoloft 150 mg at bedtime. 14. Crestor 10 mg p.o. at bedtime. CONTRAINDICATION: None. CODE STATUS: Full code. INPATIENT SUPER[employer]OR [employer]ATION SERVICE: None. ALLERGIES: NO KNOWN DRUG ALLERGIES. DISCHARGE PLAN: Post hospital, the patient will follow up with primary care physician in one week and he is advised to follow up with Cardiology for further evaluation. HOSPITAL COURSE: A 44-year-old male who was waiting for his regular dialysis. At that time, he was having chest pain which was substernal and radiated to neck and left shoulder, which lasted for few minutes and subsided by itself. Since then, he never had any further chest pain. We kept in the hospital for observation and his troponin remain chronically elevated range. He did not have any further chest pain. We obtained echocardiography as he has history of chronic systolic heart failure, and he never had any recent echocardiography. COVID-19 was negative. When we started all his medication, his blood pressure was running lower side, so we have to hold blood pressure medication while in hospital, but on admission, he was hypertensive. We have not made any change in his medication because we are expecting his blood pressure to go again high, he will continue blood pressure medication if blood pressure is above 120 systolic, he has to monitor blood pressure and keep diary of blood pressure, so he can follow up with his primary care physician for adjustment in one week. Echocardiography result is pending and after that, we will consider discharge. He had conjunctivitis in his both eyes that is why we have treated him with polymyxin B with trimethoprim ophthalmic drops which was prescribed on discharge as well. Job ID: [id number]
== END 2020-04-04 17:10 | disposition home or self-care (01) ==
LOC: ERS 09:11 → ERHOLD 10:55 → 2NO 13:24
PROVIDERS: ADMIT Internal Medicine; ATTEND Internal Medicine
DX: R07.89 Other chest pain (principal); E11.40 Type 2 diabetes mellitus with diabetic neuropathy, unspecified; E11.22 Type 2 diabetes mellitus with diabetic chronic kidney disease; N18.6 End stage renal disease; D63.1 Anemia in chronic kidney disease; N25.81 Secondary hyperparathyroidism of renal origin; I42.8 Other cardiomyopathies; I11.0 Hypertensive heart disease with heart failure; I50.22 Chronic systolic (congestive) heart failure; E78.5 Hyperlipidemia, unspecified; R77.8 Other specified abnormalities of plasma proteins; E11.51 Type 2 diabetes mellitus with diabetic peripheral angiopathy without gangrene; H10.9 Unspecified conjunctivitis; K21.9 Gastro-esophageal reflux disease without esophagitis; I25.10 Atherosclerotic heart disease of native coronary artery without angina pectoris; F41.9 Anxiety disorder, unspecified; F32.9 Major depressive disorder, single episode, unspecified; H54.8 Legal blindness, as defined in USA; F17.220 Nicotine dependence, chewing tobacco, uncomplicated; F12.11 Cannabis abuse, in remission; E11.319 Type 2 diabetes mellitus with unspecified diabetic retinopathy without macular edema; E11.43 Type 2 diabetes mellitus with diabetic autonomic (poly)neuropathy; K31.84 Gastroparesis; J44.9 Chronic obstructive pulmonary disease, unspecified; E66.9 Obesity, unspecified; Z68.32 Body mass index [BMI] 32.0-32.9, adult; Z79.4 Long term (current) use of insulin; Z79.82 Long term (current) use of aspirin; Z79.899 Other long term (current) drug therapy; Z89.512 Acquired absence of left leg below knee; Z99.2 Dependence on renal dialysis; Z20.828 Contact with and (suspected) exposure to other viral communicable diseases
CPT/HCPCS: 71045; 80053 ×2; 80061; 82553; 82962 ×2; 84484 ×2; 85025 ×2; 93005; 93306; 97139 ×2; 99285; G0378 ×3; U0003; 36415; 36416; 87635; 90935; G0257; J1815

== ENCOUNTER 2020-09-27 05:45 | Emergency (ER) | payer MEDICARE, MEDICAID ==
[2020-09-27] MEDS ORDERED: Nitroglycerin 2% Ointment 1 INCH/1 GM Packet ONE (07:00)
[2020-09-27 07:03] LABS: #Basophils 0.1 thou/uL (0.0-0.2); #Eosinphils 0.3 thou/uL (0.0-0.7); #Lymphocytes 2.1 thou/uL (1.20-3.40); #Monocytes 0.5 thou/uL (0.11-0.59); #Neutrophils 3.1 thou/uL (1.40-6.50); %Basophils 0.9 % (0.0-1.0); %Eosinophils 4.2 % (0.0-10.0); %Lymphocytes 34.2 % (21.0-51.0); %Monocytes 8.8 % (0.0-10.0); %Neutrophils 51.8 % (42.0-75.0); Mean Corpuscular HGB CONC 31.9 g/dL (32.0-36.0); Mean Corpuscular Hemoglobin 32.2 pg (27.0-31.0); Mean Platelet Volume 8.7 fL (7.4-10.4); Platelet Count 119 thou/uL (130-400); RBC Distribution Width 14.6 % (11.5-14.5); Red Blood Cell (RBC) Count 3.43 mill/uL (4.70-6.10); White Blood Cell (WBC) Count 6.1 thou/uL (4.8-10.8)
[2020-09-27 07:21] LABS: ALT (SGPT) 9 U/L (8-55); AST (SGOT) 16 U/L (5-34); Albumin 3.7 g/dL (3.5-5.0); Alkaline Phosphatase 53 U/L (40-110); Anion Gap 17 mmol/L (10-20); BUN (Urea Nitrogen) 47 mg/dL (8.9-20.6); Calc. Creatinine Clearance 0 mL/min (70-130); Calcium 9.8 mg/dL (7.8-10.44); Carbon Dioxide 25 mmol/L (22-29); Chloride 98 mmol/L (98-107); Globulin 3.6 g/dL (2.4-3.5); Glucose 162 mg/dL (70-105); Magnesium 2.1 mg/dL (1.6-2.6); Potassium 4.3 mmol/L (3.5-5.1); Protein, Total 7.3 g/dL (6.0-8.3); Sodium 136 mmol/L (136-145)
[2020-09-27 07:44] LABS: CKMB 4.9 ng/mL (0-6.6)
[2020-09-27] MEDS ORDERED: Aspirin Chewable 81 MG TAB ONE (08:23)
[2020-09-27] MEDS ORDERED: methylPREDNISolone Sod Succ/PF 125 MG/2 ML VIAL ONE (08:40)
[2020-09-27] MEDS ORDERED: Albuterol 200 PUFF (6.7GM INHALER) ONE (08:40)
[2020-09-27] MEDS ORDERED: Magnesium 2 GM/50 ML BAG (IN WATER) ONE (08:40)
[2020-09-27 09:19] LABS: Troponin I 0.068 ng/mL (< 0.028)
== END 2020-09-27 10:09 | disposition home or self-care (01) ==
LOC: ERS 05:45
DX: I13.2 Hypertensive heart and chronic kidney disease with heart failure and with stage 5 chronic kidney disease, or end stage renal disease (principal); I50.9 Heart failure, unspecified; R51.9 Headache, unspecified; N18.6 End stage renal disease; E11.22 Type 2 diabetes mellitus with diabetic chronic kidney disease; Z99.2 Dependence on renal dialysis; E03.9 Hypothyroidism, unspecified; E78.5 Hyperlipidemia, unspecified; F17.220 Nicotine dependence, chewing tobacco, uncomplicated; Z79.899 Other long term (current) drug therapy
CPT/HCPCS: 36415; 70450; 71045; 80053; 82553; 83735; 83880; 84484; 85025; 93005; J2930; J3475

== ENCOUNTER 2020-10-07 08:55 | Emergency (ER) | payer MEDICARE, MEDICAID | END 2020-10-07 11:59 | disposition home or self-care (01) | LOC: ERS 08:55 | DX: S09.90XA Unspecified injury of head, initial encounter (principal); I12.0 Hypertensive chronic kidney disease with stage 5 chronic kidney disease or end stage renal disease; E11.22 Type 2 diabetes mellitus with diabetic chronic kidney disease; N18.6 End stage renal disease; H54.7 Unspecified visual loss; Z99.2 Dependence on renal dialysis; E03.9 Hypothyroidism, unspecified; K21.9 Gastro-esophageal reflux disease without esophagitis; E78.5 Hyperlipidemia, unspecified; E66.9 Obesity, unspecified; F17.220 Nicotine dependence, chewing tobacco, uncomplicated; Z79.899 Other long term (current) drug therapy; Z79.4 Long term (current) use of insulin; W01.198A Fall on same level from slipping, tripping and stumbling with subsequent striking against other object, initial encounter; Y92.009 Unspecified place in unspecified non-institutional (private) residence as the place of occurrence of the external cause | CPT/HCPCS: 70450 ==

== ENCOUNTER 2020-10-10 12:24 | Outpatient (CLI) | payer MEDICARE, MEDICAID ==
[2020-10-11 01:48] LABS: SARS-CoV-2 PCR by NAA Not Detected (NotDetected)
== END 2020-10-10 12:25 | disposition home or self-care (01) ==
LOC: LABBT 12:24
PROVIDERS: ATTEND Specialist
DX: Z01.818 Encounter for other preprocedural examination (principal); Z20.822 Contact with and (suspected) exposure to COVID-19; T82.590A Other mechanical complication of surgically created arteriovenous fistula, initial encounter; H54.40 Blindness, one eye, unspecified eye; N18.6 End stage renal disease; Z89.512 Acquired absence of left leg below knee
CPT/HCPCS: 93005; U0003; U0005; 87635; 93010

== ENCOUNTER 2020-10-15 09:20 | Day surgery (SDC) | payer MEDICARE, MEDICAID ==
[2020-10-14 12:16] VITALS: BMI 29.8
[2020-10-15 10:52] LABS: Hemoglobin 10.4 g/dL (14.0-18.0); Mean Corpuscular HGB CONC 31.2 g/dL (32.0-36.0); Mean Corpuscular Hemoglobin 31.4 pg (27.0-31.0); Mean Platelet Volume 9.1 fL (7.4-10.4); Platelet Count 79 thou/uL (130-400); RBC Distribution Width 14.4 % (11.5-14.5); White Blood Cell (WBC) Count 6.4 thou/uL (4.8-10.8)
[2020-10-15 10:53] LABS: #Eosinphils 0.1 thou/uL (0.0-0.7); #Lymphocytes 1.3 thou/uL (1.20-3.40); #Monocytes 0.9 thou/uL (0.11-0.59); #Neutrophils 4.1 thou/uL (1.40-6.50); %Basophils 0.4 % (0.0-1.0); %Eosinophils 2.2 % (0.0-10.0); %Lymphocytes 19.9 % (21.0-51.0); %Monocytes 13.9 % (0.0-10.0); %Neutrophils 63.6 % (42.0-75.0)
[2020-10-15 11:05] LABS: Anion Gap 14 mmol/L (10-20); BUN (Urea Nitrogen) 20 mg/dL (8.9-20.6); Calc. Creatinine Clearance 17 mL/min (70-130); Calcium 9.6 mg/dL (7.8-10.44); Carbon Dioxide 29 mmol/L (22-29); Chloride 97 mmol/L (98-107); Glucose 98 mg/dL (70-105); Potassium 3.4 mmol/L (3.5-5.1); Sodium 137 mmol/L (136-145)
[2020-10-15 11:46] LABS: MDiff Complete? YES; Platelet Morphology Comment Appears Decreased; Polychromasia SLIGHT = 2-3 cells (100X) (0-2/hpf)
[2020-10-15] MEDS ORDERED: Heparin 1,000 UNITS/ML VIAL ONE ×2 (12:12→12:15)
== END 2020-10-15 12:23 | disposition home or self-care (01) ==
LOC: SDC 09:20
PROVIDERS: ATTEND Specialist
DX: N18.6 End stage renal disease (principal); I51.7 Cardiomegaly; R09.89 Other specified symptoms and signs involving the circulatory and respiratory systems; Z53.9 Procedure and treatment not carried out, unspecified reason; Z79.02 Long term (current) use of antithrombotics/antiplatelets; Z79.4 Long term (current) use of insulin; Z79.82 Long term (current) use of aspirin; Z79.899 Other long term (current) drug therapy
CPT/HCPCS: 71045; 80048; 85025; J1644

== ENCOUNTER 2020-12-10 09:35 | Inpatient (IN) | payer MEDICARE, MEDICAID ==
[2020-12-10 10:27] LABS: #Basophils 0.1 thou/uL (0.0-0.2); #Eosinphils 0.5 thou/uL (0.0-0.7); #Monocytes 0.7 thou/uL (0.11-0.59); #Neutrophils 2.8 thou/uL (1.40-6.50); %Eosinophils 8.7 % (0.0-10.0); %Lymphocytes 32.7 % (21.0-51.0); %Monocytes 11.2 % (0.0-10.0); %Neutrophils 46.4 % (42.0-75.0); Hemoglobin 11.4 g/dL (14.0-18.0); Mean Corpuscular HGB CONC 32.2 g/dL (32.0-36.0); Mean Corpuscular Hemoglobin 31.5 pg (27.0-31.0); Mean Corpuscular Volume 97.9 fL (78.0-98.0); Mean Platelet Volume 9.3 fL (7.4-10.4); Platelet Count 106 thou/uL (130-400); RBC Distribution Width 15.3 % (11.5-14.5)
[2020-12-10 11:07] LABS: Anion Gap 23 mmol/L (10-20); BUN (Urea Nitrogen) 50 mg/dL (8.9-20.6); Calc. Creatinine Clearance 16 mL/min (70-130); Calcium 9.9 mg/dL (7.8-10.44); Carbon Dioxide 22 mmol/L (22-29); Chloride 99 mmol/L (98-107); Glucose 154 mg/dL (70-105); Potassium 5.6 mmol/L (3.5-5.1); Sodium 138 mmol/L (136-145)
[2020-12-10] MEDS ORDERED: Phenylephrine 10 MG/ML VIAL ONE ×2 (11:44→11:56)
[2020-12-10] MEDS ORDERED: Fentanyl 100 MCG/2 ML VIAL ONE (11:44)
[2020-12-10] MEDS ORDERED: Propofol 500 MG/50 ML VIAL ONE (11:44)
[2020-12-10] MEDS ORDERED: Midazolam HCl 2 mg/2 ml Vial ONE (11:44)
[2020-12-10] MEDS ORDERED: Ketamine 50 MG/ML (10ML VIAL) ONE (11:44)
[2020-12-10] MEDS ORDERED: Heparin 5,000 UNITS/ML VIAL ONE (11:47)
[2020-12-10] MEDS ORDERED: Bupivacaine PF 0.5% 30 ML VIAL ONE ×2 (11:47→14:30)
[2020-12-10] MEDS ORDERED: Lidocaine 1% w/Epinephrine 1:100K 20 ML VIAL ONE ×2 (11:47→13:09)
[2020-12-10] MEDS ORDERED: Protamine Sulfate 50 MG/5 ML VIAL ONE (11:47)
[2020-12-10] MEDS ORDERED: Calcium Chloride 1 GM/10 ML Abboject SYRINGE ONE (12:14)
[2020-12-10] MEDS ORDERED: Bupivacaine HCl 0.5%/Epinephrine 1:200,000/PF 30 ml Vial ONE (12:14)
[2020-12-10] MEDS ORDERED: PHENYLEPHRINE-NS 100 MCG/ML 10 ML SYRINGE ONE (12:14)
[2020-12-10] MEDS ORDERED: ePHEDrine Sulfate 50 MG/10 ML VIAL ONE (12:14)
[2020-12-10] MEDS ORDERED: EPINEPHrine 1 MG/10 ML Abboject SYRINGE ONE ×2 (13:38→13:41)
[2020-12-10] MEDS ORDERED: EPINEPHrine 1 MG/ML AMP ONE (13:39)
[2020-12-10] MEDS ORDERED: Sodium Bicarb 50 MEQ/50 ML Abboject 8.4% SYRINGE ONE ×2 (13:51→13:55)
[2020-12-10] MEDS ORDERED: Dextrose 50% Abboject 50 ML SYRINGE SLOW IVP PRN (14:04)
[2020-12-10] MEDS ORDERED: Ondansetron PF 4 MG/2 ML Vial IVP PRN (14:04)
[2020-12-10] MEDS ORDERED: Dextrose 5% in Water 1,000 ML IV PRN (14:04)
[2020-12-10] MEDS ORDERED: hydrALAZINE 20 MG/ML VIAL SLOW IVP PRN (14:04)
[2020-12-10] MEDS ORDERED: Ventilator Sedation Protocol 1 EACH FS SCH (14:15)
[2020-12-10] MEDS ORDERED: Morphine 2 MG/ML VIAL SLOW IVP PRN (14:30)
[2020-12-10] MEDS ORDERED: DISCONTINUE PREVIOUS NARCOTIC PAIN MEDICATIONS AND BENZODIAZEPINES FS SCH (14:30)
[2020-12-10] MEDS ORDERED: Propofol 1,000 MG/100 ML VIAL IV PRN (14:30)
[2020-12-10] MEDS ORDERED: Propofol BOLUS 1,000 MG/100 ML VIAL IV PRN (14:30)
[2020-12-10] MEDS ORDERED: Fentanyl BOLUS 250 ML IVPB PRN (14:30)
[2020-12-10 14:33] LABS: Actual Bicarbonate (HCO3a) 20.2 mEq/L (22-28); Base Excess (BEa) -3.5 mEq/L (-2.0 to +3.0); CO2 Tension 32.4 mmHg (35.0-45.0); Carboxyhemoglobin (COHb) 0.6 gm% (0.0-3.0); Hemoglobin (Hb) 12.3 g/dL (14.0-18.0); O2 Tension (PaO2), arterial 244.1 mmHg (80.0-100.0); Potassium - ABG Lab 4.43 mmol/L (3.70-5.30); pH, Arterial 7.41 (7.35-7.45)
[2020-12-10 15:02] LABS: Hemoglobin 11.7 g/dL (14.0-18.0); Mean Corpuscular HGB CONC 32.7 g/dL (32.0-36.0); Mean Corpuscular Hemoglobin 31.9 pg (27.0-31.0); Mean Corpuscular Volume 97.6 fL (78.0-98.0); Mean Platelet Volume 9.6 fL (7.4-10.4); Platelet Count 109 thou/uL (130-400); RBC Distribution Width 15.2 % (11.5-14.5); Red Blood Cell (RBC) Count 3.68 mill/uL (4.70-6.10); White Blood Cell (WBC) Count 7.3 thou/uL (4.8-10.8)
[2020-12-10] MEDS: Fentanyl CADD 100 ML IV SCH ×2 (15:12→23:16)
[2020-12-10] MEDS: Sodium Chloride 0.9% 1,000 ML IV SCH (15:17)
[2020-12-10 15:24] LABS: Anion Gap 30 mmol/L (10-20); BUN (Urea Nitrogen) 52 mg/dL (8.9-20.6); Calc. Creatinine Clearance 16 mL/min (70-130); Calcium 9.4 mg/dL (7.8-10.44); Carbon Dioxide 19 mmol/L (22-29); Chloride 100 mmol/L (98-107); Glucose 284 mg/dL (70-105); Potassium 4.6 mmol/L (3.5-5.1); Sodium 144 mmol/L (136-145)
[2020-12-10 15:34] LABS: Anisocytosis SLIGHT = 6-15 cells (100X) (0-5/hpf); Eosinophils 6 % (0-10); Lymphocytes 46 % (21-51); MDiff Complete? YES; Monocytes 9 % (0-10); Neutrophil 36 % (42-75); Ovalocytes SLIGHT = 2-5 cells (100X) (0-1/hpf); Platelet Morphology Comment Appears Decreased; Polychromasia SLIGHT = 2-3 cells (100X) (0-2/hpf); Reactive Lymphocytes 2 % (0-10)
[2020-12-10 15:49] LABS: CKMB 5.4 ng/mL (0-6.6)
[2020-12-10 16:26] LABS: Puncture Site Arterial Line
[2020-12-10] MEDS: Lorazepam 2 MG/ML VIAL SLOW IVP PRN ×3 (18:28→23:11)
[2020-12-10] MEDS: Amiodarone 450 MG, Admixture Fee 1 EACH in Dextrose 5% in Water 250 ML IVPB SCH (19:42)
[2020-12-10] MEDS ORDERED: Famotidine/PF 20 mg/2ml Vial SLOW IVP SCH (21:00)
[2020-12-10] MEDS: HumaLOG 300 UNITS/3 ML VIAL SC PRN (22:52)
[2020-12-10] MEDS ORDERED: Fentanyl CADD 100 ML ONE (23:01)
[2020-12-11 04:29] LABS: #Eosinphils 0.3 thou/uL (0.0-0.7); #Lymphocytes 1.7 thou/uL (1.20-3.40); #Monocytes 0.6 thou/uL (0.11-0.59); #Neutrophils 3.8 thou/uL (1.40-6.50); %Basophils 0.6 % (0.0-1.0); %Lymphocytes 26.7 % (21.0-51.0); %Monocytes 9.2 % (0.0-10.0); %Neutrophils 59.4 % (42.0-75.0); Hemoglobin 10.6 g/dL (14.0-18.0); Mean Corpuscular Hemoglobin 32.5 pg (27.0-31.0); Mean Corpuscular Volume 95.6 fL (78.0-98.0); Mean Platelet Volume 9.6 fL (7.4-10.4); Platelet Count 90 thou/uL (130-400); RBC Distribution Width 15.3 % (11.5-14.5); Red Blood Cell (RBC) Count 3.26 mill/uL (4.70-6.10); White Blood Cell (WBC) Count 6.4 thou/uL (4.8-10.8)
[2020-12-11 04:47] LABS: Anion Gap 22 mmol/L (10-20); BUN (Urea Nitrogen) 63 mg/dL (8.9-20.6); Calc. Creatinine Clearance 15 mL/min (70-130); Calcium 9.5 mg/dL (7.8-10.44); Carbon Dioxide 25 mmol/L (22-29); Chloride 102 mmol/L (98-107); Glucose 74 mg/dL (70-105); Potassium 4.5 mmol/L (3.5-5.1); Sodium 144 mmol/L (136-145)
[2020-12-11 05:47] LABS: CKMB 5.9 ng/mL (0-6.6)
[2020-12-11 07:05] LABS: Actual Bicarbonate (HCO3a) 24.7 mEq/L (22-28); Base Excess (BEa) 2.3 mEq/L (-2.0 to +3.0); CO2 Tension 30.9 mmHg (35.0-45.0); Calcium, Ionized (arterial) 1.12 mmol/L (1.12-1.30); Carboxyhemoglobin (COHb) 0.5 gm% (0.0-3.0); Hemoglobin (Hb) 11.4 g/dL (14.0-18.0); O2 Tension (PaO2), arterial 144.2 mmHg (80.0-100.0); Potassium - ABG Lab 4.24 mmol/L (3.70-5.30); pH, Arterial 7.52 (7.35-7.45)
[2020-12-11 07:06] LABS: ALV-art Gradient 138.025 mmHg (0-20); Puncture Site Arterial Line
[2020-12-11] MEDS ORDERED: DC Sedation Protocol FS ONE (08:33)
[2020-12-11] MEDS ORDERED: Heparin 10,000 UNITS/ 10 ML VIAL ONE (08:52)
[2020-12-11] MEDS ORDERED: Prevnar 13-Val Conj/PF 0.5 ML SYRINGE IM ONE (09:00)
[2020-12-11] MEDS: Amiodarone 450 MG, Admixture Fee 1 EACH in Dextrose 5% in Water 250 ML IVPB SCH (10:22)
[2020-12-11] MEDS: Sodium Chloride 0.9% 1,000 ML IV SCH (10:22)
[2020-12-11] MEDS ORDERED: traMADol HCl 50 MG TAB PO PRN (15:02)
[2020-12-11] MEDS: Isosorbide Dinitrate 20 MG TAB PO SCH ×2 (17:08→20:40)
[2020-12-11] MEDS: Rosuvastatin 10 MG TAB PO SCH (20:35)
[2020-12-11] MEDS: hydrALAZINE 25 MG TAB PO SCH (20:36)
[2020-12-11] MEDS: Carvedilol 25 MG TAB PO SCH (20:36)
[2020-12-11] MEDS: Sevelamer Carbonate 800 MG TAB PO SCH (20:37)
[2020-12-11] MEDS ORDERED: Rosuvastatin 10 MG TAB PO SCH (21:00)
[2020-12-12] MEDS: Lantus 1000 UNITS/10 ML VIAL SC SCH ×3 (00:41→21:45)
[2020-12-12] MEDS: Amiodarone 450 MG, Admixture Fee 1 EACH in Dextrose 5% in Water 250 ML IVPB SCH (02:05)
[2020-12-12 04:21] LABS: #Eosinphils 0.5 thou/uL (0.0-0.7); #Lymphocytes 1.1 thou/uL (1.20-3.40); #Monocytes 0.7 thou/uL (0.11-0.59); #Neutrophils 4.8 thou/uL (1.40-6.50); %Basophils 0.5 % (0.0-1.0); %Eosinophils 6.7 % (0.0-10.0); %Lymphocytes 15.9 % (21.0-51.0); %Monocytes 10.4 % (0.0-10.0); %Neutrophils 66.6 % (42.0-75.0); Hemoglobin 10.2 g/dL (14.0-18.0); Mean Corpuscular HGB CONC 33.6 g/dL (32.0-36.0); Mean Corpuscular Hemoglobin 32.8 pg (27.0-31.0); Mean Corpuscular Volume 97.7 fL (78.0-98.0); Mean Platelet Volume 9.4 fL (7.4-10.4); Platelet Count 90 thou/uL (130-400); RBC Distribution Width 15.3 % (11.5-14.5); Red Blood Cell (RBC) Count 3.12 mill/uL (4.70-6.10); White Blood Cell (WBC) Count 7.2 thou/uL (4.8-10.8)
[2020-12-12 04:37] LABS: Anion Gap 22 mmol/L (10-20); BUN (Urea Nitrogen) 41 mg/dL (8.9-20.6); Calc. Creatinine Clearance 18 mL/min (70-130); Calcium 9.5 mg/dL (7.8-10.44); Carbon Dioxide 27 mmol/L (22-29); Chloride 93 mmol/L (98-107); Glucose 129 mg/dL (70-105); Potassium 4.5 mmol/L (3.5-5.1); Sodium 137 mmol/L (136-145)
[2020-12-12] MEDS: Sevelamer Carbonate 800 MG TAB PO SCH ×3 (08:43→16:48)
[2020-12-12] MEDS: Carvedilol 25 MG TAB PO SCH ×2 (08:43→22:29)
[2020-12-12] MEDS: Escitalopram Oxalate 10 mg Tablet PO SCH (08:44)
[2020-12-12] MEDS: Aspirin 81 mg Enteric Coated Tablet PO SCH (08:44)
[2020-12-12] MEDS: Cholecalciferol 1,000 UNITS (25 MCG) TAB PO SCH (08:44)
[2020-12-12] MEDS: hydrALAZINE 25 MG TAB PO SCH ×3 (08:44→22:30)
[2020-12-12] MEDS: Isosorbide Dinitrate 20 MG TAB PO SCH ×3 (08:44→22:41)
[2020-12-12] MEDS ORDERED: Amlodipine 5 MG TAB PO SCH (09:00)
[2020-12-12] MEDS ORDERED: Aspirin Chewable 81 MG TAB PO SCH (09:00)
[2020-12-12] MEDS: Amiodarone 200 MG TAB PO SCH ×3 (10:00→22:31)
[2020-12-12] MEDS ORDERED: Fentanyl 100 MCG/2 ML VIAL ONE (10:48)
[2020-12-12 11:15] LABS: SARS-CoV-2 NAA Rapid Test Not Detected (NotDetected)
[2020-12-12] MEDS ORDERED: EPOETIN ALFA-EPBX (ESRD) 4,000 UNIT/ML VIAL SC SCH (17:00)
[2020-12-12] MEDS: Rosuvastatin 10 MG TAB PO SCH (22:29)
[2020-12-13 05:08] LABS: Anion Gap 23 mmol/L (10-20); BUN (Urea Nitrogen) 57 mg/dL (8.9-20.6); Calc. Creatinine Clearance 13 mL/min (70-130); Calcium 9.5 mg/dL (7.8-10.44); Carbon Dioxide 27 mmol/L (22-29); Chloride 91 mmol/L (98-107); Glucose 130 mg/dL (70-105); Potassium 4.6 mmol/L (3.5-5.1); Sodium 136 mmol/L (136-145)
[2020-12-13 05:24] LABS: #Eosinphils 0.4 thou/uL (0.0-0.7); #Lymphocytes 1.3 thou/uL (1.20-3.40); #Monocytes 0.7 thou/uL (0.11-0.59); #Neutrophils 3.4 thou/uL (1.40-6.50); %Basophils 0.4 % (0.0-1.0); %Eosinophils 7.2 % (0.0-10.0); %Lymphocytes 22.3 % (21.0-51.0); %Monocytes 12.4 % (0.0-10.0); %Neutrophils 57.6 % (42.0-75.0); Hemoglobin 9.1 g/dL (14.0-18.0); Mean Corpuscular HGB CONC 32.7 g/dL (32.0-36.0); Mean Corpuscular Hemoglobin 32.1 pg (27.0-31.0); Mean Corpuscular Volume 98.1 fL (78.0-98.0); Platelet Count 91 thou/uL (130-400); RBC Distribution Width 14.8 % (11.5-14.5); Red Blood Cell (RBC) Count 2.84 mill/uL (4.70-6.10)
[2020-12-13 07:47] VITALS: BMI 29.9
[2020-12-13] MEDS: Aspirin 81 mg Enteric Coated Tablet PO SCH (08:32)
[2020-12-13] MEDS: hydrALAZINE 25 MG TAB PO SCH ×3 (08:32→20:51)
[2020-12-13] MEDS: Escitalopram Oxalate 10 mg Tablet PO SCH (08:32)
[2020-12-13] MEDS: Cholecalciferol 1,000 UNITS (25 MCG) TAB PO SCH (08:32)
[2020-12-13] MEDS: Lantus 1000 UNITS/10 ML VIAL SC SCH ×2 (08:33→20:55)
[2020-12-13] MEDS: Isosorbide Dinitrate 20 MG TAB PO SCH ×3 (08:33→20:52)
[2020-12-13] MEDS ORDERED: Heparin 10,000 UNITS/ 10 ML VIAL ONE (08:54)
[2020-12-13] MEDS: Sevelamer Carbonate 800 MG TAB PO SCH ×3 (09:50→17:42)
[2020-12-13] MEDS: Carvedilol 25 MG TAB PO SCH ×2 (09:51→20:52)
[2020-12-13] MEDS: Amiodarone 200 MG TAB PO SCH ×3 (09:51→20:51)
[2020-12-13] MEDS ORDERED: Lidocaine 1% (PF) 30 ML VIAL ONE (12:46)
[2020-12-13] MEDS ORDERED: Gentamicin 80 MG/2 ML VIAL ONE (13:19)
[2020-12-13] MEDS ORDERED: CEFAZOLIN 1 GM VIAL ONE (13:19)
[2020-12-13] MEDS ORDERED: Ketamine 50 MG/ML (10ML VIAL) ONE (13:27)
[2020-12-13] MEDS ORDERED: PROPOFOL 200 MG/20 ML VIAL ONE (13:32)
[2020-12-13] MEDS ORDERED: Midazolam HCl 2 mg/2 ml Vial ONE (13:42)
[2020-12-13] MEDS ORDERED: PROPOFOL 20 ML ONE (13:43)
[2020-12-13] MEDS: Cephalexin 250 MG CAP PO SCH (20:51)
[2020-12-13] MEDS: Rosuvastatin 10 MG TAB PO SCH (20:51)
[2020-12-13] MEDS ORDERED: Cephalexin 250 MG CAP PO SCH (22:00)
[2020-12-14] MEDS: Cephalexin 250 MG CAP PO SCH ×3 (06:10→20:36)
[2020-12-14] MEDS: Isosorbide Dinitrate 20 MG TAB PO SCH ×3 (09:07→19:32)
[2020-12-14] MEDS: hydrALAZINE 25 MG TAB PO SCH ×3 (09:07→19:31)
[2020-12-14] MEDS: Escitalopram Oxalate 10 mg Tablet PO SCH (09:08)
[2020-12-14] MEDS: Sevelamer Carbonate 800 MG TAB PO SCH ×3 (09:08→16:43)
[2020-12-14] MEDS: Amiodarone 200 MG TAB PO SCH ×2 (09:08→19:32)
[2020-12-14] MEDS: Aspirin 81 mg Enteric Coated Tablet PO SCH (09:08)
[2020-12-14] MEDS: Cholecalciferol 1,000 UNITS (25 MCG) TAB PO SCH (09:08)
[2020-12-14] MEDS: Carvedilol 25 MG TAB PO SCH ×2 (09:08→19:32)
[2020-12-14] MEDS: Lantus 1000 UNITS/10 ML VIAL SC SCH ×2 (09:15→20:33)
[2020-12-14 12:07] LABS: Anion Gap 19 mmol/L (10-20); BUN (Urea Nitrogen) 38 mg/dL (8.9-20.6); Calc. Creatinine Clearance 16 mL/min (70-130); Calcium 9.2 mg/dL (7.8-10.44); Carbon Dioxide 28 mmol/L (22-29); Chloride 95 mmol/L (98-107); Glucose 165 mg/dL (70-105); Potassium 4.2 mmol/L (3.5-5.1); Sodium 138 mmol/L (136-145)
[2020-12-14] MEDS: HumaLOG 300 UNITS/3 ML VIAL SC PRN (12:54)
[2020-12-14] MEDS: Rosuvastatin 10 MG TAB PO SCH (19:31)
[2020-12-15] MEDS: Cephalexin 250 MG CAP PO SCH ×3 (05:05→20:56)
[2020-12-15 05:19] LABS: #Eosinphils 0.3 thou/uL (0.0-0.7); #Lymphocytes 1.1 thou/uL (1.20-3.40); #Monocytes 0.6 thou/uL (0.11-0.59); %Basophils 0.3 % (0.0-1.0); %Eosinophils 6.5 % (0.0-10.0); %Lymphocytes 22.5 % (21.0-51.0); %Monocytes 11.3 % (0.0-10.0); %Neutrophils 59.5 % (42.0-75.0); Mean Corpuscular HGB CONC 33.1 g/dL (32.0-36.0); Mean Corpuscular Hemoglobin 32.2 pg (27.0-31.0); Mean Corpuscular Volume 97.4 fL (78.0-98.0); Mean Platelet Volume 8.7 fL (7.4-10.4); Platelet Count 103 thou/uL (130-400); RBC Distribution Width 14.5 % (11.5-14.5); Red Blood Cell (RBC) Count 2.79 mill/uL (4.70-6.10)
[2020-12-15 05:24] LABS: Anion Gap 20 mmol/L (10-20); BUN (Urea Nitrogen) 48 mg/dL (8.9-20.6); Calc. Creatinine Clearance 14 mL/min (70-130); Calcium 9.1 mg/dL (7.8-10.44); Carbon Dioxide 27 mmol/L (22-29); Chloride 94 mmol/L (98-107); Glucose 152 mg/dL (70-105); Magnesium 1.9 mg/dL (1.6-2.6); Potassium 4.6 mmol/L (3.5-5.1); Sodium 136 mmol/L (136-145)
[2020-12-15] MEDS: Sevelamer Carbonate 800 MG TAB PO SCH ×3 (08:46→16:05)
[2020-12-15] MEDS: Aspirin 81 mg Enteric Coated Tablet PO SCH (08:47)
[2020-12-15] MEDS: Cholecalciferol 1,000 UNITS (25 MCG) TAB PO SCH (08:47)
[2020-12-15] MEDS: Amiodarone 200 MG TAB PO SCH ×2 (08:47→20:53)
[2020-12-15] MEDS: Carvedilol 25 MG TAB PO SCH ×2 (08:47→20:57)
[2020-12-15] MEDS: Escitalopram Oxalate 10 mg Tablet PO SCH (08:47)
[2020-12-15] MEDS: hydrALAZINE 25 MG TAB PO SCH ×3 (08:48→20:52)
[2020-12-15] MEDS: Isosorbide Dinitrate 20 MG TAB PO SCH ×3 (08:48→20:53)
[2020-12-15] MEDS: Lantus 1000 UNITS/10 ML VIAL SC SCH ×2 (08:51→20:53)
[2020-12-15] MEDS: HumaLOG 300 UNITS/3 ML VIAL SC PRN (12:08)
[2020-12-15] MEDS: Rosuvastatin 10 MG TAB PO SCH (20:52)
[2020-12-16 05:04] LABS: #Eosinphils 0.4 thou/uL (0.0-0.7); #Lymphocytes 1.4 thou/uL (1.20-3.40); #Monocytes 0.6 thou/uL (0.11-0.59); #Neutrophils 3.3 thou/uL (1.40-6.50); %Basophils 0.4 % (0.0-1.0); %Eosinophils 6.9 % (0.0-10.0); %Lymphocytes 23.8 % (21.0-51.0); %Monocytes 11.2 % (0.0-10.0); %Neutrophils 57.7 % (42.0-75.0); Mean Platelet Volume 8.6 fL (7.4-10.4); Platelet Count 114 thou/uL (130-400); RBC Distribution Width 14.7 % (11.5-14.5); White Blood Cell (WBC) Count 5.7 thou/uL (4.8-10.8)
[2020-12-16 05:08] LABS: Anion Gap 22 mmol/L (10-20); BUN (Urea Nitrogen) 57 mg/dL (8.9-20.6); Calc. Creatinine Clearance 12 mL/min (70-130); Calcium 9.5 mg/dL (7.8-10.44); Carbon Dioxide 26 mmol/L (22-29); Chloride 93 mmol/L (98-107); Glucose 95 mg/dL (70-105); Potassium 4.8 mmol/L (3.5-5.1); Sodium 136 mmol/L (136-145)
[2020-12-16] MEDS: Cephalexin 250 MG CAP PO SCH ×2 (05:46→13:59)
[2020-12-16] MEDS: Sevelamer Carbonate 800 MG TAB PO SCH ×3 (08:41→17:28)
[2020-12-16] MEDS: Escitalopram Oxalate 10 mg Tablet PO SCH (12:25)
[2020-12-16] MEDS: Aspirin 81 mg Enteric Coated Tablet PO SCH (12:25)
[2020-12-16] MEDS: Amiodarone 200 MG TAB PO SCH (12:25)
[2020-12-16] MEDS: Cholecalciferol 1,000 UNITS (25 MCG) TAB PO SCH (12:25)
[2020-12-16] MEDS: Carvedilol 25 MG TAB PO SCH (12:25)
[2020-12-16] MEDS: hydrALAZINE 25 MG TAB PO SCH ×2 (12:26→14:00)
[2020-12-16] MEDS: Isosorbide Dinitrate 20 MG TAB PO SCH ×2 (12:26→14:00)
[2020-12-16] MEDS: Lantus 1000 UNITS/10 ML VIAL SC SCH (12:28)
[2020-12-16 15:03] VITALS: BP 137/63; TEMP 98
[2020-12-18 14:10] LABS: Actual Bicarbonate (HCO3a) 62.4 mEq/L (22-28); Analyzer IN Cardio OR; Base Excess (BEa) 27.7 mEq/L (-2.0 to +3.0); Hemoglobin (Hb) 11.5 g/dL (14.0-18.0); Potassium - ABG Lab 5.38 mmol/L (3.70-5.30)
[2020-12-18 14:10] LABS: Actual Bicarbonate (HCO3a) 47.5 mEq/L (22-28); Analyzer IN Cardio OR; Base Excess (BEa) 22.7 mEq/L (-2.0 to +3.0); CO2 Tension 51.3 mmHg (35.0-45.0); Calcium, Ionized (arterial) 1.19 mmol/L (1.12-1.30); Carboxyhemoglobin (COHb) 0.6 gm% (0.0-3.0); Hemoglobin (Hb) 11.6 g/dL (14.0-18.0); O2 Tension (PaO2), arterial 452.9 mmHg (80.0-100.0); Potassium - ABG Lab 4.99 mmol/L (3.70-5.30)
[2020-12-18 14:11] LABS: pH, Arterial 7.21 (7.35-7.45)
[2020-12-18 14:12] LABS: CO2 Tension 159.6 mmHg (35.0-45.0); O2 Tension (PaO2), arterial 51.5 mmHg (80.0-100.0); Puncture Site Arterial Line
[2020-12-18 14:14] LABS: Puncture Site Arterial Line; pH, Arterial 7.58 (7.35-7.45)
[2020-12-27] MEDS ORDERED: Amiodarone 200 MG TAB PO SCH (21:00)
== END 2020-12-16 18:23 | disposition home health service (06) | DRG 226 ==
LOC: SDC 09:35 → CCU 14:04 → 2NO 12-13 18:05
PROVIDERS: ADMIT Specialist; ATTEND Hospitalist
PROC: 031B0ZF Bypass Right Radial Artery to Lower Arm Vein, Open Approach (ICD-10-PCS; 2020-12-10)
PROC: 06HY33Z Insertion of Infusion Device into Lower Vein, Percutaneous Approach (ICD-10-PCS; 2020-12-10)
PROC: 5A12012 Performance of Cardiac Output, Single, Manual (ICD-10-PCS; 2020-12-10)
PROC: 5A1D70Z Performance of Urinary Filtration, Intermittent, Less than 6 Hours Per Day (ICD-10-PCS; 2020-12-11)
PROC: 0JH608Z Insertion of Defibrillator Generator into Chest Subcutaneous Tissue and Fascia, Open Approach (ICD-10-PCS; principal; 2020-12-13)
PROC: 02HK0KZ Insertion of Defibrillator Lead into Right Ventricle, Open Approach (ICD-10-PCS; 2020-12-13)
DX: I97.711 Intraoperative cardiac arrest during other surgery (principal); N18.6 End stage renal disease; I50.23 Acute on chronic systolic (congestive) heart failure; J96.01 Acute respiratory failure with hypoxia; I13.2 Hypertensive heart and chronic kidney disease with heart failure and with stage 5 chronic kidney disease, or end stage renal disease; I42.8 Other cardiomyopathies; I42.0 Dilated cardiomyopathy; I47.2 Ventricular tachycardia; T82.868A Thrombosis due to vascular prosthetic devices, implants and grafts, initial encounter; R00.1 Bradycardia, unspecified; Z20.822 Contact with and (suspected) exposure to COVID-19; H54.40 Blindness, one eye, unspecified eye; I27.20 Pulmonary hypertension, unspecified; E11.22 Type 2 diabetes mellitus with diabetic chronic kidney disease; E11.51 Type 2 diabetes mellitus with diabetic peripheral angiopathy without gangrene; E11.319 Type 2 diabetes mellitus with unspecified diabetic retinopathy without macular edema; E11.65 Type 2 diabetes mellitus with hyperglycemia; D63.1 Anemia in chronic kidney disease; Z89.512 Acquired absence of left leg below knee; Z79.899 Other long term (current) drug therapy; Z89.411 Acquired absence of right great toe; Z90.49 Acquired absence of other specified parts of digestive tract; Z79.82 Long term (current) use of aspirin; Z99.2 Dependence on renal dialysis; Y83.8 Other surgical procedures as the cause of abnormal reaction of the patient, or of later complication, without mention of misadventure at the time of the procedure; Z79.51 Long term (current) use of inhaled steroids
CPT/HCPCS: 0240U; 33249; 36416; 71045; 76942; 80048; 82553; 82805; 83735; 83880; 84443; 84484; 85025; 90935; 94002; 94003; 94640; 97139; C1777; C1786; G0257; J0171; J0282; J0690; J1580; J1642; J1644; J1815; J2001; J2060; J2250; J2370; J2405; J2704; J2720; J3010; J7070; J7620; S0020; S0028

== ENCOUNTER → 2021-01-16 | Day surgery (SDC) | payer MEDICARE, MEDICAID ==
[2021-01-14 08:37] VITALS: BMI 29.6
[~2021-01-16] MED LIST: Iopamidol 300 61% 100 ML VIAL FS ONE
== END ==
LOC: SPEC 07:41
PROVIDERS: ATTEND Specialist
PROC: B51W1ZZ Fluoroscopy of Dialysis Shunt/Fistula using Low Osmolar Contrast (ICD-10-PCS; principal; 2021-01-16)
DX: T82.898A Other specified complication of vascular prosthetic devices, implants and grafts, initial encounter (principal); I13.2 Hypertensive heart and chronic kidney disease with heart failure and with stage 5 chronic kidney disease, or end stage renal disease; E11.22 Type 2 diabetes mellitus with diabetic chronic kidney disease; N18.6 End stage renal disease; I50.9 Heart failure, unspecified; D63.1 Anemia in chronic kidney disease; E78.5 Hyperlipidemia, unspecified; J45.909 Unspecified asthma, uncomplicated; I42.9 Cardiomyopathy, unspecified; I25.10 Atherosclerotic heart disease of native coronary artery without angina pectoris; K21.9 Gastro-esophageal reflux disease without esophagitis; E11.43 Type 2 diabetes mellitus with diabetic autonomic (poly)neuropathy; K31.84 Gastroparesis; Z79.02 Long term (current) use of antithrombotics/antiplatelets; Z79.4 Long term (current) use of insulin; Z79.82 Long term (current) use of aspirin; Z79.899 Other long term (current) drug therapy; Z99.2 Dependence on renal dialysis; Z95.810 Presence of automatic (implantable) cardiac defibrillator
CPT/HCPCS: 36901; 76937; Q9967

== ENCOUNTER 2021-03-06 10:46 | Outpatient (CLI) | payer MEDICARE, MEDICAID | END 2021-03-06 10:47 | disposition home or self-care (01) | LOC: RAD-FRANK 10:46 | PROVIDERS: ATTEND Nurse Practitioner Family | DX: M79.642 Pain in left hand (principal) ==

== ENCOUNTER 2021-04-04 11:10 | Inpatient (IN) | payer MEDICARE, MEDICAID ==
[~2021-04-04 11:10] MED LIST changes: +Heparin 1,000 UNITS/ML VIAL ONE
[2021-04-04 12:50] LABS: #Basophils 0.1 thou/uL (0.0-0.2); #Eosinphils 0.3 thou/uL (0.0-0.7); #Lymphocytes 2.1 thou/uL (1.20-3.40); #Monocytes 0.6 thou/uL (0.11-0.59); #Neutrophils 3.3 thou/uL (1.40-6.50); %Basophils 0.9 % (0.0-1.0); %Lymphocytes 32.8 % (21.0-51.0); %Monocytes 9.6 % (0.0-10.0); %Neutrophils 52.6 % (42.0-75.0); Mean Corpuscular HGB CONC 33.8 g/dL (32.0-36.0); Mean Corpuscular Hemoglobin 33.3 pg (27.0-31.0); Mean Corpuscular Volume 98.5 fL (78.0-98.0); Mean Platelet Volume 8.7 fL (7.4-10.4); Platelet Count 96 thou/uL (130-400); RBC Distribution Width 13.5 % (11.5-14.5); White Blood Cell (WBC) Count 6.3 thou/uL (4.8-10.8)
[2021-04-04 13:17] LABS: ALT (SGPT) 17 U/L (8-55); AST (SGOT) 20 U/L (5-34); Albumin 3.3 g/dL (3.5-5.0); Alkaline Phosphatase 66 U/L (40-110); Anion Gap 21 mmol/L (10-20); BUN (Urea Nitrogen) 71 mg/dL (8.9-20.6); Bilirubin, Total 0.8 mg/dL (0.2-1.2); Calc. Creatinine Clearance 0 mL/min (70-130); Calcium 8.9 mg/dL (7.8-10.44); Carbon Dioxide 17 mmol/L (22-29); Chloride 99 mmol/L (98-107); Globulin 3.9 g/dL (2.4-3.5); Glucose 247 mg/dL (70-105); Potassium 4.4 mmol/L (3.5-5.1); Protein, Total 7.2 g/dL (6.0-8.3); Sodium 133 mmol/L (136-145)
[2021-04-04] MEDS ORDERED: Activase 2 MG VIAL CATH SCH (14:45)
[2021-04-04] MEDS ORDERED: Sterile Water 10 ML VIAL IVP SCH (14:45)
[2021-04-04] MEDS ORDERED: hydrALAZINE 25 MG TAB PO SCH (15:00)
[2021-04-04] MEDS ORDERED: Lidocaine 1% PF 5 ML VIAL ONE (17:37)
[2021-04-04] MEDS ORDERED: Dextrose 5% in Water 1,000 ML IV PRN (19:05)
[2021-04-04] MEDS ORDERED: HumaLOG 300 UNITS/3 ML VIAL SC PRN ×2 (19:05)
[2021-04-04] MEDS ORDERED: Dextrose 50% Abboject 50 ML SYRINGE SLOW IVP PRN (19:05)
[2021-04-04] MEDS ORDERED: hydrALAZINE 20 MG/ML VIAL SLOW IVP PRN (19:07)
[2021-04-04] MEDS ORDERED: Ondansetron PF 4 MG/2 ML Vial IVP PRN (19:08)
[2021-04-04] MEDS ORDERED: Ondansetron ODT 4 MG TAB PO PRN (19:08)
[2021-04-04] MEDS ORDERED: Acetaminophen 650 MG Suppository PR PRN (19:08)
[2021-04-04] MEDS ORDERED: Acetaminophen 325 MG TAB PO PRN (19:08)
[2021-04-04] MEDS ORDERED: Senokot S 8.6-50 MG TAB PO PRN (19:08)
[2021-04-04] MEDS: Nicotine 14 MG PATCH TD SCH (21:28)
[2021-04-05] MEDS ORDERED: FLU VACC QS2021-22(6MOS UP)/PF 60 MCG/0.5 ML SYRINGE IM ONE (09:00)
[2021-04-05 09:38] LABS: HBSAg Index 0.42 S/CO (0-0.99); Hep B Surf Ag Non-Reactive S/CO (NonReactive)
[2021-04-05 09:40] LABS: HBSAB Concentration 146.32 mIU/mL; Hep B Surf AB Reactive (NonReactive)
[2021-04-05] MEDS ORDERED: Heparin 10,000 UNITS/ 10 ML VIAL ONE (10:20)
[2021-04-05] MEDS ORDERED: Calcium Carbonate 500 MG ChewTAB PO PRN (11:08)
[2021-04-05] MEDS ORDERED: Sevelamer Carbonate 800 MG TAB PO SCH (12:00)
[2021-04-05] MEDS ORDERED: Sterile Water 10 ML VIAL IVP SCH (13:00)
[2021-04-05] MEDS ORDERED: Activase 2 MG VIAL CATH SCH (13:00)
[2021-04-05] MEDS: Sevelamer Carbonate 800 MG TAB PO SCH ×2 (13:03→17:12)
[2021-04-05] MEDS ORDERED: CEFAZOLIN 2 GM in Premix Bag 1 BAG IVPB SCH (14:00)
[2021-04-05 16:22] LABS: SARS-CoV-2 PCR by NAA Not Detected (NotDetected)
[2021-04-05] MEDS: Isosorbide Dinitrate 20 MG TAB PO SCH ×2 (17:12→21:42)
[2021-04-05] MEDS ORDERED: traMADol HCl 50 MG TAB PO PRN (17:59)
[2021-04-05] MEDS ORDERED: Morphine 4 MG/ML VIAL SLOW IVP PRN (18:00)
[2021-04-05] MEDS: Nicotine 14 MG PATCH TD SCH (21:42)
[2021-04-05] MEDS: Carvedilol 25 MG TAB PO SCH (21:42)
[2021-04-05] MEDS: Sacubitril 49 MG/Valsartan 51 MG TABLET PO SCH (21:42)
[2021-04-05] MEDS: Rosuvastatin 10 MG TAB PO SCH (21:42)
[2021-04-06] MEDS: Sevelamer Carbonate 800 MG TAB PO SCH ×3 (08:09→18:35)
[2021-04-06] MEDS ORDERED: Clopidogrel Bisulfate 75 MG TAB PO SCH (09:00)
[2021-04-06] MEDS ORDERED: Heparin 10,000 UNITS/ 10 ML VIAL ONE (09:15)
[2021-04-06 14:43] LABS: #Eosinphils 0.1 thou/uL (0.0-0.7); #Lymphocytes 1.6 thou/uL (1.20-3.40); #Monocytes 0.7 thou/uL (0.11-0.59); #Neutrophils 2.5 thou/uL (1.40-6.50); %Basophils 0.7 % (0.0-1.0); %Eosinophils 2.4 % (0.0-10.0); %Lymphocytes 32.6 % (21.0-51.0); %Monocytes 14.1 % (0.0-10.0); %Neutrophils 50.1 % (42.0-75.0); Hemoglobin 11.3 g/dL (14.0-18.0); Mean Corpuscular HGB CONC 33.9 g/dL (32.0-36.0); Mean Corpuscular Hemoglobin 33.2 pg (27.0-31.0); Mean Corpuscular Volume 97.9 fL (78.0-98.0); Mean Platelet Volume 9.4 fL (7.4-10.4); Platelet Count 90 thou/uL (130-400); RBC Distribution Width 13.2 % (11.5-14.5); Red Blood Cell (RBC) Count 3.42 mill/uL (4.70-6.10)
[2021-04-06 14:58] LABS: Anion Gap 23 mmol/L (10-20); BUN (Urea Nitrogen) 89 mg/dL (8.9-20.6); Calc. Creatinine Clearance 8 mL/min (70-130); Calcium 9.4 mg/dL (7.8-10.44); Carbon Dioxide 19 mmol/L (22-29); Chloride 96 mmol/L (98-107); Glucose 186 mg/dL (70-105); Potassium 4.2 mmol/L (3.5-5.1); Sodium 134 mmol/L (136-145)
[2021-04-06 15:36] LABS: Phosphorus 9.4 mg/dL (2.3-4.7)
[2021-04-06] MEDS ORDERED: Loperamide HCl 2 MG CAP PO PRN (17:26)
[2021-04-06] MEDS: Aspirin Chewable 81 MG TAB PO SCH (18:02)
[2021-04-06] MEDS: Carvedilol 25 MG TAB PO SCH ×2 (18:02→21:49)
[2021-04-06] MEDS: Sacubitril 49 MG/Valsartan 51 MG TABLET PO SCH ×2 (18:03→21:49)
[2021-04-06] MEDS: Isosorbide Dinitrate 20 MG TAB PO SCH ×2 (18:03→21:49)
[2021-04-06] MEDS: Cholecalciferol 1,000 UNITS (25 MCG) TAB PO SCH (18:03)
[2021-04-06] MEDS: Rosuvastatin 10 MG TAB PO SCH (21:49)
[2021-04-06] MEDS: Nicotine 14 MG PATCH TD SCH (21:49)
[2021-04-07] MEDS: Aspirin Chewable 81 MG TAB PO SCH (08:31)
[2021-04-07] MEDS: Sevelamer Carbonate 800 MG TAB PO SCH ×4 (08:31→17:12)
[2021-04-07] MEDS: Isosorbide Dinitrate 20 MG TAB PO SCH ×3 (08:31→14:59)
[2021-04-07] MEDS: Sacubitril 49 MG/Valsartan 51 MG TABLET PO SCH ×2 (08:31→12:20)
[2021-04-07] MEDS: Carvedilol 25 MG TAB PO SCH ×2 (08:31→12:19)
[2021-04-07] MEDS: Cholecalciferol 1,000 UNITS (25 MCG) TAB PO SCH (08:31)
[2021-04-07] MEDS ORDERED: Ketamine 50 MG/ML (10ML VIAL) ONE (09:31)
[2021-04-07] MEDS ORDERED: Fentanyl 100 MCG/2 ML VIAL ONE ×2 (09:31→13:04)
[2021-04-07] MEDS ORDERED: Midazolam HCl 2 mg/2 ml Vial ONE ×2 (09:31→13:04)
[2021-04-07] MEDS ORDERED: Lidocaine 1% w/Epinephrine 1:100K 20 ML VIAL ONE (09:41)
[2021-04-07] MEDS ORDERED: Bupivacaine PF 0.5% 30 ML VIAL ONE (09:41)
[2021-04-07] MEDS ORDERED: Heparin 5,000 UNITS/ML VIAL ONE (09:41)
[2021-04-07] MEDS ORDERED: Heparin 10,000 UNITS/ 10 ML VIAL ONE ×2 (09:41→10:24)
[2021-04-07] MEDS ORDERED: Protamine Sulfate 50 MG/5 ML VIAL ONE (09:41)
[2021-04-07] MEDS ORDERED: Sodium Chloride 0.9% 20 ML ONE (09:41)
[2021-04-07] MEDS ORDERED: Bupivacaine HCl 0.5%/Epinephrine 1:200,000/PF 30 ml Vial ONE (10:04)
[2021-04-07] MEDS ORDERED: ePHEDrine 50 MG/ML VIAL ONE (10:04)
[2021-04-07] MEDS ORDERED: Ioversol 68 % 50 ML VIAL ONE (10:19)
[2021-04-07] MEDS: Rosuvastatin 10 MG TAB PO SCH (12:19)
[2021-04-07] MEDS: Nicotine 14 MG PATCH TD SCH (12:19)
[2021-04-07] MEDS ORDERED: Sodium Chloride 0.9% 250 ML IV SCH (17:00)
[2021-04-07 17:20] LABS: #Eosinphils 0.1 thou/uL (0.0-0.7); #Lymphocytes 1.4 thou/uL (1.20-3.40); #Monocytes 0.7 thou/uL (0.11-0.59); #Neutrophils 2.5 thou/uL (1.40-6.50); %Basophils 0.2 % (0.0-1.0); %Eosinophils 2.9 % (0.0-10.0); %Lymphocytes 29.1 % (21.0-51.0); %Monocytes 13.8 % (0.0-10.0); Hemoglobin 10.1 g/dL (14.0-18.0); Mean Corpuscular HGB CONC 33.6 g/dL (32.0-36.0); Mean Corpuscular Hemoglobin 32.9 pg (27.0-31.0); Mean Platelet Volume 8.7 fL (7.4-10.4); Platelet Count 95 thou/uL (130-400); Red Blood Cell (RBC) Count 3.07 mill/uL (4.70-6.10); White Blood Cell (WBC) Count 4.7 thou/uL (4.8-10.8)
[2021-04-07 17:45] LABS: Anion Gap 18 mmol/L (10-20); BUN (Urea Nitrogen) 39 mg/dL (8.9-20.6); Calc. Creatinine Clearance 12 mL/min (70-130); Calcium 8.5 mg/dL (7.8-10.44); Carbon Dioxide 21 mmol/L (22-29); Chloride 103 mmol/L (98-107); Glucose 146 mg/dL (70-105); Potassium 3.7 mmol/L (3.5-5.1); Sodium 138 mmol/L (136-145)
[2021-04-08 06:02] VITALS: BMI 27.9
[2021-04-08 07:07] LABS: Hemoglobin 9.3 g/dL (14.0-18.0); Mean Corpuscular HGB CONC 34.1 g/dL (32.0-36.0); Platelet Count 73 thou/uL (130-400); RBC Distribution Width 12.9 % (11.5-14.5); Red Blood Cell (RBC) Count 2.81 mill/uL (4.70-6.10); White Blood Cell (WBC) Count 4.4 thou/uL (4.8-10.8)
[2021-04-08] MEDS: Aspirin Chewable 81 MG TAB PO SCH (08:07)
[2021-04-08] MEDS: Cholecalciferol 1,000 UNITS (25 MCG) TAB PO SCH (08:07)
[2021-04-08] MEDS: Isosorbide Dinitrate 20 MG TAB PO SCH ×2 (08:07→14:56)
[2021-04-08] MEDS: Carvedilol 25 MG TAB PO SCH (08:07)
[2021-04-08] MEDS: Sacubitril 49 MG/Valsartan 51 MG TABLET PO SCH (08:07)
[2021-04-08] MEDS: Sevelamer Carbonate 800 MG TAB PO SCH ×2 (08:07→12:33)
[2021-04-08 08:51] LABS: Band 3 % (5-11); Eosinophils 5 % (0-10); Lymphocytes 20 % (21-51); MDiff Complete? YES; Monocytes 15 % (0-10); Neutrophil 56 % (42-75); RBC Morphology Normal
[2021-04-08] MEDS ORDERED: EPOETIN ALFA-EPBX (ESRD) 4,000 UNIT/ML VIAL SC SCH (09:00)
[2021-04-08 13:03] VITALS: TEMP 98.1
[2021-04-08 14:54] VITALS: BP 137/84
== END 2021-04-08 15:11 | disposition home or self-care (01) | DRG 264 ==
LOC: ERS 11:10 → T4-B 18:03 → OBSVTOIN 04-07 14:25
PROVIDERS: ADMIT Internal Medicine; ATTEND Internal Medicine
PROC: 06HY33Z Insertion of Infusion Device into Lower Vein, Percutaneous Approach (ICD-10-PCS; 2021-04-04)
PROC: 031B0ZF Bypass Right Radial Artery to Lower Arm Vein, Open Approach (ICD-10-PCS; principal; 2021-04-07)
PROC: 06HM33Z Insertion of Infusion Device into Right Femoral Vein, Percutaneous Approach (ICD-10-PCS; 2021-04-07)
PROC: 0JH60XZ Insertion of Tunneled Vascular Access Device into Chest Subcutaneous Tissue and Fascia, Open Approach (ICD-10-PCS; 2021-04-07)
PROC: 5A1D70Z Performance of Urinary Filtration, Intermittent, Less than 6 Hours Per Day (ICD-10-PCS; 2021-04-07)
DX: T82.590A Other mechanical complication of surgically created arteriovenous fistula, initial encounter (principal); N18.6 End stage renal disease; I13.2 Hypertensive heart and chronic kidney disease with heart failure and with stage 5 chronic kidney disease, or end stage renal disease; I50.22 Chronic systolic (congestive) heart failure; I42.8 Other cardiomyopathies; I48.20 Chronic atrial fibrillation, unspecified; E87.1 Hypo-osmolality and hyponatremia; K92.1 Melena; E78.00 Pure hypercholesterolemia, unspecified; F41.9 Anxiety disorder, unspecified; F32.A Depression, unspecified; D63.1 Anemia in chronic kidney disease; E11.22 Type 2 diabetes mellitus with diabetic chronic kidney disease; I27.20 Pulmonary hypertension, unspecified; M79.81 Nontraumatic hematoma of soft tissue; I25.10 Atherosclerotic heart disease of native coronary artery without angina pectoris; J44.9 Chronic obstructive pulmonary disease, unspecified; Z20.822 Contact with and (suspected) exposure to COVID-19; Y83.8 Other surgical procedures as the cause of abnormal reaction of the patient, or of later complication, without mention of misadventure at the time of the procedure; E83.39 Other disorders of phosphorus metabolism; Z89.512 Acquired absence of left leg below knee; Z79.82 Long term (current) use of aspirin; Z79.4 Long term (current) use of insulin; Z95.810 Presence of automatic (implantable) cardiac defibrillator; Z79.899 Other long term (current) drug therapy; Z89.421 Acquired absence of other right toe(s); Z98.890 Other specified postprocedural states
CPT/HCPCS: 36415; 36416; 36901; 74176; 76000; 76937; 80048; 80053; 83970; 84100; 85025; 86706; 87324; 87340; 87449; 90935; 93005; 93010; 96374; C1752; G0257; G0378; J1642; J1644; J1815; J2250; J2270; J2720; J2997; J3010; J3490; J7030; L8670; Q5105; Q9967; S0020; U0003; U0005

== ENCOUNTER 2021-06-08 05:46 | Emergency (ER) | payer MEDICARE, MEDICAID | END 2021-06-08 08:05 | disposition home or self-care (01) | LOC: ERS 05:46 | DX: R19.7 Diarrhea, unspecified (principal); I10 Essential (primary) hypertension; E11.9 Type 2 diabetes mellitus without complications; E78.5 Hyperlipidemia, unspecified; E03.9 Hypothyroidism, unspecified; K21.9 Gastro-esophageal reflux disease without esophagitis; E66.9 Obesity, unspecified; Z79.4 Long term (current) use of insulin | CPT/HCPCS: 99284 ==

== ENCOUNTER 2021-12-08 10:50 | Emergency (ER) | payer MEDICARE, MEDICAID ==
[2021-12-08 11:43] LABS: #Eosinphils 0.6 thou/uL (0.0-0.7); #Lymphocytes 1.7 thou/uL (1.20-3.40); #Monocytes 0.9 thou/uL (0.11-0.59); #Neutrophils 3.2 thou/uL (1.40-6.50); %Basophils 0.8 % (0.0-1.0); %Eosinophils 8.8 % (0.0-10.0); %Lymphocytes 26.3 % (21.0-51.0); %Monocytes 14.7 % (0.0-10.0); %Neutrophils 49.5 % (42.0-75.0); Mean Corpuscular HGB CONC 31.8 g/dL (32.0-36.0); Mean Corpuscular Hemoglobin 32.6 pg (27.0-31.0); Platelet Count 85 thou/uL (130-400); RBC Distribution Width 13.9 % (11.5-14.5); Red Blood Cell (RBC) Count 3.98 mill/uL (4.70-6.10); White Blood Cell (WBC) Count 6.4 thou/uL (4.8-10.8)
[2021-12-08 11:50] LABS: INR-International Normal Ratio 1.1; PTT 33.1 sec (22.9-36.1); Prothrombin Time 13.9 sec (12.0-14.7)
[2021-12-08 11:57] LABS: Anion Gap 20 mmol/L (10-20); BUN (Urea Nitrogen) 56 mg/dL (8.9-20.6); Calc. Creatinine Clearance 0 mL/min (70-130); Carbon Dioxide 24 mmol/L (22-29); Chloride 97 mmol/L (98-107); Potassium 6.4 mmol/L (3.5-5.1); Sodium 135 mmol/L (136-145)
[2021-12-08 11:58] LABS: ALT (SGPT) 18 U/L (8-55); AST (SGOT) 21 U/L (5-34); Albumin 3.5 g/dL (3.5-5.0); Alkaline Phosphatase 51 U/L (40-110); Bilirubin, Total 0.6 mg/dL (0.2-1.2); Calcium 9.4 mg/dL (7.8-10.44); Globulin 3.8 g/dL (2.4-3.5); Glucose 176 mg/dL (70-105); Protein, Total 7.3 g/dL (6.0-8.3)
[2021-12-08] MEDS ORDERED: Sodium Bicarb 50 MEQ/50 ML Abboject 8.4% SYRINGE ONE (12:47)
[2021-12-08] MEDS ORDERED: Insulin Regular 300 UNITS/3 ML VIAL ONE (12:47)
[2021-12-08] MEDS ORDERED: Calcium Chloride 1 GM/10 ML Abboject SYRINGE ONE (12:47)
[2021-12-08] MEDS ORDERED: Dextrose 50% Abboject 50 ML SYRINGE ONE (12:48)
== END 2021-12-08 13:55 | disposition left against medical advice (07) ==
LOC: ERS 10:50
DX: T82.590A Other mechanical complication of surgically created arteriovenous fistula, initial encounter (principal); E87.5 Hyperkalemia; E11.9 Type 2 diabetes mellitus without complications; E03.9 Hypothyroidism, unspecified; K21.9 Gastro-esophageal reflux disease without esophagitis; E78.5 Hyperlipidemia, unspecified; F17.220 Nicotine dependence, chewing tobacco, uncomplicated
CPT/HCPCS: 36415; 36416; 80053; 85025; 85610; 85730; 93005; 96365; 96375; J1815; J7999

== ENCOUNTER 2021-12-10 00:43 | Observation (INO) | payer MEDICARE, MEDICAID ==
[2021-12-10] MEDS ORDERED: Morphine 4 MG/ML VIAL ONE (01:15)
[2021-12-10] MEDS ORDERED: Ondansetron PF 4 MG/2 ML Vial ONE (01:15)
[2021-12-10 02:16] LABS: Hemoglobin 12.1 g/dL (14.0-18.0); Mean Corpuscular HGB CONC 32.5 g/dL (32.0-36.0); Mean Corpuscular Hemoglobin 33.3 pg (27.0-31.0); Mean Platelet Volume 8.9 fL (7.4-10.4); Platelet Count 71 thou/uL (130-400); RBC Distribution Width 14.1 % (11.5-14.5); Red Blood Cell (RBC) Count 3.65 mill/uL (4.70-6.10); White Blood Cell (WBC) Count 5.3 thou/uL (4.8-10.8)
[2021-12-10 02:24] LABS: INR-International Normal Ratio 1.2; Prothrombin Time 15.1 sec (12.0-14.7)
[2021-12-10 02:25] LABS: PTT 36.3 sec (22.9-36.1)
[2021-12-10 02:35] LABS: ALT (SGPT) 15 U/L (8-55); AST (SGOT) 16 U/L (5-34); Albumin 3.4 g/dL (3.5-5.0); Alkaline Phosphatase 50 U/L (40-110); Anion Gap 21 mmol/L (10-20); BUN (Urea Nitrogen) 64 mg/dL (8.9-20.6); Bilirubin, Total 0.8 mg/dL (0.2-1.2); Calc. Creatinine Clearance 0 mL/min (70-130); Calcium 9.3 mg/dL (7.8-10.44); Carbon Dioxide 26 mmol/L (22-29); Chloride 96 mmol/L (98-107); Estimated GFR 4; Globulin 3.7 g/dL (2.4-3.5); Glucose 155 mg/dL (70-105); Lipase 8 U/L (8-78); Magnesium 2.2 mg/dL (1.6-2.6); Potassium 6.4 mmol/L (3.5-5.1); Protein, Total 7.1 g/dL (6.0-8.3); Sodium 137 mmol/L (136-145)
[2021-12-10 02:38] LABS: Band 2 % (5-11); Eosinophils 3 % (0-10); Lymphocytes 34 % (21-51); MDiff Complete? YES; Macrocytosis SLIGHT = 6-15 cells (100X) (0-5/hpf); Monocytes 10 % (0-10); Neutrophil 49 % (42-75); Ovalocytes SLIGHT = 2-5 cells (100X) (0-1/hpf); Platelet Morphology Comment Appears Decreased
[2021-12-10] MEDS ORDERED: Sodium Bicarb 50 MEQ/50 ML Abboject 8.4% SYRINGE ONE (03:04)
[2021-12-10] MEDS ORDERED: Insulin Regular 300 UNITS/3 ML VIAL ONE (03:04)
[2021-12-10] MEDS ORDERED: Calcium Chloride 1 GM/10 ML Abboject SYRINGE ONE (03:04)
[2021-12-10] MEDS ORDERED: Dextrose 50% Abboject 50 ML SYRINGE ONE (03:04)
[2021-12-10] MEDS ORDERED: Acetaminophen 325 MG TAB PO PRN (04:09)
[2021-12-10] MEDS ORDERED: HumaLOG 300 UNITS/3 ML VIAL SC PRN ×2 (04:09)
[2021-12-10] MEDS ORDERED: Dextrose 5% in Water 1,000 ML IV PRN (04:09)
[2021-12-10] MEDS ORDERED: Dextrose 50% Abboject 50 ML SYRINGE SLOW IVP PRN (04:09)
[2021-12-10] MEDS ORDERED: Insulin Glargine 30 UNITS/0.3 ML VIAL SC SCH ×2 (09:00→21:00)
[2021-12-10 10:06] LABS: #Basophils 0.1 thou/uL (0.0-0.2); #Eosinphils 0.3 thou/uL (0.0-0.7); #Lymphocytes 1.1 thou/uL (1.20-3.40); #Monocytes 0.5 thou/uL (0.11-0.59); #Neutrophils 1.8 thou/uL (1.40-6.50); %Basophils 1.8 % (0.0-1.0); %Lymphocytes 29.5 % (21.0-51.0); %Monocytes 13.4 % (0.0-10.0); %Neutrophils 47.4 % (42.0-75.0); Hemoglobin 13.8 g/dL (14.0-18.0); Mean Corpuscular HGB CONC 31.2 g/dL (32.0-36.0); Mean Corpuscular Hemoglobin 32.3 pg (27.0-31.0); Mean Platelet Volume 8.7 fL (7.4-10.4); Platelet Count 70 thou/uL (130-400); RBC Distribution Width 14.2 % (11.5-14.5); Red Blood Cell (RBC) Count 4.27 mill/uL (4.70-6.10); White Blood Cell (WBC) Count 3.8 thou/uL (4.8-10.8)
[2021-12-10 10:23] LABS: Anion Gap 17 mmol/L (10-20); BUN (Urea Nitrogen) 24 mg/dL (8.9-20.6); Calc. Creatinine Clearance 19 mL/min (70-130); Calcium 9.1 mg/dL (7.8-10.44); Carbon Dioxide 26 mmol/L (22-29); Chloride 99 mmol/L (98-107); Estimated GFR 10; Glucose 75 mg/dL (70-105); Sodium 138 mmol/L (136-145)
[2021-12-10 10:29] LABS: Troponin I 0.101 ng/mL (< 0.028)
[2021-12-10] MEDS ORDERED: Heparin 1,000 UNITS/ML VIAL ONE (10:50)
[2021-12-10] MEDS ORDERED: Heparin 10,000 UNITS/ 10 ML VIAL ONE (10:52)
[2021-12-10] MEDS ORDERED: Iopamidol-370 76% 500 ML 1 ML ONE (11:02)
[2021-12-10] MEDS: Sevelamer Carbonate 800 MG TAB PO SCH ×3 (11:25→17:05)
[2021-12-10] MEDS: Heparin 5,000 UNITS/ML VIAL SC SCH (11:26)
[2021-12-10] MEDS ORDERED: Clopidogrel Bisulfate 75 MG TAB ONE (11:28)
[2021-12-10] MEDS: Carvedilol 25 MG TAB PO SCH ×2 (11:46→20:50)
[2021-12-10] MEDS: Clopidogrel Bisulfate 75 MG TAB PO SCH (11:47)
[2021-12-10] MEDS: hydrALAZINE 25 MG TAB PO SCH ×3 (11:47→20:48)
[2021-12-10] MEDS: Isosorbide Dinitrate 20 MG TAB PO SCH ×3 (11:47→20:49)
[2021-12-10] MEDS: Sacubitril 49 MG/Valsartan 51 MG TABLET PO SCH ×2 (11:48→20:49)
[2021-12-10] MEDS ORDERED: Activase 2 MG VIAL CATH SCH ×2 (13:15→13:30)
[2021-12-10] MEDS ORDERED: Sterile Water 10 ML VIAL IVP SCH (13:30)
[2021-12-10] MEDS ORDERED: Rosuvastatin 10 MG TAB PO SCH (21:00)
[2021-12-11 08:52] VITALS: BMI 29.5
[2021-12-11] MEDS ORDERED: Folic Acid 1 MG TAB PO SCH (09:00)
[2021-12-11] MEDS: Sevelamer Carbonate 800 MG TAB PO SCH ×2 (12:24→16:00)
[2021-12-11] MEDS: Carvedilol 25 MG TAB PO SCH (12:24)
[2021-12-11] MEDS: Clopidogrel Bisulfate 75 MG TAB PO SCH (12:24)
[2021-12-11] MEDS: Sacubitril 49 MG/Valsartan 51 MG TABLET PO SCH (12:25)
[2021-12-11] MEDS: Isosorbide Dinitrate 20 MG TAB PO SCH ×2 (12:25→16:00)
[2021-12-11] MEDS: Heparin 5,000 UNITS/ML VIAL SC SCH ×2 (12:25→15:21)
[2021-12-11] MEDS: hydrALAZINE 25 MG TAB PO SCH ×2 (12:25→16:00)
[2021-12-11 17:25] VITALS: BP 151/81; TEMP 98.1
== END 2021-12-11 17:45 | disposition home or self-care (01) ==
LOC: ERS 00:43 → ERHOLD 03:32 → 2NO 16:29
PROVIDERS: ADMIT Family Medicine; ATTEND Family Medicine
DX: T82.590A Other mechanical complication of surgically created arteriovenous fistula, initial encounter (principal); I13.2 Hypertensive heart and chronic kidney disease with heart failure and with stage 5 chronic kidney disease, or end stage renal disease; E11.22 Type 2 diabetes mellitus with diabetic chronic kidney disease; N18.6 End stage renal disease; I50.20 Unspecified systolic (congestive) heart failure; K21.9 Gastro-esophageal reflux disease without esophagitis; I42.0 Dilated cardiomyopathy; E11.21 Type 2 diabetes mellitus with diabetic nephropathy; E78.5 Hyperlipidemia, unspecified; E87.5 Hyperkalemia; Z79.02 Long term (current) use of antithrombotics/antiplatelets; Z79.4 Long term (current) use of insulin; Z79.899 Other long term (current) drug therapy; Z99.2 Dependence on renal dialysis; Z89.512 Acquired absence of left leg below knee
CPT/HCPCS: 36556; 36901; 36905; 74177; 80048; 80053; 82553; 82607; 82746; 82962 ×2; 83690; 83735; 84484 ×2; 85025 ×2; 85610; 85730; 93005; 94640; 96374; 96375; 99285; C1725; G0378 ×3; 36415; 36416; 90935; G0257; J1644; J1815; J2270; J2405; J7620; J7999; Q9967

== ENCOUNTER 2022-01-11 05:41 | Observation (INO) | payer MEDICARE, MEDICAID ==
[2022-01-11 06:48] LABS: ALT (SGPT) 12 U/L (8-55); AST (SGOT) 14 U/L (5-34); Albumin 3.5 g/dL (3.5-5.0); Alkaline Phosphatase 46 U/L (40-110); Anion Gap 21 mmol/L (10-20); BUN (Urea Nitrogen) 48 mg/dL (8.9-20.6); Bilirubin, Total 0.3 mg/dL (0.2-1.2); Calc. Creatinine Clearance 0 mL/min (70-130); Calcium 9.2 mg/dL (7.8-10.44); Carbon Dioxide 20 mmol/L (22-29); Chloride 101 mmol/L (98-107); Estimated GFR 6; Globulin 4.1 g/dL (2.4-3.5); Glucose 149 mg/dL (70-105); Potassium 3.9 mmol/L (3.5-5.1); Protein, Total 7.6 g/dL (6.0-8.3); Sodium 138 mmol/L (136-145)
[2022-01-11 06:50] LABS: #Eosinphils 0.2 thou/uL (0.0-0.7); #Lymphocytes 2.1 thou/uL (1.20-3.40); #Neutrophils 3.7 thou/uL (1.40-6.50); %Basophils 0.1 % (0.0-1.0); %Eosinophils 3.2 % (0.0-10.0); %Neutrophils 52.7 % (42.0-75.0); Hemoglobin 12.3 g/dL (14.0-18.0); Mean Corpuscular HGB CONC 31.8 g/dL (32.0-36.0); Mean Corpuscular Hemoglobin 32.1 pg (27.0-31.0); Mean Platelet Volume 8.7 fL (7.4-10.4); Platelet Count 113 thou/uL (130-400); RBC Distribution Width 14.4 % (11.5-14.5); Red Blood Cell (RBC) Count 3.85 mill/uL (4.70-6.10); White Blood Cell (WBC) Count 7.1 thou/uL (4.8-10.8)
[2022-01-11 07:24] LABS: CKMB 11.3 ng/mL (0-6.6)
[2022-01-11] MEDS ORDERED: Ondansetron ODT 4 MG TAB SL PRN (11:00)
[2022-01-11] MEDS ORDERED: Acetaminophen 325 MG TAB PO PRN ×2 (11:00→14:17)
[2022-01-11] MEDS ORDERED: Ondansetron PF 4 MG/2 ML Vial IVP PRN ×2 (11:00→14:17)
[2022-01-11] MEDS ORDERED: Ondansetron ODT 4 MG TAB PO PRN (14:17)
[2022-01-11 15:42] LABS: Troponin I 0.067 ng/mL (< 0.028)
[2022-01-11] MEDS: Sevelamer Carbonate 800 MG TAB PO SCH (16:21)
[2022-01-11] MEDS: Isosorbide Dinitrate 20 MG TAB PO SCH ×2 (16:22→20:22)
[2022-01-11] MEDS: Heparin 5,000 UNITS/ML VIAL SC SCH ×2 (16:22→20:22)
[2022-01-11 16:30] VITALS: BMI 29.4
[2022-01-11 18:31] LABS: Troponin I 0.061 ng/mL (< 0.028)
[2022-01-11] MEDS: Sacubitril 49 MG/Valsartan 51 MG TABLET PO SCH (20:21)
[2022-01-11] MEDS: Carvedilol 25 MG TAB PO SCH (20:22)
[2022-01-11] MEDS: Insulin Glargine 30 UNITS/0.3 ML VIAL SC SCH (20:23)
[2022-01-11] MEDS ORDERED: Rosuvastatin 10 MG TAB PO SCH (21:00)
[2022-01-11] MEDS ORDERED: hydrALAZINE 25 MG TAB PO SCH (21:00)
[2022-01-12 05:00] LABS: #Eosinphils 0.3 thou/uL (0.0-0.7); #Lymphocytes 2.3 thou/uL (1.20-3.40); #Monocytes 0.7 thou/uL (0.11-0.59); #Neutrophils 2.2 thou/uL (1.40-6.50); %Basophils 0.7 % (0.0-1.0); %Eosinophils 5.3 % (0.0-10.0); %Lymphocytes 41.5 % (21.0-51.0); %Monocytes 12.1 % (0.0-10.0); %Neutrophils 40.5 % (42.0-75.0); Hemoglobin 12.1 g/dL (14.0-18.0); Mean Corpuscular HGB CONC 32.3 g/dL (32.0-36.0); Mean Corpuscular Hemoglobin 32.6 pg (27.0-31.0); Mean Platelet Volume 8.8 fL (7.4-10.4); Platelet Count 102 thou/uL (130-400); RBC Distribution Width 14.5 % (11.5-14.5); Red Blood Cell (RBC) Count 3.71 mill/uL (4.70-6.10); White Blood Cell (WBC) Count 5.4 thou/uL (4.8-10.8)
[2022-01-12 05:14] LABS: Anion Gap 21 mmol/L (10-20); BUN (Urea Nitrogen) 58 mg/dL (8.9-20.6); Calc. Creatinine Clearance 11 mL/min (70-130); Calcium 9.3 mg/dL (7.8-10.44); Carbon Dioxide 20 mmol/L (22-29); Chloride 102 mmol/L (98-107); Estimated GFR 5; Glucose 132 mg/dL (70-105); Potassium 4.7 mmol/L (3.5-5.1); Sodium 138 mmol/L (136-145)
[2022-01-12 05:16] LABS: Magnesium 2.1 mg/dL (1.6-2.6)
[2022-01-12 08:17] VITALS: TEMP 97.8
[2022-01-12] MEDS ORDERED: Clopidogrel Bisulfate 75 MG TAB PO SCH (09:00)
[2022-01-12] MEDS: Insulin Glargine 30 UNITS/0.3 ML VIAL SC SCH (09:47)
[2022-01-12] MEDS: Heparin 5,000 UNITS/ML VIAL SC SCH ×2 (09:49→16:47)
[2022-01-12] MEDS: Sevelamer Carbonate 800 MG TAB PO SCH ×3 (09:49→16:49)
[2022-01-12 16:44] VITALS: BP 168/70
[2022-01-12] MEDS: Isosorbide Dinitrate 20 MG TAB PO SCH ×2 (16:46→16:47)
[2022-01-12] MEDS: Carvedilol 25 MG TAB PO SCH (16:46)
[2022-01-12] MEDS: Sacubitril 49 MG/Valsartan 51 MG TABLET PO SCH (16:47)
== END 2022-01-12 19:25 | disposition home or self-care (01) ==
LOC: ERS 05:46 → 2NO 09:04 → INTOOBSV 14:17 → OBSVTOIN 14:17
PROVIDERS: ADMIT Family Medicine; ATTEND Family Medicine
DX: R55 Syncope and collapse (principal); I95.9 Hypotension, unspecified; I13.2 Hypertensive heart and chronic kidney disease with heart failure and with stage 5 chronic kidney disease, or end stage renal disease; E11.22 Type 2 diabetes mellitus with diabetic chronic kidney disease; N18.6 End stage renal disease; I50.22 Chronic systolic (congestive) heart failure; E03.9 Hypothyroidism, unspecified; K21.9 Gastro-esophageal reflux disease without esophagitis; E78.5 Hyperlipidemia, unspecified; F12.11 Cannabis abuse, in remission; Z87.891 Personal history of nicotine dependence; Z79.02 Long term (current) use of antithrombotics/antiplatelets; Z79.4 Long term (current) use of insulin; Z79.899 Other long term (current) drug therapy; Z99.2 Dependence on renal dialysis; Z89.512 Acquired absence of left leg below knee; Z20.822 Contact with and (suspected) exposure to COVID-19
CPT/HCPCS: 70450; 71045; 80048; 80053; 82553; 82962 ×2; 83605; 83735; 84484 ×2; 85025 ×2; 87040; 93005; 93880; 97530; U0003; U0005; 36415; 36416; 90935; 96372; G0257; G0378; J1644; J1815

== ENCOUNTER 2022-01-14 12:52 | Emergency (ER) | payer MEDICARE, OTHER ==
[2022-01-14 14:09] LABS: #Eosinphils 0.2 thou/uL (0.0-0.7); #Lymphocytes 1.8 thou/uL (1.20-3.40); #Monocytes 0.7 thou/uL (0.11-0.59); #Neutrophils 2.5 thou/uL (1.40-6.50); %Basophils 0.4 % (0.0-1.0); %Eosinophils 3.7 % (0.0-10.0); %Lymphocytes 33.8 % (21.0-51.0); %Monocytes 14.1 % (0.0-10.0); Hemoglobin 11.9 g/dL (14.0-18.0); Mean Corpuscular HGB CONC 32.9 g/dL (32.0-36.0); Mean Corpuscular Hemoglobin 32.5 pg (27.0-31.0); Mean Corpuscular Volume 98.6 fL (78.0-98.0); Mean Platelet Volume 8.2 fL (7.4-10.4); Platelet Count 91 thou/uL (130-400); RBC Distribution Width 14.2 % (11.5-14.5); Red Blood Cell (RBC) Count 3.66 mill/uL (4.70-6.10); White Blood Cell (WBC) Count 5.2 thou/uL (4.8-10.8)
[2022-01-14 14:37] LABS: ALT (SGPT) 11 U/L (8-55); AST (SGOT) 15 U/L (5-34); Albumin 3.5 g/dL (3.5-5.0); Alkaline Phosphatase 47 U/L (40-110); Anion Gap 14 mmol/L (10-20); BUN (Urea Nitrogen) 23 mg/dL (8.9-20.6); Bilirubin, Total 0.6 mg/dL (0.2-1.2); Calc. Creatinine Clearance 0 mL/min (70-130); Calcium 9.3 mg/dL (7.8-10.44); Carbon Dioxide 30 mmol/L (22-29); Chloride 96 mmol/L (98-107); Estimated GFR 11; Globulin 3.6 g/dL (2.4-3.5); Glucose 191 mg/dL (70-105); Potassium 3.5 mmol/L (3.5-5.1); Protein, Total 7.1 g/dL (6.0-8.3); Sodium 136 mmol/L (136-145)
== END 2022-01-14 17:05 | disposition home or self-care (01) ==
LOC: ERS 12:52
DX: R41.82 Altered mental status, unspecified (principal); I12.0 Hypertensive chronic kidney disease with stage 5 chronic kidney disease or end stage renal disease; E11.22 Type 2 diabetes mellitus with diabetic chronic kidney disease; N18.6 End stage renal disease; E03.9 Hypothyroidism, unspecified; K21.9 Gastro-esophageal reflux disease without esophagitis; E78.5 Hyperlipidemia, unspecified; F17.220 Nicotine dependence, chewing tobacco, uncomplicated; E66.9 Obesity, unspecified; Z68.45 Body mass index [BMI] 70 or greater, adult; Z99.2 Dependence on renal dialysis; Z79.4 Long term (current) use of insulin; Z79.899 Other long term (current) drug therapy
CPT/HCPCS: 70450; 71045; 80053; 85025; 93005

== ENCOUNTER 2022-07-09 19:07 | Emergency (ER) | payer MEDICARE, MEDICAID | END 2022-07-09 20:20 | disposition home or self-care (01) | LOC: ERS 19:07 | DX: K62.89 Other specified diseases of anus and rectum (principal) | CPT/HCPCS: 36416; 99283 ==

== ENCOUNTER 2022-08-04 19:23 | Emergency (ER) | payer MEDICARE, MEDICAID ==
[2022-08-04 20:29] LABS: #Eosinphils 0.2 thou/uL (0.0-0.7); #Lymphocytes 1.7 thou/uL (1.20-3.40); #Monocytes 0.7 thou/uL (0.11-0.59); #Neutrophils 2.7 thou/uL (1.40-6.50); %Basophils 0.8 % (0.0-1.0); %Eosinophils 4.1 % (0.0-10.0); %Lymphocytes 32.3 % (21.0-51.0); %Monocytes 12.2 % (0.0-10.0); %Neutrophils 50.6 % (42.0-75.0); Hemoglobin 12.3 g/dL (14.0-18.0); Mean Corpuscular HGB CONC 33.7 g/dL (32.0-36.0); Mean Corpuscular Hemoglobin 32.6 pg (27.0-31.0); Mean Corpuscular Volume 96.8 fl (78.0-98.0); Mean Platelet Volume 9.3 fL (7.4-10.4); Platelet Count 88 10x3/uL (130-400); Red Blood Cell (RBC) Count 3.78 mill/uL (4.70-6.10); White Blood Cell (WBC) Count 5.4 10x3/uL (4.8-10.8)
[2022-08-04 20:48] LABS: ALT (SGPT) 9 U/L (8-55); AST (SGOT) 15 U/L (5-34); Albumin 3.5 g/dL (3.5-5.0); Alkaline Phosphatase 73 U/L (40-110); Anion Gap 17 mmol/L (10-20); BUN (Urea Nitrogen) 60 mg/dL (8.9-20.6); Bilirubin, Total 0.9 mg/dL (0.2-1.2); Calc. Creatinine Clearance 0 mL/min (70-130); Calcium 8.6 mg/dL (7.8-10.44); Carbon Dioxide 25 mmol/L (22-29); Chloride 97 mmol/L (98-107); Estimated GFR 6; Globulin 3.9 g/dL (2.4-3.5); Glucose 178 mg/dL (70-105); Potassium 3.7 mmol/L (3.5-5.1); Protein, Total 7.4 g/dL (6.0-8.3); Sodium 135 mmol/L (136-145)
[2022-08-04 21:08] LABS: CKMB 8.1 ng/mL (0-6.6)
== END 2022-08-04 22:30 | disposition home or self-care (01) ==
LOC: ERS 19:23
DX: R55 Syncope and collapse (principal); E11.9 Type 2 diabetes mellitus without complications; E03.9 Hypothyroidism, unspecified; K21.9 Gastro-esophageal reflux disease without esophagitis; E78.5 Hyperlipidemia, unspecified; I10 Essential (primary) hypertension; F17.220 Nicotine dependence, chewing tobacco, uncomplicated; Z79.4 Long term (current) use of insulin
CPT/HCPCS: 36415; 70450; 72125; 80053; 82553; 83605; 84484; 85025; 87040; 93005

== ENCOUNTER 2022-09-08 09:00 | Day surgery (SDC) | payer MEDICARE, MEDICAID ==
[2022-09-07 10:09] VITALS: BMI 27.1
[2022-09-08 10:23] LABS: #Eosinphils 0.2 thou/uL (0.0-0.7); #Lymphocytes 2.3 thou/uL (1.20-3.40); #Monocytes 0.6 thou/uL (0.11-0.59); #Neutrophils 2.3 thou/uL (1.40-6.50); %Basophils 0.2 % (0.0-1.0); %Eosinophils 3.4 % (0.0-10.0); %Lymphocytes 42.3 % (21.0-51.0); %Monocytes 11.8 % (0.0-10.0); %Neutrophils 42.4 % (42.0-75.0); Hemoglobin 12.8 g/dL (14.0-18.0); Mean Corpuscular HGB CONC 31.7 g/dL (32.0-36.0); Mean Corpuscular Hemoglobin 31.4 pg (27.0-31.0); Mean Corpuscular Volume 99.1 fl (78.0-98.0); Mean Platelet Volume 8.5 fL (7.4-10.4); Platelet Count 111 10x3/uL (130-400); RBC Distribution Width 14.1 % (11.5-14.5); Red Blood Cell (RBC) Count 4.07 mill/uL (4.70-6.10); White Blood Cell (WBC) Count 5.3 10x3/uL (4.8-10.8)
[2022-09-08 10:27] LABS: Anion Gap 14 mmol/L (10-20); BUN (Urea Nitrogen) 49 mg/dL (8.9-20.6); Calc. Creatinine Clearance 13 mL/min (70-130); Calcium 9.7 mg/dL (7.8-10.44); Carbon Dioxide 29 mmol/L (22-29); Chloride 97 mmol/L (98-107); Estimated GFR 7; Glucose 146 mg/dL (70-105); Potassium 4.5 mmol/L (3.5-5.1); Sodium 135 mmol/L (136-145)
[2022-09-08] MEDS ORDERED: Propofol 1,000 MG/100 ML VIAL IV ONE (11:00)
[2022-09-08] MEDS ORDERED: Lidocaine 2% PF 5 ML VIAL ONE (11:47)
[2022-09-08] MEDS ORDERED: Heparin 5,000 UNITS/ML VIAL ONE (11:47)
[2022-09-08] MEDS ORDERED: Bupivacaine HCl 0.5%/Epinephrine 1:200,000/PF 30 ml Vial ONE ×2 (11:47→11:50)
[2022-09-08] MEDS ORDERED: Protamine Sulfate 50 MG/5 ML VIAL ONE (11:50)
[2022-09-08] MEDS ORDERED: Iopamidol 0 ML ONE (11:59)
[2022-09-08] MEDS ORDERED: CEFAZOLIN 2 GM VIAL ONE (12:08)
[2022-09-08] MEDS ORDERED: Sodium Chloride 0.9% 100 ML ONE (12:08)
[2022-09-08] MEDS ORDERED: Bupivacaine PF 0.5% 30 ML VIAL ONE (12:09)
[2022-09-08] MEDS ORDERED: PROPOFOL 200 MG/20 ML VIAL ONE (12:17)
[2022-09-08] MEDS ORDERED: ePHEDrine 50 MG/ML VIAL ONE (12:17)
== END 2022-09-08 14:37 | disposition home or self-care (01) ==
LOC: SDC 09:00
PROVIDERS: ATTEND Specialist
PROC: 03WY0JZ Revision of Synthetic Substitute in Upper Artery, Open Approach (ICD-10-PCS; principal; 2022-09-08)
PROC: 05WY0JZ Revision of Synthetic Substitute in Upper Vein, Open Approach (ICD-10-PCS; 2022-09-08)
DX: T82.868A Thrombosis due to vascular prosthetic devices, implants and grafts, initial encounter (principal); I13.2 Hypertensive heart and chronic kidney disease with heart failure and with stage 5 chronic kidney disease, or end stage renal disease; E11.22 Type 2 diabetes mellitus with diabetic chronic kidney disease; N18.6 End stage renal disease; I50.22 Chronic systolic (congestive) heart failure; I44.0 Atrioventricular block, first degree; I42.8 Other cardiomyopathies; Z99.2 Dependence on renal dialysis; Z79.4 Long term (current) use of insulin; Z79.02 Long term (current) use of antithrombotics/antiplatelets; Z79.899 Other long term (current) drug therapy; Y83.2 Surgical operation with anastomosis, bypass or graft as the cause of abnormal reaction of the patient, or of later complication, without mention of misadventure at the time of the procedure
CPT/HCPCS: 80048; 85025; 93005; 93010; C1776; J1644; J2001; J2704; J2720; J3490; Q9967; S0020

== ENCOUNTER 2022-09-16 03:07 | Emergency (ER) | payer MEDICARE, OTHER ==
[2022-09-16 04:20] LABS: #Eosinphils 0.2 thou/uL (0.0-0.7); #Lymphocytes 1.6 thou/uL (1.20-3.40); #Monocytes 0.6 thou/uL (0.11-0.59); #Neutrophils 3.1 thou/uL (1.40-6.50); %Basophils 0.7 % (0.0-1.0); %Eosinophils 3.9 % (0.0-10.0); %Lymphocytes 29.3 % (21.0-51.0); %Neutrophils 56.1 % (42.0-75.0); Hemoglobin 10.2 g/dL (14.0-18.0); Mean Corpuscular HGB CONC 33.7 g/dL (32.0-36.0); Mean Corpuscular Hemoglobin 32.7 pg (27.0-31.0); Mean Corpuscular Volume 97.1 fl (78.0-98.0); Mean Platelet Volume 7.9 fL (7.4-10.4); Platelet Count 113 10x3/uL (130-400); RBC Distribution Width 13.8 % (11.5-14.5); Red Blood Cell (RBC) Count 3.12 mill/uL (4.70-6.10); White Blood Cell (WBC) Count 5.5 10x3/uL (4.8-10.8)
[2022-09-16 04:40] LABS: ALT (SGPT) Less than 7 U/L (8-55); AST (SGOT) 15 U/L (5-34); Acetaminophen Less than 10.0 mcg/mL (10.0-30.0); Albumin 3.2 g/dL (3.5-5.0); Alcohol Less than 10 mg/dL (Less than 10); Alkaline Phosphatase 53 U/L (40-110); Anion Gap 14 mmol/L (10-20); BUN (Urea Nitrogen) 60 mg/dL (8.9-20.6); Bilirubin, Total 0.7 mg/dL (0.2-1.2); Calc. Creatinine Clearance 0 mL/min (70-130); Calcium 8.9 mg/dL (7.8-10.44); Carbon Dioxide 20 mmol/L (22-29); Chloride 102 mmol/L (98-107); Estimated GFR 6; Globulin 3.8 g/dL (2.4-3.5); Glucose 179 mg/dL (70-105); Potassium 4.8 mmol/L (3.5-5.1); Salicylate Less than 8.0 mg/dL (15.0-30.0); Sodium 131 mmol/L (136-145)
[2022-09-16] MEDS ORDERED: Morphine 4 MG/ML VIAL ONE (04:51)
[2022-09-16] MEDS ORDERED: Proctozone-HC 30 GM TUBE TOP SCH (05:30)
== END 2022-09-16 12:09 | disposition home or self-care (01) ==
LOC: ERS 03:07
DX: T65.92XA Toxic effect of unspecified substance, intentional self-harm, initial encounter (principal); E11.9 Type 2 diabetes mellitus without complications; K21.9 Gastro-esophageal reflux disease without esophagitis; E03.9 Hypothyroidism, unspecified; E78.5 Hyperlipidemia, unspecified; E66.9 Obesity, unspecified; Z87.891 Personal history of nicotine dependence; Z79.899 Other long term (current) drug therapy
CPT/HCPCS: 36415; 80053; 80307; 84443; 85025; 93005; J2270

== ENCOUNTER 2023-02-20 16:10 | Emergency (ER) | payer MEDICARE, MEDICAID ==
[2023-02-20 17:28] LABS: #Eosinphils 0.1 thou/uL (0.0-0.7); #Monocytes 0.7 thou/uL (0.11-0.59); #Neutrophils 3.7 thou/uL (1.40-6.50); %Basophils 0.5 % (0.0-1.0); %Eosinophils 1.5 % (0.0-10.0); %Lymphocytes 23.9 % (21.0-51.0); %Monocytes 11.6 % (0.0-10.0); %Neutrophils 62.2 % (42.0-75.0); Hematocrit 36.1 % (42.0-52.0); Hemoglobin 11.2 g/dL (14.0-18.0); Mean Corpuscular Hemoglobin 32.2 pg (27.0-31.0); Mean Corpuscular Volume 103.7 fl (78.0-98.0); Mean Platelet Volume 11.2 fL (7.4-10.4); Platelet Count 130 10x3/uL (130-400); RBC Distribution Width 14.2 % (11.5-14.5); Red Blood Cell (RBC) Count 3.48 mill/uL (4.70-6.10); White Blood Cell (WBC) Count 5.9 10x3/uL (4.8-10.8)
[2023-02-20 17:33] LABS: SARS-CoV-2 NAA Rapid Test Not Detected (NotDetected)
[2023-02-20 17:51] LABS: ALT (SGPT) 8 U/L (8-55); AST (SGOT) 14 U/L (5-34); Albumin 3.2 g/dL (3.5-5.0); Alkaline Phosphatase 45 U/L (40-110); Anion Gap 16 mmol/L (10-20); BUN (Urea Nitrogen) 49 mg/dL (8.9-20.6); Bilirubin, Total 0.6 mg/dL (0.2-1.2); Calc. Creatinine Clearance 0 mL/min (70-130); Calcium 9.1 mg/dL (7.8-10.44); Carbon Dioxide 23 mmol/L (22-29); Chloride 98 mmol/L (98-107); Estimated GFR 8; Globulin 3.1 g/dL (2.4-3.5); Glucose 87 mg/dL (70-105); Lipase 46 U/L (8-78); Potassium 4.1 mmol/L (3.5-5.1); Protein, Total 6.3 g/dL (6.0-8.3); Sodium 133 mmol/L (136-145)
[2023-02-20 17:53] LABS: Troponin I 0.067 ng/mL (< 0.028)
== END 2023-02-20 18:45 | disposition home or self-care (01) ==
LOC: ERS 16:10
DX: S09.90XA Unspecified injury of head, initial encounter (principal); R53.1 Weakness; E11.9 Type 2 diabetes mellitus without complications; E03.9 Hypothyroidism, unspecified; K21.9 Gastro-esophageal reflux disease without esophagitis; E78.5 Hyperlipidemia, unspecified; F17.220 Nicotine dependence, chewing tobacco, uncomplicated; Z79.4 Long term (current) use of insulin; Z79.01 Long term (current) use of anticoagulants; Z79.899 Other long term (current) drug therapy; Z20.822 Contact with and (suspected) exposure to COVID-19; V00.811A Fall from moving wheelchair (powered), initial encounter
CPT/HCPCS: 70450; 71045; 80053; 83690; 84484; 85025; 93005; U0002; 36415

== ENCOUNTER 2023-03-14 13:14 | Emergency (ER) | payer MEDICARE, MEDICAID ==
[2023-03-14 14:09] LABS: #Eosinphils 0.1 thou/uL (0.0-0.7); #Monocytes 0.5 thou/uL (0.11-0.59); #Neutrophils 3.8 thou/uL (1.40-6.50); %Basophils 0.4 % (0.0-1.0); %Eosinophils 2.8 % (0.0-10.0); %Lymphocytes 11.3 % (21.0-51.0); %Monocytes 10.3 % (0.0-10.0); %Neutrophils 74.6 % (42.0-75.0); Hematocrit 33.6 % (42.0-52.0); Mean Corpuscular HGB CONC 32.7 g/dL (32.0-36.0); Mean Corpuscular Hemoglobin 32.2 pg (27.0-31.0); Mean Corpuscular Volume 98.2 fl (78.0-98.0); Mean Platelet Volume 10.5 fL (7.4-10.4); RBC Distribution Width 13.6 % (11.5-14.5); Red Blood Cell (RBC) Count 3.42 mill/uL (4.70-6.10); White Blood Cell (WBC) Count 5.1 10x3/uL (4.8-10.8)
[2023-03-14 14:11] LABS: Platelet Count 113 10x3/uL (130-400)
[2023-03-14 14:37] LABS: ALT (SGPT) 9 U/L (8-55); AST (SGOT) 16 U/L (5-34); Albumin 3.5 g/dL (3.5-5.0); Alkaline Phosphatase 46 U/L (40-110); Anion Gap 19 mmol/L (10-20); BUN (Urea Nitrogen) 59 mg/dL (8.9-20.6); Bilirubin, Total 0.7 mg/dL (0.2-1.2); CK (CPK) 502 U/L (30-200); Calc. Creatinine Clearance 0 mL/min (70-130); Calcium 9.3 mg/dL (7.8-10.44); Carbon Dioxide 24 mmol/L (22-29); Chloride 97 mmol/L (98-107); Estimated GFR 5; Globulin 3.6 g/dL (2.4-3.5); Glucose 181 mg/dL (70-105); Magnesium 2.1 mg/dL (1.6-2.6); Potassium 4.2 mmol/L (3.5-5.1); Protein, Total 7.1 g/dL (6.0-8.3); Sodium 136 mmol/L (136-145)
[2023-03-14 14:41] LABS: Troponin I 0.075 ng/mL (< 0.028)
[2023-03-14 14:43] LABS: SARS-CoV-2 NAA Rapid Test Not Detected (NotDetected)
== END 2023-03-14 17:28 | disposition home or self-care (01) ==
LOC: ERS 13:14
DX: J18.9 Pneumonia, unspecified organism (principal); E11.9 Type 2 diabetes mellitus without complications; E03.9 Hypothyroidism, unspecified; K21.9 Gastro-esophageal reflux disease without esophagitis; E78.5 Hyperlipidemia, unspecified; I10 Essential (primary) hypertension; F17.220 Nicotine dependence, chewing tobacco, uncomplicated; Z79.01 Long term (current) use of anticoagulants; Z20.822 Contact with and (suspected) exposure to COVID-19; Z79.4 Long term (current) use of insulin; Z79.899 Other long term (current) drug therapy
CPT/HCPCS: 0240U; 71045; 80053; 82550; 83735; 84484; 85025; 93005

== ENCOUNTER 2023-04-11 14:53 | Emergency (ER) | payer MEDICARE, MEDICAID ==
[2023-04-11] MEDS ORDERED: fentaNYL 50 mcg/mL 1 mL Vial ONE (15:27)
[2023-04-11] MEDS ORDERED: Boostrix 0.5 ML (Tdap) VIAL (>/=7 yrs of age) ONE (15:28)
[2023-04-11] MEDS ORDERED: CEFAZOLIN 2 GM VIAL ONE (15:28)
[2023-04-11] MEDS ORDERED: Sodium Chloride 0.9% 100 ML ONE (15:28)
[2023-04-11 15:30] LABS: #Eosinphils 0.3 thou/uL (0.0-0.7); #Monocytes 0.6 thou/uL (0.11-0.59); #Neutrophils 5.6 thou/uL (1.40-6.50); %Basophils 0.5 % (0.0-1.0); %Eosinophils 3.4 % (0.0-10.0); %Monocytes 6.4 % (0.0-10.0); %Neutrophils 64.4 % (42.0-75.0); Hematocrit 37.6 % (42.0-52.0); Hemoglobin 12.1 g/dL (14.0-18.0); Mean Corpuscular HGB CONC 32.2 g/dL (32.0-36.0); Mean Corpuscular Hemoglobin 31.7 pg (27.0-31.0); Mean Corpuscular Volume 98.4 fl (78.0-98.0); Mean Platelet Volume 10.8 fL (7.4-10.4); Platelet Count 142 10x3/uL (130-400); RBC Distribution Width 13.8 % (11.5-14.5); Red Blood Cell (RBC) Count 3.82 mill/uL (4.70-6.10); White Blood Cell (WBC) Count 8.8 10x3/uL (4.8-10.8)
[2023-04-11 15:39] LABS: PTT 34.3 sec (22.9-36.1)
[2023-04-11 15:48] LABS: ALT (SGPT) 11 U/L (8-55); AST (SGOT) 17 U/L (5-34); Albumin 4.1 g/dL (3.5-5.0); Alkaline Phosphatase 49 U/L (40-110); Anion Gap 22 mmol/L (10-20); BUN (Urea Nitrogen) 62 mg/dL (8.9-20.6); Bilirubin, Total 0.9 mg/dL (0.2-1.2); CK (CPK) 345 U/L (30-200); Calc. Creatinine Clearance 0 mL/min (70-130); Calcium 9.8 mg/dL (7.8-10.44); Carbon Dioxide 25 mmol/L (22-29); Chloride 96 mmol/L (98-107); Estimated GFR 7; Globulin 3.6 g/dL (2.4-3.5); Glucose 82 mg/dL (70-105); Potassium 4.8 mmol/L (3.5-5.1); Protein, Total 7.7 g/dL (6.0-8.3); Sodium 138 mmol/L (136-145)
== END 2023-04-11 19:27 | disposition home or self-care (01) ==
LOC: ERS 14:53
DX: T25.221A Burn of second degree of right foot, initial encounter (principal); E11.9 Type 2 diabetes mellitus without complications; K21.9 Gastro-esophageal reflux disease without esophagitis; E03.9 Hypothyroidism, unspecified; I10 Essential (primary) hypertension; Z87.891 Personal history of nicotine dependence; Z23 Encounter for immunization; Z79.4 Long term (current) use of insulin; Z79.01 Long term (current) use of anticoagulants; Z79.899 Other long term (current) drug therapy; X11.8XXA Contact with other hot tap-water, initial encounter
CPT/HCPCS: 71045; 73620; 80053; 82550; 83605; 83880; 85025; 85610; 85730; 86850; 86900; 86901; 87040; 90715; 93005; J3010; 90471; 96365; 96375; J3490

== ENCOUNTER 2023-12-15 07:18 | Emergency (ER) | payer MEDICARE, OTHER ==
[2023-12-15 08:36] LABS: #Basophils Less than 0.03 10x3/uL (0.0-0.2); %Basophils 0.3 % (0.0-1.0); %Eosinophils 2.2 % (0.0-10.0); %Lymphocytes 29.2 % (21.0-51.0); %Monocytes 10.9 % (0.0-10.0); %Neutrophils 57.1 % (42.0-75.0); Hematocrit 38.5 % (42.0-52.0); Hemoglobin 12.3 g/dL (14.0-18.0); Mean Corpuscular HGB CONC 31.9 g/dL (32.0-36.0); Mean Corpuscular Hemoglobin 30.9 pg (27.0-31.0); Mean Corpuscular Volume 96.7 fL (78.0-98.0); Mean Platelet Volume 10.9 fL (7.4-10.4); Platelet Count 118 10x3/uL (130-400); Red Blood Cell (RBC) Count 3.98 mill/uL (4.70-6.10)
[2023-12-15 08:57] LABS: Troponin I 0.085 ng/mL (< 0.028)
[2023-12-15 09:09] LABS: ALT (SGPT) 25 U/L (8-55); AST (SGOT) 36 U/L (5-34); Albumin 3.4 g/dL (3.5-5.0); Alkaline Phosphatase 48 U/L (40-110); Anion Gap 24 mmol/L (10-20); BUN (Urea Nitrogen) 97 mg/dL (8.9-20.6); Bilirubin, Total 0.8 mg/dL (0.2-1.2); Calc. Creatinine Clearance 0 mL/min (70-130); Calcium 9.9 mg/dL (7.8-10.44); Carbon Dioxide 19 mmol/L (22-29); Chloride 97 mmol/L (98-107); Estimated GFR 4; Globulin 4.3 g/dL (2.4-3.5); Glucose 108 mg/dL (70-105); Protein, Total 7.7 g/dL (6.0-8.3); Sodium 132 mmol/L (136-145)
[2023-12-15] MEDS ORDERED: CALCIUM GLUC 1 GM/NS 50 ML IV Bag ONE (11:05)
== END 2023-12-15 11:42 | disposition home or self-care (01) ==
LOC: ERS 07:18
DX: E87.5 Hyperkalemia (principal); E11.22 Type 2 diabetes mellitus with diabetic chronic kidney disease; I12.0 Hypertensive chronic kidney disease with stage 5 chronic kidney disease or end stage renal disease; N18.6 End stage renal disease; Z99.2 Dependence on renal dialysis; Z87.891 Personal history of nicotine dependence; Z79.01 Long term (current) use of anticoagulants; Z79.4 Long term (current) use of insulin
CPT/HCPCS: 70450; 71045; 72170; 80053; 84484; 85025; 93005; J0613; 96365

== ENCOUNTER 2024-03-16 23:56 | Emergency (ER) | payer MEDICARE, MEDICAID ==
[2024-03-17] MEDS ORDERED: Orphenadrine Citrate 60 MG/2 ML VIAL ONE (02:15)
[2024-03-17] MEDS ORDERED: HYDROcodone/Acetaminophen 5/325 mg Tablet ONE (02:16)
[2024-03-17] MEDS ORDERED: Orphenadrine Citrate 100 MG ER.TAB ONE (02:59)
== END 2024-03-17 10:29 | disposition home or self-care (01) ==
LOC: ERS 23:56
DX: G89.4 Chronic pain syndrome (principal); M25.512 Pain in left shoulder; M25.511 Pain in right shoulder; I10 Essential (primary) hypertension; Z87.891 Personal history of nicotine dependence; E11.9 Type 2 diabetes mellitus without complications; Z89.022 Acquired absence of left finger(s)
CPT/HCPCS: 82962; J2360; 36416; 99283

== ENCOUNTER 2024-03-20 09:41 | Inpatient (IN) | payer MEDICARE, MEDICAID ==
[2024-03-20] MEDS ORDERED: Calcium Chloride 1 GM/10 ML Abboject SYRINGE ONE (10:40)
[2024-03-20] MEDS ORDERED: Albuterol 2.5 MG (0.5 mL) NEB ONE ×3 (10:58→11:46)
[2024-03-20 11:02] LABS: INR-International Normal Ratio 1.3; PTT 37.4 sec (22.9-36.1); Prothrombin Time 15.7 sec (12.0-14.7)
[2024-03-20 11:12] LABS: #Basophils 0.04 10x3/uL (0.0-0.2); %Basophils 0.8 % (0.0-1.0); %Eosinophils 3.5 % (0.0-10.0); %Lymphocytes 35.2 % (21.0-51.0); %Monocytes 14.4 % (0.0-10.0); %Neutrophils 45.9 % (42.0-75.0); Hemoglobin 12.2 g/dL (14.0-18.0); Mean Corpuscular HGB CONC 31.3 g/dL (32.0-36.0); Mean Corpuscular Hemoglobin 30.4 pg (27.0-31.0); Mean Corpuscular Volume 97.3 fL (78.0-98.0); Mean Platelet Volume 11.9 fL (7.4-10.4); Platelet Count 121 10x3/uL (130-400); RBC Distribution Width 14.7 % (11.5-14.5); Red Blood Cell (RBC) Count 4.01 mill/uL (4.70-6.10)
[2024-03-20 11:35] LABS: Troponin I 0.063 ng/mL (< 0.028)
[2024-03-20] MEDS ORDERED: Albuterol 2.5 MG (3 mL) NEB ONE (11:46)
[2024-03-20 11:50] LABS: ALT (SGPT) 18 U/L (8-55); AST (SGOT) 35 U/L (5-34); Albumin 3.5 g/dL (3.5-5.0); Alkaline Phosphatase 70 U/L (40-110); Anion Gap 28 mmol/L (10-20); Bilirubin, Total 0.6 mg/dL (0.2-1.2); CK (CPK) 2529 U/L (30-200); Calc. Creatinine Clearance 0 mL/min (70-130); Calcium 9.2 mg/dL (7.8-10.44); Carbon Dioxide 16 mmol/L (22-29); Chloride 99 mmol/L (98-107); Estimated GFR 3; Glucose 71 mg/dL (70-105); Magnesium 2.4 mg/dL (1.6-2.6); Potassium 8.3 mmol/L (3.5-5.1); Protein, Total 7.5 g/dL (6.0-8.3); Sodium 135 mmol/L (136-145)
[2024-03-20 11:54] LABS: BUN (Urea Nitrogen) 124 mg/dL (8.9-20.6)
[2024-03-20] MEDS ORDERED: CALCIUM GLUC 1 GM/NS 50 ML IV Bag ONE ×2 (11:57→14:12)
[2024-03-20] MEDS ORDERED: Insulin Regular, Human 100 UNIT/ML 10 ML VIAL ONE (12:07)
[2024-03-20 12:17] LABS: Actual Bicarbonate (HCO3a) 16.3 mEq/L (22-28); Analyzer IN Cardio ER; Base Excess (BEa) -10.7 mEq/L (-2.0 to +3.0); Calcium, Ionized (arterial) 1.15 mmol/L (1.12-1.30); Carboxyhemoglobin (COHb) 0.9 gm% (0.0-3.0); Hematocrit-ABG 36 % (42.0-52.0); Hemoglobin (Hb) 12.2 g/dL (14.0-18.0); O2 Tension (PaO2), arterial 97.7 mmHg (80.0-100.0); pH, Arterial 7.227 (7.35-7.45)
[2024-03-20 12:22] LABS: Puncture Site Right Radial artery
[2024-03-20] MEDS ORDERED: Sodium Bicarb 50 MEQ/50 ML Abboject 8.4% SYRINGE ONE (13:00)
[2024-03-20] MEDS ORDERED: Dextrose 10% in Water 250 ML ONE (13:00)
[2024-03-20] MEDS ORDERED: Insulin Lispro 100 UNIT/ML 10 ML VIAL SC PRN ×2 (13:02)
[2024-03-20] MEDS ORDERED: Acetaminophen 650 MG Suppository PR PRN (13:02)
[2024-03-20] MEDS ORDERED: Glucagon 1 MG/ML KIT IM PRN (13:02)
[2024-03-20] MEDS ORDERED: Dextrose 50% Abboject 50 ML SYRINGE SLOW IVP PRN (13:02)
[2024-03-20] MEDS ORDERED: Dextrose 5% in Water 1,000 ML IV PRN (13:02)
[2024-03-20 13:55] LABS: Hep C Index 0.06 S/CO (0-0.79)
[2024-03-20 14:25] LABS: BUN (Urea Nitrogen) 126 mg/dL (8.9-20.6)
[2024-03-20 14:31] LABS: Anion Gap 28 mmol/L (10-20); Calc. Creatinine Clearance 0 mL/min (70-130); Calcium 9.8 mg/dL (7.8-10.44); Carbon Dioxide 19 mmol/L (22-29); Chloride 98 mmol/L (98-107); Estimated GFR 3; Glucose 91 mg/dL (70-105); Potassium 7.3 mmol/L (3.5-5.1); Sodium 138 mmol/L (136-145)
[2024-03-20 14:52] LABS: Hep B Core Total Ab REACTIVE (NonReactive)
[2024-03-20 14:54] LABS: Hep B Core Total Index 6.03 S/CO (0-0.79); Hep B Surf AB REACTIVE (NonReactive); Hep B Surf Ag NONREACTIVE S/CO (NonReactive); Hep C IgG Ab NONREACTIVE S/CO (NonReactive)
[2024-03-20] MEDS: Isosorbide Dinitrate 20 MG TAB PO SCH (15:00)
[2024-03-20] MEDS: Acetaminophen 325 MG TAB PO SCH (16:00)
[2024-03-20 19:31] LABS: Anion Gap 21 mmol/L (10-20); BUN (Urea Nitrogen) 88 mg/dL (8.9-20.6); Calc. Creatinine Clearance 0 mL/min (70-130); Calcium 9.7 mg/dL (7.8-10.44); Carbon Dioxide 15 mmol/L (22-29); Chloride 104 mmol/L (98-107); Estimated GFR 5; Glucose 35 mg/dL (70-105); Potassium 5.8 mmol/L (3.5-5.1); Sodium 134 mmol/L (136-145)
[2024-03-20] MEDS: Heparin 5,000 UNITS/ML VIAL SC SCH (22:00)
[2024-03-20] MEDS: Carvedilol 25 MG TAB PO SCH (22:03)
[2024-03-20] MEDS: Rosuvastatin 10 MG TAB PO SCH (22:06)
[2024-03-20] MEDS: Pantoprazole DR 40 MG TAB PO SCH (22:07)
[2024-03-21 05:17] VITALS: BMI 29.9
[2024-03-21 06:42] LABS: #Basophils 0.04 10x3/uL (0.0-0.2); %Eosinophils 3.9 % (0.0-10.0); %Lymphocytes 27.5 % (21.0-51.0); %Monocytes 16.4 % (0.0-10.0); %Neutrophils 51.2 % (42.0-75.0); Hematocrit 33.5 % (42.0-52.0); Hemoglobin 10.6 g/dL (14.0-18.0); Mean Corpuscular HGB CONC 31.6 g/dL (32.0-36.0); Mean Corpuscular Volume 94.9 fL (78.0-98.0); Mean Platelet Volume 11.1 fL (7.4-10.4); Platelet Count 113 10x3/uL (130-400); RBC Distribution Width 14.9 % (11.5-14.5); Red Blood Cell (RBC) Count 3.53 mill/uL (4.70-6.10)
[2024-03-21 07:20] LABS: ALT (SGPT) 12 U/L (8-55); AST (SGOT) 23 U/L (5-34); Albumin 2.9 g/dL (3.5-5.0); Alkaline Phosphatase 63 U/L (40-110); Anion Gap 24 mmol/L (10-20); BUN (Urea Nitrogen) 102 mg/dL (8.9-20.6); Bilirubin, Total 0.6 mg/dL (0.2-1.2); Calc. Creatinine Clearance 9 mL/min (70-130); Calcium 9.1 mg/dL (7.8-10.44); Carbon Dioxide 21 mmol/L (22-29); Chloride 101 mmol/L (98-107); Estimated GFR 4; Globulin 3.7 g/dL (2.4-3.5); Glucose 134 mg/dL (70-105); Potassium 6.9 mmol/L (3.5-5.1); Protein, Total 6.6 g/dL (6.0-8.3); Sodium 139 mmol/L (136-145)
[2024-03-21 08:04] VITALS: TEMP 97.5
[2024-03-21] MEDS: EPOETIN ALFA-EPBX (ESRD) 10,000 UNITS/ML VIAL SC SCH (10:25)
[2024-03-21] MEDS ORDERED: Heparin 10,000 UNITS/ 10 ML VIAL ONE (10:33)
[2024-03-21 13:15] LABS: Potassium - ABG Lab 7.84 mmol/L (3.70-5.30)
[2024-03-21 15:15] VITALS: BMI 29.9
== END 2024-03-21 17:13 | disposition home or self-care (01) | DRG 640 ==
LOC: ERS 09:41 → ERHOLD 14:38 → IMCU/EMU 21:02
PROVIDERS: ADMIT Internal Medicine; ATTEND Internal Medicine
PROC: 4A033R1 Measurement of Arterial Saturation, Peripheral, Percutaneous Approach (ICD-10-PCS; principal; 2024-03-20)
PROC: 5A1D70Z Performance of Urinary Filtration, Intermittent, Less than 6 Hours Per Day (ICD-10-PCS; 2024-03-20)
DX: E87.5 Hyperkalemia (principal); N18.6 End stage renal disease; I50.22 Chronic systolic (congestive) heart failure; I13.2 Hypertensive heart and chronic kidney disease with heart failure and with stage 5 chronic kidney disease, or end stage renal disease; E11.22 Type 2 diabetes mellitus with diabetic chronic kidney disease; I25.10 Atherosclerotic heart disease of native coronary artery without angina pectoris; E11.51 Type 2 diabetes mellitus with diabetic peripheral angiopathy without gangrene; D63.1 Anemia in chronic kidney disease; E87.70 Fluid overload, unspecified; D69.6 Thrombocytopenia, unspecified; Z91.158 Patient's noncompliance with renal dialysis for other reason; Z99.2 Dependence on renal dialysis; Z98.890 Other specified postprocedural states; Z83.3 Family history of diabetes mellitus; Z82.49 Family history of ischemic heart disease and other diseases of the circulatory system
CPT/HCPCS: 36415; 36416; 36600; 71045; 80053; 82550; 82805; 83735; 83880; 84443; 84484; 85025; 85610; 85730; 86704; 86706; 86803; 87340; 93005; 94640; 94760; 96365; 96366; 96375; 96376; 99283; J0613; J1644; J1815; J2360; J7611

== ENCOUNTER 2024-04-02 21:59 | Emergency (ER) | payer MEDICARE, MEDICAID ==
[2024-04-02 22:56] LABS: #Basophils 0.03 10x3/uL (0.0-0.2); %Basophils 0.5 % (0.0-1.0); %Eosinophils 4.1 % (0.0-10.0); %Lymphocytes 28.1 % (21.0-51.0); %Monocytes 11.8 % (0.0-10.0); %Neutrophils 55.3 % (42.0-75.0); Hematocrit 36.9 % (42.0-52.0); Hemoglobin 11.3 g/dL (14.0-18.0); Mean Corpuscular HGB CONC 30.6 g/dL (32.0-36.0); Mean Corpuscular Hemoglobin 30.5 pg (27.0-31.0); Mean Corpuscular Volume 99.5 fL (78.0-98.0); Mean Platelet Volume 10.9 fL (7.4-10.4); Platelet Count 128 10x3/uL (130-400); RBC Distribution Width 14.6 % (11.5-14.5); Red Blood Cell (RBC) Count 3.71 mill/uL (4.70-6.10)
[2024-04-03 00:18] LABS: ALT (SGPT) 14 U/L (8-55); AST (SGOT) 26 U/L (5-34); Albumin 3.4 g/dL (3.5-5.0); Alkaline Phosphatase 58 U/L (40-110); Anion Gap 18 mmol/L (10-20); BUN (Urea Nitrogen) 69 mg/dL (8.9-20.6); Bilirubin, Total 0.6 mg/dL (0.2-1.2); Calc. Creatinine Clearance 0 mL/min (70-130); Calcium 10.2 mg/dL (7.8-10.44); Carbon Dioxide 21 mmol/L (22-29); Chloride 99 mmol/L (98-107); Estimated GFR 6; Globulin 4.3 g/dL (2.4-3.5); Glucose 89 mg/dL (70-105); Potassium 6.7 mmol/L (3.5-5.1); Protein, Total 7.7 g/dL (6.0-8.3); Sodium 131 mmol/L (136-145)
[2024-04-03] MEDS ORDERED: Cephalexin 250 MG CAP ONE ×2 (01:17→04:58)
[2024-04-03] MEDS ORDERED: Sodium Bicarb 50 MEQ/50 ML Abboject 8.4% SYRINGE ONE (01:18)
[2024-04-03] MEDS ORDERED: CALCIUM GLUC 1 GM/NS 50 ML IV Bag ONE (01:18)
[2024-04-03] MEDS ORDERED: Dextrose 10% in Water 250 ML ONE (01:18)
[2024-04-03] MEDS ORDERED: Sodium Polystyrene Sulfonate 15 GM (60 mL) BOT ONE (01:18)
[2024-04-03] MEDS ORDERED: Insulin Regular, Human 100 UNIT/ML 10 ML VIAL ONE (01:19)
[2024-04-03] MEDS ORDERED: Lactulose 20 GM (30 mL) UDCUP ONE (01:19)
[2024-04-03] MEDS ORDERED: LOKELMA 10 GM PACKET PO SCH (02:15)
[2024-04-03 03:39] LABS: ALT (SGPT) 12 U/L (8-55); AST (SGOT) 23 U/L (5-34); Alkaline Phosphatase 50 U/L (40-110); Anion Gap 19 mmol/L (10-20); BUN (Urea Nitrogen) 70 mg/dL (8.9-20.6); Bilirubin, Total 0.7 mg/dL (0.2-1.2); Calc. Creatinine Clearance 0 mL/min (70-130); Calcium 9.8 mg/dL (7.8-10.44); Carbon Dioxide 21 mmol/L (22-29); Chloride 98 mmol/L (98-107); Estimated GFR 6; Globulin 3.8 g/dL (2.4-3.5); Glucose 113 mg/dL (70-105); Potassium 5.5 mmol/L (3.5-5.1); Protein, Total 6.8 g/dL (6.0-8.3); Sodium 132 mmol/L (136-145)
[2024-04-03] MEDS ORDERED: Bacitracin 1 PK ONE (04:47)
== END 2024-04-03 05:14 | disposition home or self-care (01) ==
LOC: ERS 21:59
DX: S91.101A Unspecified open wound of right great toe without damage to nail, initial encounter (principal); E87.5 Hyperkalemia; I12.0 Hypertensive chronic kidney disease with stage 5 chronic kidney disease or end stage renal disease; E11.22 Type 2 diabetes mellitus with diabetic chronic kidney disease; N18.6 End stage renal disease; E78.5 Hyperlipidemia, unspecified; K21.9 Gastro-esophageal reflux disease without esophagitis; Z79.899 Other long term (current) drug therapy; Z79.4 Long term (current) use of insulin; Z99.2 Dependence on renal dialysis; Z87.891 Personal history of nicotine dependence; W26.8XXA Contact with other sharp object(s), not elsewhere classified, initial encounter
CPT/HCPCS: 73630; 80053; 82962; 83605; 85025; 93005; 96365; 96374; 96375; 99284; J0613; J1815; 36415; 36416

== ENCOUNTER 2025-03-26 05:34 | Emergency (ER) | payer OTHER ==
[2025-03-26] MEDS ORDERED: Ketorolac Tromethamine 30 MG (1 mL) VIAL ONE (07:07)
[2025-03-26] MEDS ORDERED: Methocarbamol 500 MG TAB ONE (07:09)
[2025-03-26 07:47] LABS: Anion Gap 21 mmol/L (10-20); BUN (Urea Nitrogen) 77 mg/dL (8.9-20.6); Calc. Creatinine Clearance 0 mL/min (70-130); Calcium 9.3 mg/dL (7.8-10.44); Carbon Dioxide 20 mmol/L (22-29); Chloride 103 mmol/L (98-107); Glucose 145 mg/dL (70-105); Potassium 5.5 mmol/L (3.5-5.1); Sodium 138 mmol/L (136-145)
[2025-03-26 08:21] LABS: #Basophils 0.04 10x3/uL (0.0-0.2); #Eosinophils 0.25 10x3/uL (0.0-0.7); #Monocytes 0.63 10x3/uL (0.11-0.59); #Neutrophils 3.08 10x3/uL (1.40-6.50); %Basophils 0.7 % (0.0-1.0); %Eosinophils 4.3 % (0.0-10.0); %Lymphocytes 30.1 % (21.0-51.0); %Monocytes 11.0 % (0.0-10.0); %Neutrophils 53.6 % (42.0-75.0); Hematocrit 36.1 % (42.0-52.0); Hemoglobin 11.4 g/dL (14.0-18.0); Mean Corpuscular Hemoglobin 30.1 pg (27.0-31.0); Mean Corpuscular Volume 95.3 fL (78.0-98.0); Platelet Count 109 10x3/uL (130-400); Red Blood Cell (RBC) Count 3.79 mill/uL (4.70-6.10); White Blood Cell (WBC) Count 5.75 10x3/uL (4.8-10.8)
[2025-03-26 10:15] LABS: Burr Cells SLIGHT = 2-5 cells HPF (0-1); Platelet Adequacy Comment Platelets Decreased; Polychromasia SLIGHT = 2-3 cells HPF (0-2)
== END 2025-03-26 13:05 | disposition home or self-care (01) ==
LOC: ERS 05:34
DX: S13.9XXA Sprain of joints and ligaments of unspecified parts of neck, initial encounter (principal); E87.5 Hyperkalemia; I12.9 Hypertensive chronic kidney disease with stage 1 through stage 4 chronic kidney disease, or unspecified chronic kidney disease; E11.22 Type 2 diabetes mellitus with diabetic chronic kidney disease; N18.9 Chronic kidney disease, unspecified; E66.9 Obesity, unspecified; Z99.2 Dependence on renal dialysis; Z87.891 Personal history of nicotine dependence; X58.XXXA Exposure to other specified factors, initial encounter
CPT/HCPCS: 71045; 80048; 84484 ×2; 85025; 93005; J1885; 36415; 96374

== ENCOUNTER 2025-04-02 09:55 | Emergency (ER) | payer OTHER ==
[2025-04-02] MEDS ORDERED: Acetaminophen 500 MG TAB ONE (10:53)
[2025-04-02 16:32] LABS: Campy jejuni + coli by PCR Negative (Negative); STEC Shiga Toxin 1+2 Negative (Negative); Salmonella spp. by PCR Negative (Negative); Shigella spp + EIEC by PCR Negative (Negative)
== END 2025-04-02 14:04 | disposition home or self-care (01) ==
LOC: ERS 09:55
DX: K62.89 Other specified diseases of anus and rectum (principal); R19.7 Diarrhea, unspecified; I12.9 Hypertensive chronic kidney disease with stage 1 through stage 4 chronic kidney disease, or unspecified chronic kidney disease; N18.9 Chronic kidney disease, unspecified; E11.22 Type 2 diabetes mellitus with diabetic chronic kidney disease; Z99.2 Dependence on renal dialysis; Z87.891 Personal history of nicotine dependence
CPT/HCPCS: 74176; 87324; 87449; 87505

== ENCOUNTER 2025-05-09 10:37 | Inpatient (IN) | payer OTHER ==
[2025-05-09 11:13] LABS: #Basophils 0.03 10x3/uL (0.0-0.2); #Eosinophils 0.26 10x3/uL (0.0-0.7); #Monocytes 0.78 10x3/uL (0.11-0.59); #Neutrophils 3.12 10x3/uL (1.40-6.50); %Basophils 0.6 % (0.0-1.0); %Eosinophils 4.9 % (0.0-10.0); %Lymphocytes 21.5 % (21.0-51.0); %Monocytes 14.6 % (0.0-10.0); %Neutrophils 58.2 % (42.0-75.0); Hematocrit 36.2 % (42.0-52.0); Hemoglobin 11.3 g/dL (14.0-18.0); Mean Corpuscular Hemoglobin 29.3 pg (27.0-31.0); Mean Corpuscular Volume 93.8 fL (78.0-98.0); Platelet Count 123 10x3/uL (130-400); Red Blood Cell (RBC) Count 3.86 mill/uL (4.70-6.10); White Blood Cell (WBC) Count 5.35 10x3/uL (4.8-10.8)
[2025-05-09 11:27] LABS: ALT (SGPT) Less than 7 U/L (Less than 45); AST (SGOT) 17 U/L (11-34); Albumin 3.2 g/dL (3.1-4.5); Alkaline Phosphatase 92 U/L (40-110); Anion Gap 17 mmol/L (10-20); BUN (Urea Nitrogen) 32 mg/dL (8.9-20.6); Bilirubin, Total 0.4 mg/dL (0.3-1.2); Calc. Creatinine Clearance 0 mL/min (70-130); Calcium 9.8 mg/dL (7.8-10.44); Carbon Dioxide 27 mmol/L (22-29); Chloride 100 mmol/L (98-107); Globulin 4.5 g/dL (2.4-3.5); Glucose 165 mg/dL (70-105); INR-International Normal Ratio 1.1; Potassium 4.2 mmol/L (3.5-5.1); Prothrombin Time 14.2 sec (12.0-14.7); Sodium 140 mmol/L (136-145)
[2025-05-09 11:28] LABS: PTT 41.0 sec (22.9-36.1)
[2025-05-09] MEDS ORDERED: Melatonin 3 MG TAB PO PRN (13:20)
[2025-05-09] MEDS ORDERED: Pharmacy to Dose: VANCOMYCIN IVPB PRN (14:14)
[2025-05-09] MEDS ORDERED: Glucagon 1 MG/ML KIT IM PRN (14:18)
[2025-05-09] MEDS ORDERED: Dextrose 50% Abboject 50 ML SYRINGE SLOW IVP PRN (14:18)
[2025-05-09] MEDS ORDERED: Vancomycin Diaylsis Sliding Scale (Wt 71-99) FS SCH (15:00)
[2025-05-09] MEDS: cefTRIAXone\\ROCEPHIN 2 GM in Sodium Chloride 0.9% 100 ML IVPB SCH (15:45)
[2025-05-09] MEDS: Heparin 5,000 UNITS/ML VIAL SC SCH (15:45)
[2025-05-09] MEDS: VANCOMYCIN 2 GRAM/400 ML Premix BAG IVPB SCH (17:06)
[2025-05-09] MEDS ORDERED: Vancomycin 1.5 GRAM/300 ML BAG IVPB SCH (21:00)
[2025-05-09] MEDS: Pantoprazole 40 MG DR.TAB PO SCH (21:23)
[2025-05-09] MEDS: Carvedilol 25 MG TAB PO SCH (21:23)
[2025-05-09] MEDS: Sacubitril 49 MG/Valsartan 51 MG TABLET PO SCH (21:24)
[2025-05-09] MEDS: Rosuvastatin 10 MG TAB PO SCH (21:24)
[2025-05-10 06:53] LABS: #Basophils Less than 0.03 10x3/uL (0.0-0.2); #Eosinophils 0.24 10x3/uL (0.0-0.7); #Monocytes 0.57 10x3/uL (0.11-0.59); #Neutrophils 1.95 10x3/uL (1.40-6.50); %Basophils 0.5 % (0.0-1.0); %Eosinophils 6.3 % (0.0-10.0); %Lymphocytes 26.7 % (21.0-51.0); %Monocytes 14.9 % (0.0-10.0); %Neutrophils 51.1 % (42.0-75.0); Hematocrit 34.0 % (42.0-52.0); Hemoglobin 10.3 g/dL (14.0-18.0); Mean Corpuscular Hemoglobin 29.5 pg (27.0-31.0); Mean Corpuscular Volume 97.4 fL (78.0-98.0); Platelet Count 122 10x3/uL (130-400); Red Blood Cell (RBC) Count 3.49 mill/uL (4.70-6.10); White Blood Cell (WBC) Count 3.82 10x3/uL (4.8-10.8)
[2025-05-10 07:11] LABS: ALT (SGPT) Less than 7 U/L (Less than 45); AST (SGOT) 10 U/L (11-34); Albumin 2.6 g/dL (3.1-4.5); Alkaline Phosphatase 88 U/L (40-110); Anion Gap 19 mmol/L (10-20); BUN (Urea Nitrogen) 52 mg/dL (8.9-20.6); Bilirubin, Total 0.3 mg/dL (0.3-1.2); Calc. Creatinine Clearance 15 mL/min (70-130); Calcium 9.1 mg/dL (7.8-10.44); Carbon Dioxide 23 mmol/L (22-29); Chloride 101 mmol/L (98-107); Globulin 3.9 g/dL (2.4-3.5); Glucose 147 mg/dL (70-105); Potassium 4.4 mmol/L (3.5-5.1); Sodium 139 mmol/L (136-145)
[2025-05-10] MEDS: Sertraline 100 MG TAB PO SCH (08:33)
[2025-05-10] MEDS ORDERED: Epoetin (ESRD) 20,000 UNITS/ML MDV SC SCH (09:00)
[2025-05-10] MEDS: EPOETIN ALFA-EPBX (ESRD) 10,000 UNITS/ML VIAL SC SCH (12:23)
[2025-05-11 07:05] LABS: #Basophils Less than 0.03 10x3/uL (0.0-0.2); #Eosinophils 0.27 10x3/uL (0.0-0.7); #Monocytes 0.58 10x3/uL (0.11-0.59); #Neutrophils 2.48 10x3/uL (1.40-6.50); %Basophils 0.4 % (0.0-1.0); %Eosinophils 5.6 % (0.0-10.0); %Lymphocytes 30.7 % (21.0-51.0); %Monocytes 11.9 % (0.0-10.0); %Neutrophils 51.0 % (42.0-75.0); Hematocrit 30.1 % (42.0-52.0); Hemoglobin 9.3 g/dL (14.0-18.0); Mean Corpuscular Hemoglobin 29.5 pg (27.0-31.0); Mean Corpuscular Volume 95.6 fL (78.0-98.0); Platelet Count 126 10x3/uL (130-400); Red Blood Cell (RBC) Count 3.15 mill/uL (4.70-6.10); White Blood Cell (WBC) Count 4.86 10x3/uL (4.8-10.8)
[2025-05-11 07:13] LABS: Vancomycin, Trough 23.9 ug/mL
[2025-05-11 07:18] LABS: CRP, High Sensitivity at Bryan 1.71 mg/dL (< or = 0.5)
[2025-05-11 07:19] LABS: ALT (SGPT) Less than 7 U/L (Less than 45); AST (SGOT) 15 U/L (11-34); Albumin 2.6 g/dL (3.1-4.5); Alkaline Phosphatase 70 U/L (40-110); Anion Gap 19 mmol/L (10-20); BUN (Urea Nitrogen) 63 mg/dL (8.9-20.6); Bilirubin, Total 0.4 mg/dL (0.3-1.2); Calc. Creatinine Clearance 12 mL/min (70-130); Calcium 9.2 mg/dL (7.8-10.44); Carbon Dioxide 24 mmol/L (22-29); Chloride 99 mmol/L (98-107); Globulin 3.7 g/dL (2.4-3.5); Glucose 146 mg/dL (70-105); Potassium 4.2 mmol/L (3.5-5.1); Sodium 138 mmol/L (136-145)
[2025-05-11 07:55] LABS: Macrocytosis SLIGHT = 6-15 cells HPF (0-5); Platelet Adequacy Comment Platelets Decreased; Polychromasia SLIGHT = 2-3 cells HPF (0-2); Smudge Cells 6.9 %
[2025-05-11 21:29] LABS: Campy jejuni + coli by PCR Negative (Negative); STEC Shiga Toxin 1+2 Negative (Negative); Salmonella spp. by PCR Negative (Negative); Shigella spp + EIEC by PCR Negative (Negative)
[2025-05-12 06:40] LABS: #Basophils 0.03 10x3/uL (0.0-0.2); #Eosinophils 0.23 10x3/uL (0.0-0.7); #Monocytes 0.67 10x3/uL (0.11-0.59); #Neutrophils 2.45 10x3/uL (1.40-6.50); %Basophils 0.6 % (0.0-1.0); %Eosinophils 4.7 % (0.0-10.0); %Lymphocytes 30.7 % (21.0-51.0); %Monocytes 13.7 % (0.0-10.0); %Neutrophils 50.1 % (42.0-75.0); Hematocrit 34.9 % (42.0-52.0); Hemoglobin 10.5 g/dL (14.0-18.0); Mean Corpuscular Hemoglobin 29.8 pg (27.0-31.0); Mean Corpuscular Volume 99.1 fL (78.0-98.0); Platelet Count 126 10x3/uL (130-400); Red Blood Cell (RBC) Count 3.52 mill/uL (4.70-6.10); White Blood Cell (WBC) Count 4.89 10x3/uL (4.8-10.8)
[2025-05-12 06:59] LABS: ALT (SGPT) Less than 7 U/L (Less than 45); AST (SGOT) 12 U/L (11-34); Albumin 2.8 g/dL (3.1-4.5); Alkaline Phosphatase 70 U/L (40-110); Anion Gap 20 mmol/L (10-20); BUN (Urea Nitrogen) 41 mg/dL (8.9-20.6); Bilirubin, Total 0.5 mg/dL (0.3-1.2); Calc. Creatinine Clearance 17 mL/min (70-130); Calcium 9.7 mg/dL (7.8-10.44); Carbon Dioxide 25 mmol/L (22-29); Chloride 96 mmol/L (98-107); Globulin 4.0 g/dL (2.4-3.5); Glucose 120 mg/dL (70-105); Potassium 4.7 mmol/L (3.5-5.1); Sodium 136 mmol/L (136-145)
[2025-05-12 18:05] VITALS: BMI 28.3
[2025-05-13 09:07] LABS: Hematocrit 35.7 % (42.0-52.0); Hemoglobin 10.6 g/dL (14.0-18.0); Mean Corpuscular Hemoglobin 29.0 pg (27.0-31.0); Mean Corpuscular Volume 97.8 fL (78.0-98.0); Platelet Count 127 10x3/uL (130-400); Red Blood Cell (RBC) Count 3.65 mill/uL (4.70-6.10); White Blood Cell (WBC) Count 5.03 10x3/uL (4.8-10.8)
[2025-05-13 09:27] LABS: ALT (SGPT) Less than 7 U/L (Less than 45); AST (SGOT) 16 U/L (11-34); Albumin 3.0 g/dL (3.1-4.5); Alkaline Phosphatase 75 U/L (40-110); Anion Gap 22 mmol/L (10-20); BUN (Urea Nitrogen) 66 mg/dL (8.9-20.6); Bilirubin, Total 0.5 mg/dL (0.3-1.2); Calc. Creatinine Clearance 12 mL/min (70-130); Calcium 9.9 mg/dL (7.8-10.44); Carbon Dioxide 22 mmol/L (22-29); Chloride 99 mmol/L (98-107); Globulin 4.5 g/dL (2.4-3.5); Glucose 210 mg/dL (70-105); Potassium 4.9 mmol/L (3.5-5.1); Sodium 138 mmol/L (136-145)
[2025-05-13 09:52] LABS: Macrocytosis SLIGHT = 6-15 cells HPF (0-5); Ovalocytes SLIGHT = 2-5 cells HPF (0-1); Platelet Adequacy Comment Platelets Normal; Polychromasia SLIGHT = 2-3 cells HPF (0-2)
[2025-05-13 09:53] LABS: #Basophils 0.03 10x3/uL (0.0-0.2); #Eosinophils 0.26 10x3/uL (0.0-0.7); #Monocytes 0.61 10x3/uL (0.11-0.59); #Neutrophils 2.53 10x3/uL (1.40-6.50); %Basophils 0.6 % (0.0-1.0); %Eosinophils 5.4 % (0.0-10.0); %Lymphocytes 30.0 % (21.0-51.0); %Monocytes 12.3 % (0.0-10.0); %Neutrophils 51.2 % (42.0-75.0)
[2025-05-14] MEDS: Diphenoxylate HCl/Atropine Tablet PO SCH (08:00)
[2025-05-14] MEDS: Acetaminophen 325 MG TAB PO PRN (12:42)
[2025-05-14 13:48] LABS: #Basophils 0.03 10x3/uL (0.0-0.2); #Eosinophils 0.19 10x3/uL (0.0-0.7); #Monocytes 0.59 10x3/uL (0.11-0.59); #Neutrophils 2.49 10x3/uL (1.40-6.50); %Basophils 0.7 % (0.0-1.0); %Eosinophils 4.4 % (0.0-10.0); %Lymphocytes 22.5 % (21.0-51.0); %Monocytes 13.8 % (0.0-10.0); %Neutrophils 58.4 % (42.0-75.0); Hematocrit 33.8 % (42.0-52.0); Hemoglobin 10.6 g/dL (14.0-18.0); Mean Corpuscular Hemoglobin 29.5 pg (27.0-31.0); Mean Corpuscular Volume 94.2 fL (78.0-98.0); Platelet Count 132 10x3/uL (130-400); Red Blood Cell (RBC) Count 3.59 mill/uL (4.70-6.10); White Blood Cell (WBC) Count 4.27 10x3/uL (4.8-10.8)
[2025-05-14 14:03] LABS: Vancomycin, Trough 14.6 ug/mL
[2025-05-14 14:15] LABS: ALT (SGPT) Less than 7 U/L (Less than 45); AST (SGOT) 22 U/L (11-34); Albumin 3.1 g/dL (3.1-4.5); Alkaline Phosphatase 71 U/L (40-110); Anion Gap 15 mmol/L (10-20); BUN (Urea Nitrogen) 34 mg/dL (8.9-20.6); Bilirubin, Total 0.4 mg/dL (0.3-1.2); Calc. Creatinine Clearance 26 mL/min (70-130); Calcium 9.5 mg/dL (7.8-10.44); Carbon Dioxide 30 mmol/L (22-29); Chloride 95 mmol/L (98-107); Globulin 4.6 g/dL (2.4-3.5); Glucose 122 mg/dL (70-105); Potassium 3.4 mmol/L (3.5-5.1); Sodium 137 mmol/L (136-145)
[2025-05-14] MEDS: Vancomycin 1 GM in Premix 1 BAG IVPB SCH (16:50)
[2025-05-15 06:18] LABS: #Basophils 0.03 10x3/uL (0.0-0.2); #Eosinophils 0.25 10x3/uL (0.0-0.7); #Monocytes 0.82 10x3/uL (0.11-0.59); #Neutrophils 2.49 10x3/uL (1.40-6.50); %Basophils 0.5 % (0.0-1.0); %Eosinophils 4.5 % (0.0-10.0); %Lymphocytes 34.4 % (21.0-51.0); %Monocytes 14.9 % (0.0-10.0); %Neutrophils 45.3 % (42.0-75.0); Hematocrit 34.6 % (42.0-52.0); Hemoglobin 10.9 g/dL (14.0-18.0); Mean Corpuscular Hemoglobin 30.0 pg (27.0-31.0); Mean Corpuscular Volume 95.3 fL (78.0-98.0); Platelet Count 133 10x3/uL (130-400); Red Blood Cell (RBC) Count 3.63 mill/uL (4.70-6.10); White Blood Cell (WBC) Count 5.50 10x3/uL (4.8-10.8)
[2025-05-15 06:34] LABS: ALT (SGPT) 7 U/L (Less than 45); AST (SGOT) 20 U/L (11-34); Albumin 2.8 g/dL (3.1-4.5); Alkaline Phosphatase 62 U/L (40-110); Anion Gap 18 mmol/L (10-20); BUN (Urea Nitrogen) 48 mg/dL (8.9-20.6); Bilirubin, Total 0.5 mg/dL (0.3-1.2); Calc. Creatinine Clearance 16 mL/min (70-130); Calcium 10.0 mg/dL (7.8-10.44); Carbon Dioxide 27 mmol/L (22-29); Chloride 95 mmol/L (98-107); Globulin 4.2 g/dL (2.4-3.5); Glucose 123 mg/dL (70-105); Potassium 4.9 mmol/L (3.5-5.1); Sodium 135 mmol/L (136-145)
[2025-05-15] MEDS ORDERED: Heparin 10,000 UNITS/ 10 ML VIAL ONE (08:43)
[2025-05-15] MEDS ORDERED: Lidocaine 1% (PF) 30 ML VIAL ONE (08:43)
[2025-05-15 09:18] LABS: ALT (SGPT) Less than 7 U/L (Less than 45); AST (SGOT) 21 U/L (11-34); Albumin 3.0 g/dL (3.1-4.5); Alkaline Phosphatase 68 U/L (40-110); Anion Gap 20 mmol/L (10-20); BUN (Urea Nitrogen) 51 mg/dL (8.9-20.6); Bilirubin, Total 0.5 mg/dL (0.3-1.2); Calc. Creatinine Clearance 15 mL/min (70-130); Calcium 10.2 mg/dL (7.8-10.44); Carbon Dioxide 27 mmol/L (22-29); Chloride 95 mmol/L (98-107); Globulin 4.6 g/dL (2.4-3.5); Glucose 124 mg/dL (70-105); Potassium 5.0 mmol/L (3.5-5.1); Sodium 137 mmol/L (136-145)
[2025-05-15] MEDS ORDERED: Iopamidol 370 76% 100 ML VIAL ONE (10:39)
[2025-05-16 05:30] LABS: #Basophils 0.03 10x3/uL (0.0-0.2); #Eosinophils 0.24 10x3/uL (0.0-0.7); #Monocytes 0.75 10x3/uL (0.11-0.59); #Neutrophils 2.65 10x3/uL (1.40-6.50); %Basophils 0.5 % (0.0-1.0); %Eosinophils 4.3 % (0.0-10.0); %Lymphocytes 33.8 % (21.0-51.0); %Monocytes 13.5 % (0.0-10.0); %Neutrophils 47.5 % (42.0-75.0); Hematocrit 35.1 % (42.0-52.0); Hemoglobin 11.1 g/dL (14.0-18.0); Mean Corpuscular Hemoglobin 29.8 pg (27.0-31.0); Mean Corpuscular Volume 94.4 fL (78.0-98.0); Platelet Count 134 10x3/uL (130-400); Red Blood Cell (RBC) Count 3.72 mill/uL (4.70-6.10); White Blood Cell (WBC) Count 5.57 10x3/uL (4.8-10.8)
[2025-05-16 05:43] LABS: ALT (SGPT) 7 U/L (Less than 45); AST (SGOT) 17 U/L (11-34); Albumin 2.9 g/dL (3.1-4.5); Alkaline Phosphatase 65 U/L (40-110); Anion Gap 20 mmol/L (10-20); BUN (Urea Nitrogen) 67 mg/dL (8.9-20.6); Bilirubin, Total 0.6 mg/dL (0.3-1.2); Calc. Creatinine Clearance 12 mL/min (70-130); Calcium 10.2 mg/dL (7.8-10.44); Carbon Dioxide 26 mmol/L (22-29); Chloride 94 mmol/L (98-107); Globulin 4.2 g/dL (2.4-3.5); Glucose 130 mg/dL (70-105); Potassium 4.9 mmol/L (3.5-5.1); Sodium 135 mmol/L (136-145)
[2025-05-16 07:38] LABS: Vancomycin, Trough 27.8 ug/mL
[2025-05-16 08:01] LABS: Hep C Index 0.08 S/CO (0-0.79)
[2025-05-16] MEDS: Diphenoxylate HCl/Atropine Tablet PO SCH (08:47)
[2025-05-16 09:00] LABS: HBSAB Concentration 149.81 mIU/mL; Hep B Core Total Ab REACTIVE (NonReactive); Hep B Core Total Index 9.67 S/CO (0-0.79); Hep B Surf Ag NONREACTIVE S/CO (NonReactive); Hep C IgG Ab NONREACTIVE S/CO (NonReactive)
[2025-05-16] MEDS: Ondansetron PF 4 MG/2 ML Vial IVP SCH (09:45)
[2025-05-16] MEDS ORDERED: Lidocaine 1% PF 5 ML VIAL ONE (11:57)
[2025-05-16] MEDS ORDERED: Bupivacaine 0.25% HCL 30 ML VIAL ONE (12:22)
[2025-05-16] MEDS ORDERED: Etomidate 40 MG (20 mL) VIAL ONE (13:05)
[2025-05-16] MEDS ORDERED: PROPOFOL 200 MG/20 ML VIAL ONE (13:17)
[2025-05-16] MEDS ORDERED: Ondansetron PF 4 MG/2 ML Vial ONE (13:20)
[2025-05-17 07:09] LABS: #Basophils 0.03 10x3/uL (0.0-0.2); #Eosinophils 0.16 10x3/uL (0.0-0.7); #Monocytes 0.54 10x3/uL (0.11-0.59); #Neutrophils 2.54 10x3/uL (1.40-6.50); %Basophils 0.6 % (0.0-1.0); %Eosinophils 3.4 % (0.0-10.0); %Lymphocytes 29.6 % (21.0-51.0); %Monocytes 11.6 % (0.0-10.0); %Neutrophils 54.6 % (42.0-75.0); Hematocrit 32.4 % (42.0-52.0); Hemoglobin 9.9 g/dL (14.0-18.0); Mean Corpuscular Hemoglobin 30.0 pg (27.0-31.0); Mean Corpuscular Volume 98.2 fL (78.0-98.0); Platelet Count 135 10x3/uL (130-400); Red Blood Cell (RBC) Count 3.30 mill/uL (4.70-6.10); White Blood Cell (WBC) Count 4.66 10x3/uL (4.8-10.8)
[2025-05-17 07:33] LABS: ALT (SGPT) 10 U/L (Less than 45); AST (SGOT) 22 U/L (11-34); Albumin 2.8 g/dL (3.1-4.5); Alkaline Phosphatase 60 U/L (40-110); Anion Gap 16 mmol/L (10-20); BUN (Urea Nitrogen) 39 mg/dL (8.9-20.6); Bilirubin, Total 0.6 mg/dL (0.3-1.2); Calc. Creatinine Clearance 18 mL/min (70-130); Calcium 9.3 mg/dL (7.8-10.44); Carbon Dioxide 29 mmol/L (22-29); Chloride 96 mmol/L (98-107); Globulin 4.0 g/dL (2.4-3.5); Glucose 120 mg/dL (70-105); Potassium 4.0 mmol/L (3.5-5.1); Sodium 137 mmol/L (136-145)
[2025-05-17 14:22] VITALS: BMI 28.3
[2025-05-17] MEDS: EPOETIN ALFA-EPBX (ESRD) 10,000 UNITS/ML VIAL SC SCH (15:37)
[2025-05-18 05:35] LABS: ALT (SGPT) 9 U/L (Less than 45); AST (SGOT) 20 U/L (11-34); Albumin 2.9 g/dL (3.1-4.5); Alkaline Phosphatase 63 U/L (40-110); Anion Gap 17 mmol/L (10-20); BUN (Urea Nitrogen) 58 mg/dL (8.9-20.6); Bilirubin, Total 0.5 mg/dL (0.3-1.2); Calc. Creatinine Clearance 13 mL/min (70-130); Calcium 9.8 mg/dL (7.8-10.44); Carbon Dioxide 28 mmol/L (22-29); Chloride 95 mmol/L (98-107); Globulin 4.2 g/dL (2.4-3.5); Glucose 127 mg/dL (70-105); Potassium 4.2 mmol/L (3.5-5.1); Sodium 136 mmol/L (136-145)
[2025-05-18 05:48] LABS: #Basophils Less than 0.03 10x3/uL (0.0-0.2); #Eosinophils 0.25 10x3/uL (0.0-0.7); #Monocytes 0.64 10x3/uL (0.11-0.59); #Neutrophils 2.81 10x3/uL (1.40-6.50); %Basophils 0.4 % (0.0-1.0); %Eosinophils 4.7 % (0.0-10.0); %Lymphocytes 29.0 % (21.0-51.0); %Monocytes 12.1 % (0.0-10.0); %Neutrophils 53.4 % (42.0-75.0); Hematocrit 32.4 % (42.0-52.0); Hemoglobin 9.9 g/dL (14.0-18.0); Mean Corpuscular Hemoglobin 29.4 pg (27.0-31.0); Mean Corpuscular Volume 96.1 fL (78.0-98.0); Platelet Count 127 10x3/uL (130-400); Red Blood Cell (RBC) Count 3.37 mill/uL (4.70-6.10); White Blood Cell (WBC) Count 5.27 10x3/uL (4.8-10.8)
[2025-05-18 06:20] LABS: Nucleated RBC (Manual Ct) 1 % (0); Platelet Adequacy Comment Platelets Decreased; Smudge Cells 8.0 %
[2025-05-19 05:49] LABS: #Basophils Less than 0.03 10x3/uL (0.0-0.2); #Eosinophils 0.24 10x3/uL (0.0-0.7); #Monocytes 0.70 10x3/uL (0.11-0.59); #Neutrophils 2.27 10x3/uL (1.40-6.50); %Basophils 0.4 % (0.0-1.0); %Eosinophils 5.1 % (0.0-10.0); %Lymphocytes 31.5 % (21.0-51.0); %Monocytes 14.8 % (0.0-10.0); %Neutrophils 48.0 % (42.0-75.0); Hematocrit 35.2 % (42.0-52.0); Hemoglobin 10.7 g/dL (14.0-18.0); Mean Corpuscular Hemoglobin 29.5 pg (27.0-31.0); Mean Corpuscular Volume 97.0 fL (78.0-98.0); Platelet Count 129 10x3/uL (130-400); Red Blood Cell (RBC) Count 3.63 mill/uL (4.70-6.10); White Blood Cell (WBC) Count 4.73 10x3/uL (4.8-10.8)
[2025-05-19 06:00] LABS: ALT (SGPT) 10 U/L (Less than 45); AST (SGOT) 22 U/L (11-34); Albumin 3.0 g/dL (3.1-4.5); Alkaline Phosphatase 64 U/L (40-110); Anion Gap 15 mmol/L (10-20); BUN (Urea Nitrogen) 40 mg/dL (8.9-20.6); Bilirubin, Total 0.7 mg/dL (0.3-1.2); Calc. Creatinine Clearance 17 mL/min (70-130); Calcium 10.2 mg/dL (7.8-10.44); Carbon Dioxide 32 mmol/L (22-29); Chloride 92 mmol/L (98-107); Globulin 4.3 g/dL (2.4-3.5); Glucose 159 mg/dL (70-105); Potassium 4.2 mmol/L (3.5-5.1); Sodium 135 mmol/L (136-145)
[2025-05-19] MEDS: Calcitriol 0.25 MCG CAP PO SCH (09:09)
[2025-05-20 07:08] LABS: #Basophils 0.03 10x3/uL (0.0-0.2); #Eosinophils 0.29 10x3/uL (0.0-0.7); #Monocytes 0.57 10x3/uL (0.11-0.59); #Neutrophils 2.80 10x3/uL (1.40-6.50); %Basophils 0.6 % (0.0-1.0); %Eosinophils 5.7 % (0.0-10.0); %Lymphocytes 26.5 % (21.0-51.0); %Monocytes 11.3 % (0.0-10.0); %Neutrophils 55.5 % (42.0-75.0); Hematocrit 35.2 % (42.0-52.0); Hemoglobin 10.8 g/dL (14.0-18.0); Mean Corpuscular Hemoglobin 29.6 pg (27.0-31.0); Mean Corpuscular Volume 96.4 fL (78.0-98.0); Platelet Count 128 10x3/uL (130-400); Red Blood Cell (RBC) Count 3.65 mill/uL (4.70-6.10); White Blood Cell (WBC) Count 5.05 10x3/uL (4.8-10.8)
[2025-05-20 07:22] LABS: ALT (SGPT) 9 U/L (Less than 45); AST (SGOT) 25 U/L (11-34); Albumin 3.0 g/dL (3.1-4.5); Alkaline Phosphatase 64 U/L (40-110); Anion Gap 18 mmol/L (10-20); BUN (Urea Nitrogen) 57 mg/dL (8.9-20.6); Bilirubin, Total 0.5 mg/dL (0.3-1.2); Calc. Creatinine Clearance 14 mL/min (70-130); Calcium 10.3 mg/dL (7.8-10.44); Carbon Dioxide 27 mmol/L (22-29); Chloride 94 mmol/L (98-107); Globulin 4.7 g/dL (2.4-3.5); Glucose 137 mg/dL (70-105); Potassium 4.4 mmol/L (3.5-5.1); Sodium 135 mmol/L (136-145)
[2025-05-21 11:59] LABS: #Basophils 0.04 10x3/uL (0.0-0.2); #Eosinophils 0.31 10x3/uL (0.0-0.7); #Monocytes 0.56 10x3/uL (0.11-0.59); #Neutrophils 2.97 10x3/uL (1.40-6.50); %Basophils 0.8 % (0.0-1.0); %Eosinophils 6.1 % (0.0-10.0); %Lymphocytes 22.9 % (21.0-51.0); %Monocytes 11.1 % (0.0-10.0); %Neutrophils 58.7 % (42.0-75.0); Hematocrit 32.2 % (42.0-52.0); Hemoglobin 10.2 g/dL (14.0-18.0); Mean Corpuscular Hemoglobin 29.8 pg (27.0-31.0); Mean Corpuscular Volume 94.2 fL (78.0-98.0); Platelet Count 147 10x3/uL (130-400); Red Blood Cell (RBC) Count 3.42 mill/uL (4.70-6.10); White Blood Cell (WBC) Count 5.06 10x3/uL (4.8-10.8)
[2025-05-21 17:23] LABS: ALT (SGPT) 10 U/L (Less than 45); AST (SGOT) 23 U/L (11-34); Albumin 2.9 g/dL (3.1-4.5); Alkaline Phosphatase 60 U/L (40-110); Anion Gap 14 mmol/L (10-20); BUN (Urea Nitrogen) 33 mg/dL (8.9-20.6); Bilirubin, Total 0.4 mg/dL (0.3-1.2); Calc. Creatinine Clearance 19 mL/min (70-130); Calcium 9.5 mg/dL (7.8-10.44); Carbon Dioxide 30 mmol/L (22-29); Chloride 94 mmol/L (98-107); Globulin 4.2 g/dL (2.4-3.5); Glucose 171 mg/dL (70-105); Potassium 3.8 mmol/L (3.5-5.1); Sodium 134 mmol/L (136-145)
[2025-05-21] MEDS: Amoxicillin/Potassium Clav 875 MG TAB PO SCH (20:52)
[2025-05-22 05:55] LABS: ALT (SGPT) 9 U/L (Less than 45); AST (SGOT) 23 U/L (11-34); Albumin 2.9 g/dL (3.1-4.5); Alkaline Phosphatase 62 U/L (40-110); Anion Gap 15 mmol/L (10-20); BUN (Urea Nitrogen) 47 mg/dL (8.9-20.6); Bilirubin, Total 0.5 mg/dL (0.3-1.2); Calc. Creatinine Clearance 16 mL/min (70-130); Calcium 9.9 mg/dL (7.8-10.44); Carbon Dioxide 31 mmol/L (22-29); Chloride 93 mmol/L (98-107); Globulin 4.5 g/dL (2.4-3.5); Glucose 144 mg/dL (70-105); Potassium 4.4 mmol/L (3.5-5.1); Sodium 135 mmol/L (136-145)
[2025-05-22 05:58] LABS: #Basophils Less than 0.03 10x3/uL (0.0-0.2); #Eosinophils 0.32 10x3/uL (0.0-0.7); #Monocytes 0.72 10x3/uL (0.11-0.59); #Neutrophils 2.53 10x3/uL (1.40-6.50); %Basophils 0.4 % (0.0-1.0); %Eosinophils 6.5 % (0.0-10.0); %Lymphocytes 27.0 % (21.0-51.0); %Monocytes 14.6 % (0.0-10.0); %Neutrophils 51.3 % (42.0-75.0); Hematocrit 35.3 % (42.0-52.0); Hemoglobin 11.1 g/dL (14.0-18.0); Mean Corpuscular Hemoglobin 30.2 pg (27.0-31.0); Mean Corpuscular Volume 95.9 fL (78.0-98.0); Platelet Count 126 10x3/uL (130-400); Red Blood Cell (RBC) Count 3.68 mill/uL (4.70-6.10); White Blood Cell (WBC) Count 4.93 10x3/uL (4.8-10.8)
[2025-05-22 09:58] VITALS: BP 114/70; TEMP 98.3
== END 2025-05-22 10:47 | DRG 622 ==
LOC: ERS 10:37 → T4-A 13:03
PROVIDERS: ADMIT Student in an Organized Health Care Education/Training Program; ATTEND Student in an Organized Health Care Education/Training Program
PROC: 3E03329 Introduction of Other Anti-infective into Peripheral Vein, Percutaneous Approach (ICD-10-PCS; principal; 2025-05-09)
PROC: 5A1D70Z Performance of Urinary Filtration, Intermittent, Less than 6 Hours Per Day (ICD-10-PCS; 2025-05-10)
PROC: B51H1ZZ Fluoroscopy of Bilateral Pelvic (Iliac) Veins using Low Osmolar Contrast (ICD-10-PCS; 2025-05-15)
PROC: B51V1ZZ Fluoroscopy of Other Veins using Low Osmolar Contrast (ICD-10-PCS; 2025-05-15)
PROC: 0JBQ0ZZ Excision of Right Foot Subcutaneous Tissue and Fascia, Open Approach (ICD-10-PCS; 2025-05-16)
DX: E11.622 Type 2 diabetes mellitus with other skin ulcer (principal); N18.6 End stage renal disease; I12.0 Hypertensive chronic kidney disease with stage 5 chronic kidney disease or end stage renal disease; N25.81 Secondary hyperparathyroidism of renal origin; K21.9 Gastro-esophageal reflux disease without esophagitis; E78.5 Hyperlipidemia, unspecified; E66.9 Obesity, unspecified; Z96.652 Presence of left artificial knee joint; F17.210 Nicotine dependence, cigarettes, uncomplicated; D64.9 Anemia, unspecified; D69.6 Thrombocytopenia, unspecified; H54.7 Unspecified visual loss; I73.9 Peripheral vascular disease, unspecified; Z68.28 Body mass index [BMI] 28.0-28.9, adult; Z95.0 Presence of cardiac pacemaker; Z89.421 Acquired absence of other right toe(s); Z99.2 Dependence on renal dialysis; Z90.49 Acquired absence of other specified parts of digestive tract; Z98.890 Other specified postprocedural states; Z89.022 Acquired absence of left finger(s); Z79.899 Other long term (current) drug therapy; E11.22 Type 2 diabetes mellitus with diabetic chronic kidney disease; Z79.2 Long term (current) use of antibiotics; Z79.4 Long term (current) use of insulin
CPT/HCPCS: 36247; 36415; 36416; 75625; 75710; 75716; 75774; 75820; 76014; 80053; 80202; 83036; 83605; 83970; 84100; 85025; 85610; 85730; 86141; 86704; 86706; 86803; 87040; 87070; 87076; 87077; 87186; 87205; 87324; 87340; 87449; 87505; 90935; 93005; 93923; 97139; 99285; C1760; C1769; C1887; C1894; G0257; J0169; J0665; J0696; J1644; J1815; J2003; J2250; J2405; J2543; J2704; J3010; J3373; J3375; Q5105; Q9967